=== PATIENT | male | born 1950 | race Caucasian/White ===

== ENCOUNTER → 2016-09-26 | Outpatient (CLI) | payer MEDICARE, MEDICAID | LOC: VM.CT 12:42 | PROVIDERS: ATTEND Family Medicine | DX: R70.0 Elevated erythrocyte sedimentation rate (principal); M54.9 Dorsalgia, unspecified; R63.4 Abnormal weight loss; M47.812 Spondylosis without myelopathy or radiculopathy, cervical region; M48.55XA Collapsed vertebra, not elsewhere classified, thoracolumbar region, initial encounter for fracture; W19.XXXA Unspecified fall, initial encounter | CPT/HCPCS: 70450; 72125; 72128; 72131 ==

== ENCOUNTER 2016-10-26 11:24 | Inpatient (IN) | payer MEDICARE, MEDICAID ==
[2016-10-26] MEDS ORDERED: Heparin Sodium 100 Units/ML 3 ML Syringe IVPUSH SCH (15:15)
[2016-10-26] MEDS ORDERED: Acetaminophen 325 MG Tab PO PRN (15:34)
[2016-10-26] MEDS ORDERED: Bisacodyl 5 MG Tab PO PRN ×2 (15:34→16:16)
[2016-10-26] MEDS: Furosemide 20 MG Tab PO SCH (15:50)
[2016-10-26] MEDS: Acetaminophen/HYDROcodone 325-5 MG Tab PO PRN ×2 (15:50→20:44)
[2016-10-26] MEDS: LORazepam 2 MG/ML MDV IVPUSH PRN ×2 (16:58→20:46)
[2016-10-26] MEDS: Calcium Citrate/Vitamin D3 315 MG-250 Unit Tab PO SCH (17:02)
[2016-10-26] MEDS: Insulin Aspart 100 Units/ML 3 ML Pen SUBCUT SCH (17:02)
[2016-10-26] MEDS ORDERED: CALCIUM CITRATE PO SCH (18:00)
[2016-10-26] MEDS ORDERED: VITAMIN D3 PO SCH (18:00)
[2016-10-26] MEDS ORDERED: [UNRECOGNIZED DRUG - OTHER] PO SCH (18:00)
[2016-10-26] MEDS: Heparin Sodium 100 Units/ML 3 ML Syringe IVPUSH PRN (18:21)
[2016-10-26] MEDS: Sodium Chloride 0.9% 10 ML Syringe IV PRN ×2 (18:22→20:46)
[2016-10-26] MEDS ORDERED: atorvaSTATin 10 MG Tab PO SCH (20:00)
[2016-10-26] MEDS ORDERED: OMEGA PO SCH (20:00)
[2016-10-26] MEDS ORDERED: FLUVOXAMINE MALEATE 200 MG PO SCH (20:00)
[2016-10-26] MEDS ORDERED: FLUVOXAMINE 100 MG PO SCH (20:00)
[2016-10-26] MEDS ORDERED: EPA PO SCH (20:00)
[2016-10-26] MEDS ORDERED: [UNRECOGNIZED DRUG - OTHER] PO SCH (20:00)
[2016-10-26] MEDS ORDERED: RISPERIDONE 2 MG PO SCH (20:00)
[2016-10-26] MEDS ORDERED: Furosemide 20 MG Tab PO SCH (20:00)
[2016-10-26] MEDS ORDERED: DHA PO SCH (20:00)
[2016-10-26] MEDS ORDERED: LIRAGLUTIDE 0.6 MG SUBCUT SCH (20:00)
[2016-10-26] MEDS ORDERED: FISH OIL PO SCH (20:00)
[2016-10-26] MEDS: cefTRIAXone 2 GM Vial IV SCH (20:45)
[2016-10-26] MEDS: risperiDONE 1 MG Tab PO SCH (20:47)
[2016-10-26] MEDS: atorvaSTATin 10 MG Tab PO SCH (20:47)
[2016-10-26] MEDS: Lactobacillus Rhamnosus GG (Probiotic) Cap PO SCH (20:49)
[2016-10-26] MEDS: Fish Oil/Omega-3 Fatty Acids 1 Gm Cap PO SCH (20:49)
[2016-10-26] MEDS: Enoxaparin 120 MG/0.8 ML Syringe SUBCUT SCH (20:50)
[2016-10-26] MEDS: Heparin Sodium 100 Units/ML 3 ML Syringe IVPUSH SCH (20:51)
[2016-10-26] MEDS: VICTOZA 18MG/3ML SUBCUT SCH (21:13)
--- NOTE | 2016-10-26 21:30 | PCM.HP ---
H&P History of Present Illness - General Date of Service: 10/26/16 Admit Problem/Dx: Admission Diagnosis/Problem Admission Diagnosis/Problem Postoperative infection - History of Present Illness Initial Comments - Free Text/Narative: HPI: Patient moved from [facility] to [facility] 11/08, to [facility] Psych unit 01/06. He has had a lot of trouble there with leg edema and stasis and traumatic ulceration of his lower legs. That was just starting to improve, partly because he became less physically active, in 10/09 when he fell twice at the long-term. CTs were read as abnormal and suspicious, and MRI confirmed he had an unstable spine fracture, so that was treated with fusion by grafting on 10/01/16. The wound did not look definitely infected until 10/16/16 when there was dehiscence of the skin and into the fat on removing the nader. There was a lot of serous drainage so he was sent back to [facility]. On 10/17/16 he underwent surgical exploration and debridement, after that and with cultures, the wound was again closed and he is going to 6 weeks of IV antibiotic in a PICC line in his R arm. His culture grew staph epidermidis resistant to oxacillin but sensitive to vancomycin. He is getting Rocephin and vancomycin for the 6 weeks. He did not have neurologic deficit from the unstable spine fracture that he is morbidly obese with some cognitive dysfunction, and now probably mild delirium, and requires Liliane lift for transfers. He is admitted today on Swing Bed to complete his course of antibiotics. Besides his other medical problems he has type 2 diabetes, DX since at least . His diabetes has been well controlled, Glycated Hb usually <7, including 6.8 in 02/05 and 6.7 in 09/07. Medical History: Type 2 diabetes since 06/26 Hx of DVT, on Coumadin until 12/03 Previous DX of hypertension, hyperlipidemia, osteoarthritis, morbid obesity, restless leg syndrome, depression, benign prostatic hypertrophy. Surgical History: Colonoscopy with polypectomies 03/07 Hernia repair R Lumbar fusion for unstable fracture 10/01/16 Surgical debridement for wound infection 10/17/16 and 10/25/16 Family History: Had 4 brothers, 3 still living, one of those has diabetes type 2 and another has leukemia Social History: We only know that he had been in basic care in [facility] for a few years. He has been Full Code status. He is his own guardian so far although there is consideration of having a guardian appointed. Systems Review: -General: He cannot really answer questions, agitation and mild delirium now -Eyes: No known problem -ENT: Hearing OK, has no teeth -Cardiac: Has been noted to have a heart murmur and has been told some years ago that he had one, no recorded EchoKG -Pulmonary: Smoker until , no record of any lung disease -GI: No known problem, has had colonoscopy -: Incontinent now, wearing briefs, in the long-term I believe he was continent; no problem with renal function -Musculoskeletal: His only complaint is of back pain presently, has not been able to move well enough to ambulate on his own since the back injury, did walk slowly with minimal help before that -Endocrine: As noted above, diabetes well-controlled on Levemir and Victoza -Derm: Remarkable healing of all of his stasis ulcers after his edema cleared and he no longer can scratch his lower legs -Heme: No known problem -Allergies: No seasonal allergies known -Neurologic: Usually answers questions appropriately and therefore has not had a guardian appointed so far -Psych: After elopement from the long-term he was put back in the Psych unit and has had regular Psych F/U at [facility] Lower Back Pain Score (Numeric/FACES): 2 - Related Data Allergies/Adverse Reactions: Allergies Allergy/AdvReac Type Severity Reaction Status Date / Time aspirin Allergy Other Verified 10/26/16 11:51 NSAIDS (Non-Steroidal Allergy Other Verified 10/13/16 20:05 Anti-Inflamma Home Medications: Home Meds Potassium Chloride 10 meq PO DAILY 08/28/16 [History] Acetaminophen [Tylenol] 650 mg PO Q4H PRN 10/13/16 [History] Bisacodyl [Dulcolax] 5 mg PO DAILY PRN 10/13/16 [History] Calcitonin ([place]) [Miacalcin Nasal [place]] 200 units OJ DAILY 10/13/16 [ History] Calcium Citrate/Vitamin D3 [Calcium Citrate - Vit D Caplet] 1 each PO BIDMEALS 10/13/16 [History] ClonazePAM [KlonoPIN] 1 mg PO DAILY 10/13/16 [History] Furosemide [Lasix] 20 mg PO BID 10/13/16 [History] Insulin Detemir [Levemir Flextouch] 12 unit SQ DAILY 10/13/16 [History] Liraglutide [Victoza] 0.6 mg SUBCUT BEDTIME 10/13/16 [History] Losartan [Cozaar] 100 mg PO DAILY 10/13/16 [History] Metoprolol Succinate [Toprol XL] 50 mg PO DAILY 10/13/16 [History] Multivitamin [Daily Doc] 1 each PO DAILY 10/13/16 [History] [place]-3/DHA/Epa/Fish Oil [[place] 3 500 Softgel] 1,000 mg PO BID 10/13/16 [History ] Spironolactone [Aldactone] 25 mg PO DAILY 10/13/16 [History] Warfarin [Coumadin] 2.5 mg PO DAILY 10/13/16 [History] atorvaSTATin [Lipitor] 10 mg PO BEDTIME 10/13/16 [History] fluvoxaMINE Maleate [Fluvoxamine Maleate ER] 200 mg PO BEDTIME 10/13/16 [History ] risperiDONE [Risperdal] 2 mg PO BEDTIME 10/13/16 [History] Past Medical History Cardiovascular History: Reports: High cholesterol, Hypertension Gastrointestinal History: Reports: Colon polyp, Fecal incontinence Genitourinary History: Reports: BPH Musculoskeletal History: Reports: Osteoarthritis, Other (see below) Other Musculoskeletal History: chronic, RLS Neurological History: Reports: Other (see below) Other Neuro History: mild intellectual disabilities Psychiatric History: Reports: Addiction, Depression Other Psychiatric History: alcoholism, avoidant personality disorder Endocrine/Metabolic History: Reports: Diabetes, type II, Obesity/BMI 30+ Hematologic History: Reports: Other (see below) Other Hematologic History: hyponatremia Dermatologic History: Reports: Venous stasis dermatitis Other Dermatologic History: Xerosis cutis - Past Surgical History GI Surgical History: Reports: Hernia repair/other Musculoskeletal Surgical History: Reports: Other (see below) Other Musculoskeletal Surgeries/Procedures:: Fusion lumbar thoracic spine T9-L4 Social & Family History - Family History Family Medical History: Noncontributory - Tobacco Use Smoking Status *Q: Unknown Ever Smoked Second Hand Smoke Exposure: No - Caffeine Use Caffeine Use: Reports: None - Recreational Drug Use Recreational Drug Use: No - Living Situation & Occupation Living situation: Reports: extended care facility H&P Review of Systems - Review of Systems: Review Of Systems: See Below Exam - Exam Exam: See Below - Vital Signs Vital Signs: Last Vital Signs Temp 36.8 C 10/26/16 16:16 Pulse 82 10/26/16 16:16 Resp 20 10/26/16 16:16 BP 153/82 H 10/26/16 16:16 Pulse Ox 100 10/26/16 16:16 Weight: 110.767 kg - Exam Physical Exam Comments:: Physical Exam: -General: Calling out for his nurse, possibly appropriately since he is in pain ; inappropriately he is trying to get out of bed -Eyes: Pupils equal, gaze is conjugate -Mouth and throat: Tongue appears normal, mucosa moist, edentulous -Ears: TM normal L, obscured by cerumen R -Neck: No jugular venous distention or masses -Cardiac: Soft systolic murmur as has been noted before, loudest at L sternal border, regular rhythm; now has no ankle edema, in severe contrast to what he had before, and palpable dorsalis pedis pulses; PICC line in R upper arm -Lungs: No cough or dyspnea, lung sounds normal -Abdomen: Soft and nontender, no masses or organomegaly -: No genital or rectal exam -Extremities: No edema, faint erythema where he previously had stasis ulcers; no deformity or muscle atrophy -Skin: He has nader in his back wound edges stressed, did not remove dressing today, nurses are changing that daily -Neurologic: Facial muscles symmetric, moves extremities equally, speech is clear but inappropriate -Psych: Cooperative with exam but agitated - Patient Data Lab Results last 24 hrs: Laboratory Results - last 24 hr 10/26/16 10/26/16 Range/Units 16:57 20:55 POC Glucose 127 H 137 H (74-106) mg/dL *Q Meaningful Use (ADM) - VTE *Q VTE Criteria *Q: - Stroke *Q Stroke Criteria *Q: - AMI *Q AMI Criteria *Q: Problem List Initiated/Reviewed/Updated: Yes Orders Last 24hrs: Active Orders 24 hr Category Date Time Status Admission Status [Patient Status] [ADT] Routine ADT 10/26/16 11:56 Active Patient Status [ADT] Routine ADT 10/26/16 16:14 Active Accu Check [Blood Glucose Check, Bedside] [RC] 07,,17 Care 10/26/16 16:39 Active ,20 Communication Order [RC] DAILY Care 10/26/16 19:34 Active Oxygen Therapy [RC] PRN Care 10/26/16 16:14 Active VTE/DVT Education [RC] PER UNIT ROUTINE Care 10/26/16 16:14 Active Vital Signs [RC] Q4H Care 10/26/16 16:14 Active OT Evaluation and Treatment [CONS] Routine Cons 10/26/16 13:59 Active PT Evaluation and Treatment [CONS] Routine Cons 10/26/16 14:00 Active BASIC METABOLIC PANEL,BMP [CHEM] Routine Lab 10/29/16 07:00 Ordered CBC WITH AUTO DIFF [HEME] Routine Lab 10/29/16 07:00 Ordered CULTURE MRSA SURVEY [RM] Routine Lab 10/26/16 12:27 Received INR,PT,PROTHROMBIN TIME [COAG] Routine Lab 10/29/16 07:00 Ordered VANCOMYCIN TROUGH [CHEM] Routine Lab 10/29/16 07:00 Ordered Acetaminophen [Tylenol] Med 10/26/16 16:16 Active 650 mg PO Q4H PRN Acetaminophen/HYDROcodone [[place] 325-5 MG] Med 10/26/16 14:54 Active 1 tab PO Q6H PRN Acetaminophen/HYDROcodone [[place] 325-5 MG] Med 10/26/16 14:54 Active 2 tab PO Q6H PRN Bisacodyl [Dulcolax] Med 10/26/16 15:34 Active 5 mg PO DAILY PRN Calcitonin ([place]) [Miacalcin Nasal [place]] Med 10/27/16 08:00 Active 0 ml OJ DAILY Calcium Citrate/Vitamin D3 [Calcium Citrate + D] Med 10/26/16 18:00 Active 1 tab PO BIDMEALS Cholecalciferol (Vitamin D3) [Vitamin D3] Med 10/27/16 08:00 Active 2,000 units PO DAILY ClonazePAM [KlonoPIN] Med 10/27/16 11:00 Active 1 mg PO DAILY@1100 Enoxaparin [Lovenox] Med 10/26/16 20:00 Active 120 mg SUBCUT BID Fish Oil/[place]-3 Fatty Acids [Fish Oil] Med 10/26/16 20:00 Active 1 gm PO BID Furosemide [Lasix] Med 10/26/16 16:00 Active 20 mg PO BIDDIURETIC Heparin Sodium [Heparin Lock Flush 100 Units/ML] Med 10/26/16 15:05 Active 300 unit IVPUSH ASDIRECTED PRN Heparin Sodium [Heparin Lock Flush 100 Units/ML] Med 10/26/16 21:00 Active 300 unit IVPUSH Q12H Insulin Aspart [NovoLOG] Med 10/26/16 18:00 Active 4 unit SUBCUT TIDMEALS Insulin Detemir [Levemir] Med 10/27/16 08:00 Active 12 unit SUBCUT DAILY LORazepam [Ativan] Med 10/26/16 16:30 Active 1 mg IVPUSH Q2H PRN Lactobacillus Rhamnosus GG [Culturelle] Med 10/26/16 20:00 Active 1 cap PO TID Lactulose [Cephulac] Med 10/27/16 08:00 Active 20 gm PO DAILY Losartan [Cozaar] Med 10/27/16 08:00 Active 100 mg PO DAILY Metoprolol Succinate [Toprol XL] Med 10/27/16 08:00 Active 50 mg PO DAILY Multivitamins w-Iron/Ca/FA/Min [Thera M Plus] Med 10/27/16 08:00 Active 1 tab PO DAILY Non-Formulary Medication [NF Drug] Med 10/26/16 20:00 Active 0 each SUBCUT BEDTIME Potassium Chloride [Klor-Con 10] Med 10/27/16 08:00 Active 10 meq PO DAILY Sodium Chloride 0.9% [Saline Flush] Med 10/26/16 15:06 Active 10 ml IV ASDIRECTED PRN Spironolactone [Aldactone] Med 10/27/16 08:00 Active 25 mg PO DAILY Tamsulosin [Flomax] Med 10/27/16 08:00 Active 0.4 mg PO DAILY Vancomycin 1.75 gm Med 10/27/16 07:30 Active Sodium Chloride 0.9% [Normal Saline] 250 ml IV Q12H Warfarin [Coumadin] Med 10/27/16 08:00 Active 5 mg PO DAILY atorvaSTATin [Lipitor] Med 10/26/16 20:00 Active 10 mg PO BEDTIME cefTRIAXone [Rocephin] Med 10/26/16 20:00 Active 2 gm IV BEDTIME fluvoxaMINE Maleate [Fluvoxamine Maleate ER] Med 10/26/16 20:00 Pending 200 mg PO BEDTIME risperiDONE [RisperiDAL] Med 10/26/16 20:00 Active 2 mg PO BEDTIME Resuscitation Status Routine Resus Stat 10/26/16 16:14 Ordered Medication Orders Acetaminophen (Tylenol) 650 mg PO Q4H PRN PRN Reason: Pain/Fever Acetaminophen/Hydrocodone Bitart ([place] 325-5 Mg) 1 tab PO Q6H PRN PRN Reason: MODERATE PAIN (4-6 OF 10) Last Admin: 10/26/16 20:44 Dose: 1 tab Acetaminophen/Hydrocodone Bitart ([place] 325-5 Mg) 2 tab PO Q6H PRN PRN Reason: SEVERE PAIN (7-10 OF 10) Last Admin: 10/26/16 15:50 Dose: 2 tab Atorvastatin Calcium (Lipitor) 10 mg PO BEDTIME [facility] Last Admin: 10/26/16 20:47 Dose: 10 mg Bisacodyl (Dulcolax) 5 mg PO DAILY PRN PRN Reason: CONSTIPATION Calcitonin [place] (Miacalcin Nasal [place]) 0 ml OJ DAILY [facility] Calcium Citrate (Calcium Citrate + D) 1 tab PO BIDMEALS [facility] Last Admin: 10/26/16 17:02 Dose: 1 tab Ceftriaxone Sodium (Rocephin) 2 gm IV BEDTIME [facility] Last Admin: 10/26/16 20:45 Dose: 2 gm Cholecalciferol (Vitamin D3) 2,000 units PO DAILY [facility] Clonazepam (Klonopin) 1 mg PO DAILY@1100 [facility] Enoxaparin Sodium (Lovenox) 120 mg SUBCUT BID [facility] Stop: 10/30/16 20:01 Last Admin: 10/26/16 20:50 Dose: 120 mg Fish Oil (Fish Oil) 1 gm PO BID [facility] Last Admin: 10/26/16 20:49 Dose: 1 gm Furosemide (Lasix) 20 mg PO BIDDIURETIC [facility] Last Admin: 10/26/16 15:50 Dose: 20 mg Heparin Sodium (Porcine) (Heparin Lock Flush 100 Units/Ml) 300 unit IVPUSH ASDIRECTED PRN PRN Reason: Keep Vein Open Last Admin: 10/26/16 18:21 Dose: 300 unit Heparin Sodium (Porcine) (Heparin Lock Flush 100 Units/Ml) 300 unit IVPUSH Q12H [facility] Last Admin: 10/26/16 20:51 Dose: 300 unit Vancomycin HCl 1.75 gm/ Sodium (Chloride) 250 mls @ 165 mls/hr IV Q12H [facility] Insulin Aspart (Novolog) 4 unit SUBCUT TIDMEALS [facility] Last Admin: 10/26/16 17:02 Dose: 4 units Insulin Detemir (Levemir) 12 unit SUBCUT DAILY [facility] Lactobacillus Rhamnosus (Culturelle) 1 cap PO TID [facility] Last Admin: 10/26/16 20:49 Dose: 1 cap Lactulose (Cephulac) 20 gm PO DAILY [facility] Lorazepam (Ativan) 1 mg IVPUSH Q2H PRN PRN Reason: Agitation Last Admin: 10/26/16 20:46 Dose: 1 mg Admin: 10/26/16 16:58 Dose: 1 mg Losartan Potassium (Cozaar) 100 mg PO DAILY [facility] Metoprolol Succinate (Toprol Xl) 50 mg PO DAILY [facility] Multivitamins/Minerals (Thera M Plus) 1 tab PO DAILY [facility] Victoza 18mg/3ml 0 each SUBCUT BEDTIME [facility] Last Admin: 10/26/16 21:13 Dose: Non-Formulary Medication (Fluvoxamine Maleate [Fluvoxamine Maleate Er]) 200 mg PO BEDTIME [facility] Potassium Chloride (Klor-Con 10) 10 meq PO DAILY [facility] Risperidone (Risperidal) 2 mg PO BEDTIME [facility] Last Admin: 10/26/16 20:47 Dose: 2 mg Sodium Chloride (Saline Flush) 10 ml IV ASDIRECTED PRN PRN Reason: FLUSH PICC Last Admin: 10/26/16 20:46 Dose: 10 ml Admin: 10/26/16 18:22 Dose: 10 ml Spironolactone (Aldactone) 25 mg PO DAILY [facility] Tamsulosin HCl (Flomax) 0.4 mg PO DAILY [facility] Warfarin Sodium (Coumadin) 5 mg PO DAILY [facility] Assessment/Plan Comment:: Impression: -Spinal wound dehiscence and possible infection, following surgical debridement he is getting 6 weeks of antibiotics -Cognitive dysfunction and morbid obesity, requires Liliane lift -Acute agitation and possible mild delirium -On anticoagulation for thrombosis prophylaxis and 4 Hx of previous DVT -Diabetes type 2, controlled -Hypertension, has been well controlled Plan: -IV Rocephin and vancomycin to be continued on Swing Bed 6 weeks -Anticipate return to [facility] on D/C -PT/INR, BMP, CBC on 10/29/16
[2016-10-27] MEDS: Acetaminophen 325 MG Tab PO PRN ×4 (01:20→19:31)
[2016-10-27] MEDS: Acetaminophen/HYDROcodone 325-5 MG Tab PO PRN ×4 (01:20→19:31)
[2016-10-27] MEDS: LORazepam 2 MG/ML MDV IVPUSH PRN ×3 (01:37→19:36)
[2016-10-27] MEDS: Sodium Chloride 0.9% 10 ML Syringe IV PRN ×6 (01:37→20:03)
[2016-10-27] MEDS ORDERED: Calcitonin (Salmon) Nasal Spray 3.7 ML Bottle NAS SCH (08:00)
[2016-10-27] MEDS ORDERED: Non-Formulary Medication 1 Each (Potassium Chloride [Potassium Chloride] 10 MEQ) PO SCH (08:00)
[2016-10-27] MEDS ORDERED: MULTIVITAMIN PO SCH (08:00)
[2016-10-27] MEDS ORDERED: Metoprolol Succinate 50 MG Tab.ER PO SCH (08:00)
[2016-10-27] MEDS ORDERED: Non-Formulary Medication 1 Each (Losartan [Cozaar] 100 MG) PO SCH (08:00)
[2016-10-27] MEDS ORDERED: Insulin Detemir 100 Units/ML 3 ML Pen SUBCUT SCH (08:00)
[2016-10-27] MEDS ORDERED: Warfarin 2.5 MG Tab PO SCH (08:00)
[2016-10-27] MEDS ORDERED: Spironolactone 25 MG Tab PO SCH (08:00)
[2016-10-27] MEDS ORDERED: Non-Formulary Medication 1 Each (Clonazepam [Klonopin] 1 MG) PO SCH (08:00)
[2016-10-27] MEDS: Enoxaparin 120 MG/0.8 ML Syringe SUBCUT SCH ×2 (08:02→19:54)
[2016-10-27] MEDS: Insulin Aspart 100 Units/ML 3 ML Pen SUBCUT SCH ×3 (08:03→17:40)
[2016-10-27] MEDS: Insulin Detemir 100 Units/ML 3 ML Pen SUBCUT SCH (08:03)
[2016-10-27] MEDS: Lactulose Soln 10 GM/15 ML 30 ML UD Cup PO SCH (08:04)
[2016-10-27] MEDS: Fish Oil/Omega-3 Fatty Acids 1 Gm Cap PO SCH ×2 (08:04→19:34)
[2016-10-27] MEDS: Warfarin 5 MG Tab PO SCH (08:04)
[2016-10-27] MEDS: Potassium Chloride 10 MEQ Tab.ER PO SCH (08:04)
[2016-10-27] MEDS: Cholecalciferol (Vitamin D3) 1,000 Unit Tab PO SCH (08:04)
[2016-10-27] MEDS: Metoprolol Succinate 50 MG Tab.ER PO SCH (08:04)
[2016-10-27] MEDS: Calcium Citrate/Vitamin D3 315 MG-250 Unit Tab PO SCH ×2 (08:04→17:40)
[2016-10-27] MEDS: Losartan 50 MG Tab PO SCH (08:04)
[2016-10-27] MEDS: Lactobacillus Rhamnosus GG (Probiotic) Cap PO SCH ×3 (08:04→19:33)
[2016-10-27] MEDS: Multivitamins with Iron/Calcium/Folic Acid/Minerals Tab PO SCH (08:04)
[2016-10-27] MEDS: Furosemide 20 MG Tab PO SCH ×2 (08:04→17:40)
[2016-10-27] MEDS: Tamsulosin 0.4 MG Cap.ER PO SCH (08:05)
[2016-10-27] MEDS: Spironolactone 25 MG Tab PO SCH (08:05)
[2016-10-27] MEDS: CALCITONIN NAS SCH (08:05)
[2016-10-27] MEDS: Heparin Sodium 100 Units/ML 3 ML Syringe IVPUSH SCH ×2 (09:32→20:03)
[2016-10-27] MEDS: ClonazePAM 0.5 MG Tab PO SCH (11:19)
[2016-10-27] MEDS: atorvaSTATin 10 MG Tab PO SCH (19:33)
[2016-10-27] MEDS: risperiDONE 1 MG Tab PO SCH (19:34)
[2016-10-27] MEDS: cefTRIAXone 2 GM Vial IV SCH (19:47)
[2016-10-27] MEDS: VICTOZA 18MG/3ML SUBCUT SCH (19:55)
[2016-10-27] MEDS: FLUVOXAMINE 100 MG PO SCH (20:05)
[2016-10-28] MEDS: Acetaminophen 325 MG Tab PO PRN ×3 (01:33→17:10)
[2016-10-28] MEDS: Acetaminophen/HYDROcodone 325-5 MG Tab PO PRN ×4 (01:33→20:26)
[2016-10-28] MEDS: Spironolactone 25 MG Tab PO SCH (08:37)
[2016-10-28] MEDS: Fish Oil/Omega-3 Fatty Acids 1 Gm Cap PO SCH ×2 (08:37→19:53)
[2016-10-28] MEDS: Losartan 50 MG Tab PO SCH (08:37)
[2016-10-28] MEDS: Lactobacillus Rhamnosus GG (Probiotic) Cap PO SCH ×3 (08:38→19:53)
[2016-10-28] MEDS: Warfarin 5 MG Tab PO SCH (08:38)
[2016-10-28] MEDS: Furosemide 20 MG Tab PO SCH ×2 (08:38→17:09)
[2016-10-28] MEDS: Tamsulosin 0.4 MG Cap.ER PO SCH (08:38)
[2016-10-28] MEDS: Potassium Chloride 10 MEQ Tab.ER PO SCH (08:38)
[2016-10-28] MEDS: Cholecalciferol (Vitamin D3) 1,000 Unit Tab PO SCH (08:38)
[2016-10-28] MEDS: Multivitamins with Iron/Calcium/Folic Acid/Minerals Tab PO SCH (08:38)
[2016-10-28] MEDS: Calcium Citrate/Vitamin D3 315 MG-250 Unit Tab PO SCH ×2 (08:38→17:09)
[2016-10-28] MEDS: Metoprolol Succinate 50 MG Tab.ER PO SCH (08:38)
[2016-10-28] MEDS: CALCITONIN NAS SCH (08:42)
[2016-10-28] MEDS: Insulin Detemir 100 Units/ML 3 ML Pen SUBCUT SCH (08:42)
[2016-10-28] MEDS: Insulin Aspart 100 Units/ML 3 ML Pen SUBCUT SCH ×3 (08:43→17:12)
[2016-10-28] MEDS: Enoxaparin 120 MG/0.8 ML Syringe SUBCUT SCH ×2 (08:44→19:53)
[2016-10-28] MEDS: Sodium Chloride 0.9% 10 ML Syringe IV PRN ×3 (08:44→22:36)
[2016-10-28] MEDS: Heparin Sodium 100 Units/ML 3 ML Syringe IVPUSH SCH ×2 (08:44→21:13)
[2016-10-28] MEDS: Lactulose Soln 10 GM/15 ML 30 ML UD Cup PO SCH (08:45)
[2016-10-28] MEDS: ClonazePAM 0.5 MG Tab PO SCH (11:18)
[2016-10-28] MEDS: risperiDONE 1 MG Tab PO SCH (19:53)
[2016-10-28] MEDS: atorvaSTATin 10 MG Tab PO SCH (19:53)
[2016-10-28] MEDS: FLUVOXAMINE 100 MG PO SCH (19:54)
[2016-10-28] MEDS: VICTOZA 18MG/3ML SUBCUT SCH (19:55)
[2016-10-28] MEDS: LORazepam 2 MG/ML MDV IVPUSH PRN ×2 (20:23→22:36)
[2016-10-28] MEDS: cefTRIAXone 2 GM Vial IV SCH (21:10)
[2016-10-28] MEDS: Sodium Chloride 0.9% 100 ML IV SCH (21:12)
[2016-10-29] MEDS: Sodium Chloride 0.9% 100 ML IV SCH ×2 (07:05→19:45)
[2016-10-29 07:35] LABS: CHLORIDE,CL 105 mmol/L (98-107); SODIUM,NA 139 mmol/L (136-145)
[2016-10-29] MEDS: Enoxaparin 120 MG/0.8 ML Syringe SUBCUT SCH ×2 (08:25→20:31)
[2016-10-29] MEDS: Calcium Citrate/Vitamin D3 315 MG-250 Unit Tab PO SCH ×2 (08:26→17:08)
[2016-10-29] MEDS: Tamsulosin 0.4 MG Cap.ER PO SCH (08:26)
[2016-10-29] MEDS: Losartan 50 MG Tab PO SCH (08:26)
[2016-10-29] MEDS: Metoprolol Succinate 50 MG Tab.ER PO SCH (08:26)
[2016-10-29] MEDS: Cholecalciferol (Vitamin D3) 1,000 Unit Tab PO SCH (08:26)
[2016-10-29] MEDS: Lactobacillus Rhamnosus GG (Probiotic) Cap PO SCH ×3 (08:26→20:31)
[2016-10-29] MEDS: Multivitamins with Iron/Calcium/Folic Acid/Minerals Tab PO SCH (08:27)
[2016-10-29] MEDS: Furosemide 20 MG Tab PO SCH ×2 (08:27→15:00)
[2016-10-29] MEDS: Warfarin 5 MG Tab PO SCH (08:27)
[2016-10-29] MEDS: Potassium Chloride 10 MEQ Tab.ER PO SCH (08:27)
[2016-10-29] MEDS: Fish Oil/Omega-3 Fatty Acids 1 Gm Cap PO SCH ×2 (08:27→20:31)
[2016-10-29] MEDS: Spironolactone 25 MG Tab PO SCH (08:27)
[2016-10-29] MEDS: Insulin Aspart 100 Units/ML 3 ML Pen SUBCUT SCH ×3 (08:28→17:08)
[2016-10-29] MEDS: Insulin Detemir 100 Units/ML 3 ML Pen SUBCUT SCH (08:28)
[2016-10-29] MEDS: Lactulose Soln 10 GM/15 ML 30 ML UD Cup PO SCH (08:29)
[2016-10-29] MEDS: CALCITONIN NAS SCH (08:30)
[2016-10-29] MEDS: Acetaminophen 325 MG Tab PO PRN (08:33)
[2016-10-29] MEDS: Acetaminophen/HYDROcodone 325-5 MG Tab PO PRN ×3 (08:34→21:07)
[2016-10-29] MEDS: Heparin Sodium 100 Units/ML 3 ML Syringe IVPUSH SCH ×2 (09:31→22:23)
[2016-10-29] MEDS: Sodium Chloride 0.9% 10 ML Syringe IV PRN ×3 (09:31→19:39)
[2016-10-29] MEDS: ClonazePAM 0.5 MG Tab PO SCH (11:18)
[2016-10-29] MEDS: LORazepam 2 MG/ML MDV IVPUSH PRN ×3 (16:07→21:50)
[2016-10-29] MEDS: Heparin Sodium 100 Units/ML 3 ML Syringe IVPUSH PRN ×2 (16:09→19:39)
[2016-10-29] MEDS: risperiDONE 1 MG Tab PO SCH (20:30)
[2016-10-29] MEDS: atorvaSTATin 10 MG Tab PO SCH (20:31)
[2016-10-29] MEDS: FLUVOXAMINE 100 MG PO SCH (20:33)
[2016-10-29] MEDS: cefTRIAXone 2 GM Vial IV SCH (22:23)
[2016-10-30] MEDS: LORazepam 2 MG/ML MDV IVPUSH PRN ×2 (02:42→06:17)
[2016-10-30] MEDS: Heparin Sodium 100 Units/ML 3 ML Syringe IVPUSH PRN ×3 (02:46→20:04)
[2016-10-30] MEDS: Acetaminophen/HYDROcodone 325-5 MG Tab PO PRN ×4 (03:03→19:58)
[2016-10-30] MEDS: Sodium Chloride 0.9% 10 ML Syringe IV PRN ×3 (06:23→20:04)
[2016-10-30] MEDS: Acetaminophen 325 MG Tab PO PRN (06:37)
[2016-10-30] MEDS: Enoxaparin 120 MG/0.8 ML Syringe SUBCUT SCH ×2 (09:27→20:03)
[2016-10-30] MEDS: Cholecalciferol (Vitamin D3) 1,000 Unit Tab PO SCH (09:29)
[2016-10-30] MEDS: Multivitamins with Iron/Calcium/Folic Acid/Minerals Tab PO SCH (09:29)
[2016-10-30] MEDS: Metoprolol Succinate 50 MG Tab.ER PO SCH (09:30)
[2016-10-30] MEDS: Calcium Citrate/Vitamin D3 315 MG-250 Unit Tab PO SCH ×2 (09:30→18:16)
[2016-10-30] MEDS: Fish Oil/Omega-3 Fatty Acids 1 Gm Cap PO SCH ×2 (09:30→20:00)
[2016-10-30] MEDS: Losartan 50 MG Tab PO SCH (09:31)
[2016-10-30] MEDS: Potassium Chloride 10 MEQ Tab.ER PO SCH (09:31)
[2016-10-30] MEDS: Lactobacillus Rhamnosus GG (Probiotic) Cap PO SCH ×3 (09:32→19:58)
[2016-10-30] MEDS: Warfarin 5 MG Tab PO SCH (09:32)
[2016-10-30] MEDS: Tamsulosin 0.4 MG Cap.ER PO SCH (09:32)
[2016-10-30] MEDS: Furosemide 20 MG Tab PO SCH ×2 (09:32→15:31)
[2016-10-30] MEDS: Spironolactone 25 MG Tab PO SCH (09:33)
[2016-10-30] MEDS: Lactulose Soln 10 GM/15 ML 30 ML UD Cup PO SCH (09:34)
[2016-10-30] MEDS: Insulin Detemir 100 Units/ML 3 ML Pen SUBCUT SCH (09:37)
[2016-10-30] MEDS: CALCITONIN NAS SCH (09:38)
[2016-10-30] MEDS: Insulin Aspart 100 Units/ML 3 ML Pen SUBCUT SCH ×3 (09:39→18:17)
[2016-10-30] MEDS: ClonazePAM 0.5 MG Tab PO SCH (11:13)
[2016-10-30] MEDS: Heparin Sodium 100 Units/ML 3 ML Syringe IVPUSH SCH ×2 (11:15→22:44)
[2016-10-30] MEDS: atorvaSTATin 10 MG Tab PO SCH (19:58)
[2016-10-30] MEDS: FLUVOXAMINE 100 MG PO SCH (20:00)
[2016-10-30] MEDS: risperiDONE 1 MG Tab PO SCH (20:00)
[2016-10-30] MEDS: cefTRIAXone 2 GM Vial IV SCH (20:19)
[2016-10-30] MEDS: LORazepam 2 MG/ML MDV IV PRN (20:51)
[2016-10-31] MEDS: Acetaminophen/HYDROcodone 325-5 MG Tab PO PRN ×4 (03:14→20:37)
[2016-10-31] MEDS: CALCITONIN NAS SCH (08:05)
[2016-10-31] MEDS: Lactulose Soln 10 GM/15 ML 30 ML UD Cup PO SCH (08:07)
[2016-10-31] MEDS: Furosemide 20 MG Tab PO SCH ×2 (08:10→15:11)
[2016-10-31] MEDS: Calcium Citrate/Vitamin D3 315 MG-250 Unit Tab PO SCH ×2 (08:11→17:22)
[2016-10-31] MEDS: Fish Oil/Omega-3 Fatty Acids 1 Gm Cap PO SCH ×2 (08:11→19:57)
[2016-10-31] MEDS: Metoprolol Succinate 50 MG Tab.ER PO SCH (08:12)
[2016-10-31] MEDS: Losartan 50 MG Tab PO SCH (08:12)
[2016-10-31] MEDS: Lactobacillus Rhamnosus GG (Probiotic) Cap PO SCH ×3 (08:13→19:57)
[2016-10-31] MEDS: Cholecalciferol (Vitamin D3) 1,000 Unit Tab PO SCH (08:13)
[2016-10-31] MEDS: Spironolactone 25 MG Tab PO SCH (08:13)
[2016-10-31] MEDS: Potassium Chloride 10 MEQ Tab.ER PO SCH (08:14)
[2016-10-31] MEDS: Warfarin 5 MG Tab PO SCH (08:14)
[2016-10-31] MEDS: Multivitamins with Iron/Calcium/Folic Acid/Minerals Tab PO SCH (08:14)
[2016-10-31] MEDS: Tamsulosin 0.4 MG Cap.ER PO SCH (08:14)
[2016-10-31] MEDS: Insulin Aspart 100 Units/ML 3 ML Pen SUBCUT SCH ×3 (08:15→17:23)
[2016-10-31] MEDS: Insulin Detemir 100 Units/ML 3 ML Pen SUBCUT SCH (08:18)
[2016-10-31] MEDS: Heparin Sodium 100 Units/ML 3 ML Syringe IVPUSH SCH ×2 (09:25→21:55)
[2016-10-31] MEDS: ClonazePAM 0.5 MG Tab PO SCH (10:43)
[2016-10-31] MEDS: risperiDONE 1 MG Tab PO SCH ×2 (10:44→19:57)
[2016-10-31] MEDS: LORazepam 2 MG/ML MDV IV PRN ×2 (12:21→20:39)
[2016-10-31] MEDS: atorvaSTATin 10 MG Tab PO SCH (19:57)
[2016-10-31] MEDS: FLUVOXAMINE 100 MG PO SCH (20:00)
[2016-10-31] MEDS: cefTRIAXone 2 GM Vial IV SCH (21:47)
[2016-11-01] MEDS: Acetaminophen/HYDROcodone 325-5 MG Tab PO PRN ×4 (06:29→20:21)
[2016-11-01] MEDS: Tamsulosin 0.4 MG Cap.ER PO SCH (08:49)
[2016-11-01] MEDS: Fish Oil/Omega-3 Fatty Acids 1 Gm Cap PO SCH ×2 (08:49→20:22)
[2016-11-01] MEDS: Losartan 50 MG Tab PO SCH (08:49)
[2016-11-01] MEDS: Warfarin 5 MG Tab PO SCH (08:49)
[2016-11-01] MEDS: Furosemide 20 MG Tab PO SCH ×2 (08:49→15:47)
[2016-11-01] MEDS: Spironolactone 25 MG Tab PO SCH (08:49)
[2016-11-01] MEDS: Potassium Chloride 10 MEQ Tab.ER PO SCH (08:49)
[2016-11-01] MEDS: risperiDONE 1 MG Tab PO SCH ×2 (08:50→20:22)
[2016-11-01] MEDS: Metoprolol Succinate 50 MG Tab.ER PO SCH (08:50)
[2016-11-01] MEDS: Cholecalciferol (Vitamin D3) 1,000 Unit Tab PO SCH (08:50)
[2016-11-01] MEDS: Calcium Citrate/Vitamin D3 315 MG-250 Unit Tab PO SCH ×2 (08:50→18:09)
[2016-11-01] MEDS: Multivitamins with Iron/Calcium/Folic Acid/Minerals Tab PO SCH (08:50)
[2016-11-01] MEDS: Lactobacillus Rhamnosus GG (Probiotic) Cap PO SCH ×3 (08:50→20:22)
[2016-11-01] MEDS: Insulin Detemir 100 Units/ML 3 ML Pen SUBCUT SCH (08:51)
[2016-11-01] MEDS: Insulin Aspart 100 Units/ML 3 ML Pen SUBCUT SCH ×3 (08:51→18:22)
[2016-11-01] MEDS: Lactulose Soln 10 GM/15 ML 30 ML UD Cup PO SCH (08:51)
[2016-11-01] MEDS: CALCITONIN NAS SCH (08:53)
[2016-11-01] MEDS: Sodium Chloride 0.9% 10 ML Syringe IV PRN ×2 (09:11→11:13)
[2016-11-01] MEDS: Heparin Sodium 100 Units/ML 3 ML Syringe IVPUSH SCH ×2 (11:13→22:09)
[2016-11-01] MEDS: ClonazePAM 0.5 MG Tab PO SCH (11:13)
[2016-11-01] MEDS: LORazepam 2 MG/ML MDV IV PRN ×2 (12:35→15:47)
[2016-11-01] MEDS: Haloperidol Lactate 5 MG/ML SDV IVPUSH PRN ×4 (16:32→21:01)
[2016-11-01] MEDS: atorvaSTATin 10 MG Tab PO SCH (20:22)
[2016-11-01] MEDS: FLUVOXAMINE 100 MG PO SCH (20:22)
[2016-11-01] MEDS: cefTRIAXone 2 GM Vial IV SCH (22:00)
[2016-11-02] MEDS: Haloperidol Lactate 5 MG/ML SDV IVPUSH PRN (06:18)
[2016-11-02] MEDS: Acetaminophen/HYDROcodone 325-5 MG Tab PO PRN ×2 (06:18→14:13)
[2016-11-02] MEDS: LORazepam 2 MG/ML MDV IV PRN ×4 (07:47→14:13)
[2016-11-02] MEDS: Lactulose Soln 10 GM/15 ML 30 ML UD Cup PO SCH (07:47)
[2016-11-02] MEDS: Lactobacillus Rhamnosus GG (Probiotic) Cap PO SCH ×3 (07:48→20:09)
[2016-11-02] MEDS: Cholecalciferol (Vitamin D3) 1,000 Unit Tab PO SCH (07:48)
[2016-11-02] MEDS: Fish Oil/Omega-3 Fatty Acids 1 Gm Cap PO SCH ×2 (07:48→20:07)
[2016-11-02] MEDS: Multivitamins with Iron/Calcium/Folic Acid/Minerals Tab PO SCH (07:48)
[2016-11-02] MEDS: Losartan 50 MG Tab PO SCH (07:48)
[2016-11-02] MEDS: Calcium Citrate/Vitamin D3 315 MG-250 Unit Tab PO SCH ×2 (07:48→17:44)
[2016-11-02] MEDS: Tamsulosin 0.4 MG Cap.ER PO SCH (07:48)
[2016-11-02] MEDS: Furosemide 20 MG Tab PO SCH ×2 (07:48→17:45)
[2016-11-02] MEDS: Potassium Chloride 10 MEQ Tab.ER PO SCH (07:48)
[2016-11-02] MEDS: Metoprolol Succinate 50 MG Tab.ER PO SCH (07:49)
[2016-11-02] MEDS: Warfarin 5 MG Tab PO SCH (07:49)
[2016-11-02] MEDS: risperiDONE 1 MG Tab PO SCH ×2 (07:49→20:08)
[2016-11-02] MEDS: Spironolactone 25 MG Tab PO SCH (07:49)
[2016-11-02] MEDS: CALCITONIN NAS SCH (07:50)
[2016-11-02] MEDS: Insulin Aspart 100 Units/ML 3 ML Pen SUBCUT SCH ×3 (07:50→17:52)
[2016-11-02] MEDS: Insulin Detemir 100 Units/ML 3 ML Pen SUBCUT SCH (07:50)
[2016-11-02] MEDS: Sodium Chloride 0.9% 100 ML IV SCH ×2 (07:51→20:01)
[2016-11-02] MEDS: Heparin Sodium 100 Units/ML 3 ML Syringe IVPUSH SCH ×2 (09:37→20:15)
[2016-11-02] MEDS: Sodium Chloride 0.9% 10 ML Syringe IV PRN ×3 (09:38→20:03)
[2016-11-02] MEDS: ClonazePAM 0.5 MG Tab PO SCH ×3 (11:52→17:44)
[2016-11-02] MEDS: Haloperidol Lactate 5 MG/ML SDV IVPUSH SCH ×2 (12:18→17:46)
[2016-11-02] MEDS: cefTRIAXone 2 GM Vial IV SCH (20:01)
[2016-11-02] MEDS: atorvaSTATin 10 MG Tab PO SCH (20:09)
[2016-11-02] MEDS: FLUVOXAMINE 100 MG PO SCH (20:13)
[2016-11-03] MEDS: Sodium Chloride 0.9% 10 ML Syringe IV PRN ×6 (00:14→20:24)
[2016-11-03] MEDS: Haloperidol Lactate 5 MG/ML SDV IVPUSH SCH ×5 (00:14→17:45)
[2016-11-03] MEDS: Acetaminophen/HYDROcodone 325-5 MG Tab PO PRN (06:41)
[2016-11-03] MEDS: Acetaminophen 325 MG Tab PO PRN ×3 (06:41→18:06)
[2016-11-03] MEDS: Multivitamins with Iron/Calcium/Folic Acid/Minerals Tab PO SCH (08:12)
[2016-11-03] MEDS: Lactobacillus Rhamnosus GG (Probiotic) Cap PO SCH ×3 (08:12→20:27)
[2016-11-03] MEDS: Calcium Citrate/Vitamin D3 315 MG-250 Unit Tab PO SCH ×2 (08:12→17:45)
[2016-11-03] MEDS: Furosemide 20 MG Tab PO SCH ×2 (08:12→17:45)
[2016-11-03] MEDS: Metoprolol Succinate 50 MG Tab.ER PO SCH (08:12)
[2016-11-03] MEDS: Lactulose Soln 10 GM/15 ML 30 ML UD Cup PO SCH (08:12)
[2016-11-03] MEDS: Potassium Chloride 10 MEQ Tab.ER PO SCH (08:13)
[2016-11-03] MEDS: Spironolactone 25 MG Tab PO SCH (08:13)
[2016-11-03] MEDS: Cholecalciferol (Vitamin D3) 1,000 Unit Tab PO SCH (08:13)
[2016-11-03] MEDS: Warfarin 5 MG Tab PO SCH (08:13)
[2016-11-03] MEDS: risperiDONE 1 MG Tab PO SCH ×2 (08:13→20:26)
[2016-11-03] MEDS: Fish Oil/Omega-3 Fatty Acids 1 Gm Cap PO SCH ×2 (08:13→20:26)
[2016-11-03] MEDS: Tamsulosin 0.4 MG Cap.ER PO SCH (08:13)
[2016-11-03] MEDS: Losartan 50 MG Tab PO SCH (08:13)
[2016-11-03] MEDS: ClonazePAM 0.5 MG Tab PO SCH ×2 (08:14→17:45)
[2016-11-03] MEDS: CALCITONIN NAS SCH (08:14)
[2016-11-03] MEDS: Insulin Aspart 100 Units/ML 3 ML Pen SUBCUT SCH ×3 (08:15→17:46)
[2016-11-03] MEDS: Insulin Detemir 100 Units/ML 3 ML Pen SUBCUT SCH (08:15)
[2016-11-03] MEDS: Heparin Sodium 100 Units/ML 3 ML Syringe IVPUSH SCH ×2 (10:24→20:45)
[2016-11-03 16:04] LABS: CHLORIDE,CL 103 mmol/L (98-107); SODIUM,NA 135 mmol/L (136-145)
--- NOTE | 2016-11-03 16:05 | PCM.SN ---
- Free Text/Narrative Note: Called this afternoon by nursing to evaluate the patient in regard to gurgling respiration and a fever of 102. He ate lunch without issues and has not been coughing or choking on his food. By the time I arrived, nursing staff had suctioned the patient with significant improvement in respiratory status. He has been coughing some this afternoon and the appearance of what was suctioned seemed to be of emesis that he was unable to clear fully on his own. Vital signs reviewed. Temperature improved with tylenol. Patient is somnolent but does alert to voice and answers some questions; per nursing staff, this is his baseline mental status. His heart sounds good with RRR, normal S1 and S2, and no murmurs. Lungs are clear bilaterally. Will obtain CBC, CRP, CMP, and lactate. Will also do a portable chest x-ray. Anticipate this is an aspiration reaction. Patient is already on dual antibiotics and is really only missing coverage for anaerobes. Given the acute symptoms following the event, it is unlikely this is a bacterial process and more likely a reaction to the chemical aspiration. Will observe for now. If his fever recurs or his WBC are significantly elevated, we will reconsider expanding antibiotic coverage. I will check on the patient again tomorrow.
[2016-11-03] MEDS ORDERED: Sodium Chloride 0.9% 500 ML IV ONE ×2 (18:43→19:42)
[2016-11-03] MEDS: Sodium Chloride 0.9% 100 ML IV SCH (20:24)
[2016-11-03] MEDS: cefTRIAXone 2 GM Vial IV SCH (20:26)
[2016-11-03] MEDS: atorvaSTATin 10 MG Tab PO SCH (20:27)
[2016-11-03] MEDS: FLUVOXAMINE 100 MG PO SCH (20:28)
--- NOTE | 2016-11-03 21:18 | PCM.SN ---
- Free Text/Narrative Note: Called back by nursing to reassess the patient due to ongoing fevers and tachycardia. Patient remains awake but minimally responsive to questions, which is near his baseline. At the time of the call, the patient's heart rate was in the 140s. I ordered 500 cc of IV fluids and came in to assess the patient. By the time I arrived, his heart rate was already down into the 120s. He is resting comfortably in bed. He will follow commands to squeeze my fingers bilaterally and spontaneously moves his legs bilaterally as well. Heart sounds are normal. Lungs remain clear. I did call and speak to the hospitalist in [place] to see if he thought the patient should be transferred there. He felt they would not do anything differently in [place] and that this is likely a viral infection given the patient being broadly covered on antibiotics. He would not recommend changing them. Nursing staff astutely suggested the possibility of neuroleptic malignant syndrome based on recent adjustments in his antipsychotic medications. His exam is not consistent with that as he has no hyperreflexia or increased muscle tone but it is reasonable to obtain labs to support this. Additional labs were obtained, including blood cultures, INR, influenza, CK, and repeat CBC (patient's Hgb had dropped slightly since last check so concern was present for progressive anemia as a contributor to his tachycardia). His influenza returned negative, Hgb stable, CK negative, and INR is pending. Will continue IV fluids, antipyretics, and monitor closely overnight with no changes in his antibiotics. Symptoms likely secondary to aspiration pneumonitis vs. viral illness.
--- NOTE | 2016-11-03 21:21 | PCM.SN ---
- Free Text/Narrative Note: In the absence of focal neurologic symptoms, would not do a CT head at this time. PE considered but highly unlikely in the setting of a recently therapeutic INR. Will recheck an INR with labs today along with other labs to ensure it remains therapeutic.
[2016-11-04] MEDS: ClonazePAM 0.5 MG Tab PO SCH ×2 (08:35→16:35)
--- NOTE | 2016-11-04 08:55 | PCM.SN ---
- Free Text/Narrative Note: Patient had a much better night with improvement in vital signs. His sedative medications were adjusted due to concern this may be part of the problem. Will otherwise continue current cares.
[2016-11-04] MEDS: Lactulose Soln 10 GM/15 ML 30 ML UD Cup PO SCH (09:01)
[2016-11-04] MEDS: Metoprolol Succinate 50 MG Tab.ER PO SCH (09:02)
[2016-11-04] MEDS: Furosemide 20 MG Tab PO SCH ×2 (09:02→16:35)
[2016-11-04] MEDS: risperiDONE 1 MG Tab PO SCH ×2 (09:02→20:38)
[2016-11-04] MEDS: Potassium Chloride 10 MEQ Tab.ER PO SCH (09:02)
[2016-11-04] MEDS: Tamsulosin 0.4 MG Cap.ER PO SCH (09:02)
[2016-11-04] MEDS: Fish Oil/Omega-3 Fatty Acids 1 Gm Cap PO SCH ×2 (09:03→20:38)
[2016-11-04] MEDS: Cholecalciferol (Vitamin D3) 1,000 Unit Tab PO SCH (09:03)
[2016-11-04] MEDS: Warfarin 5 MG Tab PO SCH (09:03)
[2016-11-04] MEDS: Lactobacillus Rhamnosus GG (Probiotic) Cap PO SCH ×3 (09:03→20:37)
[2016-11-04] MEDS: Spironolactone 25 MG Tab PO SCH (09:03)
[2016-11-04] MEDS: Multivitamins with Iron/Calcium/Folic Acid/Minerals Tab PO SCH (09:04)
[2016-11-04] MEDS: Insulin Detemir 100 Units/ML 3 ML Pen SUBCUT SCH (09:04)
[2016-11-04] MEDS: Losartan 50 MG Tab PO SCH (09:04)
[2016-11-04] MEDS: CALCITONIN NAS SCH (09:04)
[2016-11-04] MEDS: Calcium Citrate/Vitamin D3 315 MG-250 Unit Tab PO SCH ×2 (09:04→20:37)
[2016-11-04] MEDS: Insulin Aspart 100 Units/ML 3 ML Pen SUBCUT SCH ×3 (09:05→18:29)
[2016-11-04] MEDS: Sodium Chloride 0.9% 10 ML Syringe IV PRN ×2 (11:17→20:24)
[2016-11-04] MEDS: Heparin Sodium 100 Units/ML 3 ML Syringe IVPUSH SCH ×2 (11:18→20:37)
[2016-11-04] MEDS: cefTRIAXone 2 GM Vial IV SCH (20:19)
[2016-11-04] MEDS: Sodium Chloride 0.9% 100 ML IV SCH (20:21)
[2016-11-04] MEDS: atorvaSTATin 10 MG Tab PO SCH (20:38)
[2016-11-04] MEDS: FLUVOXAMINE 100 MG PO SCH (20:38)
[2016-11-05 07:26] LABS: CHLORIDE,CL 105 mmol/L (98-107); SODIUM,NA 137 mmol/L (136-145)
[2016-11-05] MEDS: Insulin Detemir 100 Units/ML 3 ML Pen SUBCUT SCH (08:13)
[2016-11-05] MEDS: Insulin Aspart 100 Units/ML 3 ML Pen SUBCUT SCH ×3 (08:15→17:30)
[2016-11-05] MEDS: CALCITONIN NAS SCH (08:18)
[2016-11-05] MEDS: Fish Oil/Omega-3 Fatty Acids 1 Gm Cap PO SCH ×2 (08:20→19:43)
[2016-11-05] MEDS: Lactulose Soln 10 GM/15 ML 30 ML UD Cup PO SCH (08:20)
[2016-11-05] MEDS: Calcium Citrate/Vitamin D3 315 MG-250 Unit Tab PO SCH ×2 (08:21→17:30)
[2016-11-05] MEDS: Spironolactone 25 MG Tab PO SCH (08:21)
[2016-11-05] MEDS: Warfarin 5 MG Tab PO SCH (08:21)
[2016-11-05] MEDS: Furosemide 20 MG Tab PO SCH ×2 (08:21→16:53)
[2016-11-05] MEDS: Lactobacillus Rhamnosus GG (Probiotic) Cap PO SCH ×3 (08:21→19:44)
[2016-11-05] MEDS: Cholecalciferol (Vitamin D3) 1,000 Unit Tab PO SCH (08:21)
[2016-11-05] MEDS: Potassium Chloride 10 MEQ Tab.ER PO SCH (08:21)
[2016-11-05] MEDS: risperiDONE 1 MG Tab PO SCH ×2 (08:22→19:44)
[2016-11-05] MEDS: ClonazePAM 0.5 MG Tab PO SCH ×2 (08:25→16:53)
[2016-11-05] MEDS: Multivitamins with Iron/Calcium/Folic Acid/Minerals Tab PO SCH (08:26)
[2016-11-05] MEDS: Tamsulosin 0.4 MG Cap.ER PO SCH (08:26)
[2016-11-05] MEDS: Losartan 50 MG Tab PO SCH (08:26)
[2016-11-05] MEDS: Acetaminophen 325 MG Tab PO PRN (08:27)
[2016-11-05] MEDS: Metoprolol Succinate 50 MG Tab.ER PO SCH (08:27)
[2016-11-05] MEDS: Sodium Chloride 0.9% 10 ML Syringe IV PRN (10:41)
[2016-11-05] MEDS: Heparin Sodium 100 Units/ML 3 ML Syringe IVPUSH SCH ×2 (10:43→21:21)
[2016-11-05] MEDS: cefTRIAXone 2 GM Vial IV SCH (19:44)
[2016-11-05] MEDS: atorvaSTATin 10 MG Tab PO SCH (19:44)
[2016-11-05] MEDS: FLUVOXAMINE 100 MG PO SCH (19:45)
[2016-11-05] MEDS: Acetaminophen/HYDROcodone 325-5 MG Tab PO PRN (21:14)
[2016-11-05] MEDS: LORazepam 2 MG/ML MDV IV PRN (21:14)
[2016-11-06] MEDS: LORazepam 2 MG/ML MDV IV PRN ×3 (00:11→20:51)
[2016-11-06] MEDS: Sodium Chloride 0.9% 100 ML IV SCH (07:44)
[2016-11-06] MEDS: Lactulose Soln 10 GM/15 ML 30 ML UD Cup PO SCH (07:44)
[2016-11-06] MEDS: ClonazePAM 0.5 MG Tab PO SCH (07:45)
[2016-11-06] MEDS: Multivitamins with Iron/Calcium/Folic Acid/Minerals Tab PO SCH (07:46)
[2016-11-06] MEDS: Lactobacillus Rhamnosus GG (Probiotic) Cap PO SCH ×3 (07:46→19:41)
[2016-11-06] MEDS: Calcium Citrate/Vitamin D3 315 MG-250 Unit Tab PO SCH ×2 (07:46→17:01)
[2016-11-06] MEDS: Furosemide 20 MG Tab PO SCH ×2 (07:47→17:01)
[2016-11-06] MEDS: risperiDONE 1 MG Tab PO SCH ×2 (07:47→19:43)
[2016-11-06] MEDS: Cholecalciferol (Vitamin D3) 1,000 Unit Tab PO SCH (07:47)
[2016-11-06] MEDS: Metoprolol Succinate 50 MG Tab.ER PO SCH (07:48)
[2016-11-06] MEDS: Tamsulosin 0.4 MG Cap.ER PO SCH (07:49)
[2016-11-06] MEDS: Spironolactone 25 MG Tab PO SCH (07:49)
[2016-11-06] MEDS: Warfarin 5 MG Tab PO SCH (07:49)
[2016-11-06] MEDS: Potassium Chloride 10 MEQ Tab.ER PO SCH (07:49)
[2016-11-06] MEDS: Losartan 50 MG Tab PO SCH (07:49)
[2016-11-06] MEDS: Fish Oil/Omega-3 Fatty Acids 1 Gm Cap PO SCH ×2 (07:49→19:41)
[2016-11-06] MEDS: Insulin Detemir 100 Units/ML 3 ML Pen SUBCUT SCH (07:52)
[2016-11-06] MEDS: CALCITONIN NAS SCH (07:54)
[2016-11-06] MEDS: Insulin Aspart 100 Units/ML 3 ML Pen SUBCUT SCH ×3 (07:55→17:03)
[2016-11-06] MEDS: Acetaminophen/HYDROcodone 325-5 MG Tab PO PRN ×2 (09:49→18:29)
[2016-11-06] MEDS: Heparin Sodium 100 Units/ML 3 ML Syringe IVPUSH SCH ×3 (09:49→22:28)
[2016-11-06] MEDS: Sodium Chloride 0.9% 10 ML Syringe IV PRN (12:26)
[2016-11-06] MEDS: Heparin Sodium 100 Units/ML 3 ML Syringe IVPUSH PRN (12:26)
[2016-11-06] MEDS: FLUVOXAMINE 100 MG PO SCH (19:42)
[2016-11-06] MEDS: atorvaSTATin 10 MG Tab PO SCH (19:42)
[2016-11-06] MEDS: cefTRIAXone 2 GM Vial IV SCH (19:44)
--- NOTE | 2016-11-06 21:34 | PCM.PN ---
- General Info Date of Service: 11/06/16 Subjective Update: Going into last weekend he was very agitated and required leg crawled out of bed , undesirable since he is still postop spinal fusion for an unstable back fracture. We sedated him by increasing Risperdal to 2 mg q.h.s., added Haldol 5 mg IV q. 1/2 hour p.r.n. agitation, that did not seem to help so his Klonopin was increased from 0.5 mg q.h.s. up to 2 mg BID . That did cause some oversedation so during the weekend that was decreased. Today he is still quite sleepy, doesn't want to open his eyes very widely, has had temp to 99, although the nurses say his sutured back wound still looks intact. - Patient Data Vitals - most recent: Last Vital Signs Temp 37.3 C 11/06/16 06:00 Pulse 92 11/06/16 07:48 Resp 24 H 11/06/16 06:00 BP 145/75 H 11/06/16 07:48 Pulse Ox 90 L 11/06/16 07:22 Weight - most recent: 110.767 kg I&O - last 24 hours: Intake & Output 11/06/16 11/06/16 11/06/16 06:59 14:59 22:59 Intake Total 500 200 Balance 500 200 Lab Results last 24 hrs: Laboratory Results - last 24 hr 11/05/16 11/06/16 11/06/16 Range/Units 21:26 06:24 11:10 POC Glucose 148 H 126 H 207 H (74-106) mg/dL 11/06/16 11/06/16 Range/Units 16:59 19:38 POC Glucose 120 H 179 H (74-106) mg/dL [place] Results last 24 hrs: Microbiology 11/03/16 20:15 Aerobic Blood Culture - Preliminary Blood - Venous NO GROWTH AFTER 3 DAYS Anaerobic Blood Culture - Final Med Orders - Current: Current Medications Acetaminophen (Tylenol) 650 mg PO Q4H PRN PRN Reason: Pain/Fever Last Admin: 11/05/16 08:27 Dose: 650 mg Acetaminophen/Hydrocodone Bitart ([place] 325-5 Mg) 1 tab PO Q6H PRN PRN Reason: MODERATE PAIN (4-6 OF 10) Last Admin: 11/03/16 06:41 Dose: 1 tab Acetaminophen/Hydrocodone Bitart ([place] 325-5 Mg) 2 tab PO Q6H PRN PRN Reason: SEVERE PAIN (7-10 OF 10) Last Admin: 11/06/16 18:29 Dose: 2 tab Atorvastatin Calcium (Lipitor) 10 mg PO BEDTIME [facility] Last Admin: 11/06/16 19:42 Dose: 10 mg Bisacodyl (Dulcolax) 5 mg PO DAILY PRN PRN Reason: CONSTIPATION Calcitonin [place] (Miacalcin Nasal [place]) 0 ml OJ DAILY [facility] Last Admin: 11/06/16 07:54 Dose: 1 spray Calcium Citrate (Calcium Citrate + D) 1 tab PO BIDMEALS [facility] Last Admin: 11/06/16 17:01 Dose: 1 tab Ceftriaxone Sodium (Rocephin) 2 gm IV BEDTIME [facility] Last Admin: 11/06/16 19:44 Dose: 2 gm Cholecalciferol (Vitamin D3) 2,000 units PO DAILY [facility] Last Admin: 11/06/16 07:47 Dose: 2,000 units Clonazepam (Klonopin) 1 mg PO BID@0800,1600 [facility] Last Admin: 11/06/16 07:45 Dose: 1 mg Fish Oil (Fish Oil) 1 gm PO BID [facility] Last Admin: 11/06/16 19:41 Dose: 1 gm Furosemide (Lasix) 20 mg PO BIDDIURETIC [facility] Last Admin: 11/06/16 17:01 Dose: 20 mg Heparin Sodium (Porcine) (Heparin Lock Flush 100 Units/Ml) 300 unit IVPUSH ASDIRECTED PRN PRN Reason: Keep Vein Open Last Admin: 11/06/16 12:26 Dose: 300 unit Heparin Sodium (Porcine) (Heparin Lock Flush 100 Units/Ml) 300 unit IVPUSH Q12H [facility] Last Admin: 11/06/16 19:44 Dose: 300 unit Sodium Chloride (Normal Saline) 100 mls @ 150 mls/hr IV ASDIRECTED [facility] Last Admin: 11/06/16 07:44 Dose: 150 mls/hr Vancomycin HCl 1.5 gm/ Sodium (Chloride) 250 mls @ 167 mls/hr IV BID@0730,1930 [facility] Last Admin: 11/06/16 19:41 Dose: 167 mls/hr Insulin Aspart (Novolog) 4 unit SUBCUT TIDMEALS [facility] Last Admin: 11/06/16 17:03 Dose: 4 units Insulin Detemir (Levemir) 12 unit SUBCUT DAILY [facility] Last Admin: 11/06/16 07:52 Dose: 12 units Lactobacillus Rhamnosus (Culturelle) 1 cap PO TID [facility] Last Admin: 11/06/16 19:41 Dose: 1 cap Lactulose (Cephulac) 20 gm PO DAILY [facility] Last Admin: 11/06/16 07:44 Dose: 20 gm Lorazepam (Ativan) 2 mg IV Q2H PRN PRN Reason: Agitation Last Admin: 11/06/16 20:51 Dose: 2 mg Losartan Potassium (Cozaar) 100 mg PO DAILY [facility] Last Admin: 11/06/16 07:49 Dose: 100 mg Metoprolol Succinate (Toprol Xl) 50 mg PO DAILY [facility] Last Admin: 11/06/16 07:48 Dose: 50 mg Multivitamins/Minerals (Thera M Plus) 1 tab PO DAILY [facility] Last Admin: 11/06/16 07:46 Dose: 1 tab Victoza 18mg/3ml 0 each SUBCUT BEDTIME [facility] Last Admin: 10/28/16 19:55 Dose: Not Given Fluvoxamine 100mg (Tab) 2 each PO BEDTIME [facility] Last Admin: 11/06/16 19:42 Dose: 2 each Potassium Chloride (Klor-Con 10) 10 meq PO DAILY [facility] Last Admin: 11/06/16 07:49 Dose: 10 meq Risperidone (Risperidal) 2 mg PO BID [facility] Last Admin: 11/06/16 19:43 Dose: 2 mg Sodium Chloride (Saline Flush) 10 ml IV ASDIRECTED PRN PRN Reason: FLUSH PIC Last Admin: 11/06/16 12:26 Dose: 10 ml Spironolactone (Aldactone) 25 mg PO DAILY [facility] Last Admin: 11/06/16 07:49 Dose: 25 mg Tamsulosin HCl (Flomax) 0.4 mg PO DAILY [facility] Last Admin: 11/06/16 07:49 Dose: 0.4 mg Vancomycin HCl (Pharmacy To Dose - Vancomycin) 1 dose .XX ASDIRECTED [facility] Warfarin Sodium (Coumadin) 5 mg PO DAILY [facility] Last Admin: 11/06/16 07:49 Dose: 5 mg Discontinued Medications Acetaminophen (Tylenol) 650 mg PO Q4H PRN PRN Reason: MILD PAIN OR FEVER Atorvastatin Calcium (Lipitor) 10 mg PO BEDTIME [facility] Bisacodyl (Dulcolax) 5 mg PO DAILY PRN PRN Reason: Constipation Calcitonin [place] (Miacalcin Nasal [place]) ml OJ DAILY [facility] Clonazepam (Klonopin) 1 mg PO DAILY@1100 [facility] Last Admin: 11/02/16 11:52 Dose: Not Given Clonazepam (Klonopin) 2 mg PO BID@0800,1600 [facility] Last Admin: 11/04/16 08:35 Dose: Not Given Enoxaparin Sodium (Lovenox) 120 mg SUBCUT BID [facility] Stop: 10/30/16 20:01 Last Admin: 10/30/16 20:03 Dose: 120 mg Furosemide (Lasix) 20 mg PO BID [facility] Haloperidol Lactate (Haldol) 5 mg IVPUSH Q30M PRN PRN Reason: Agitation Last Admin: 11/02/16 06:18 Dose: 5 mg Haloperidol Lactate (Haldol) 5 mg IVPUSH Q6H [facility] Last Admin: 11/03/16 17:45 Dose: Not Given Heparin Sodium (Porcine) (Heparin Lock Flush 100 Units/Ml) 300 unit IVPUSH Q12H [facility] Last Admin: 10/26/16 15:26 Dose: Not Given Vancomycin HCl 1.75 gm/ Sodium (Chloride) 250 mls @ 165 mls/hr IV ONETIME ONE Stop: 10/26/16 17:30 Last Admin: 10/26/16 16:06 Dose: 143 mls/hr Vancomycin HCl 1.75 gm/ Sodium (Chloride) 250 mls @ 142 mls/hr IV Q12H [facility] Last Admin: 11/05/16 08:12 Dose: 142 mls/hr Sodium Chloride (Normal Saline) 500 mls @ 500 mls/hr IV ONETIME ONE Stop: 11/03/16 19:42 Last Admin: 11/03/16 18:53 Dose: 500 mls/hr Sodium Chloride (Normal Saline) 500 mls @ 250 mls/hr IV ONETIME ONE Stop: 11/03/16 21:41 Last Admin: 11/03/16 19:53 Dose: 250 mls/hr Insulin Detemir (Levemir) 12 unit SUBCUT DAILY [facility] Stop: 10/27/16 16:50 Lorazepam (Ativan) 1 mg IVPUSH Q2H PRN PRN Reason: Agitation Last Admin: 10/30/16 06:17 Dose: 1 mg Metoprolol Succinate (Toprol Xl) 50 mg PO DAILY [facility] Fluvoxamine 100mg (Tab) 2 each PO BEDTIME [facility] Non-Formulary Medication (Calcium Citrate/Vitamin D3 [Calcium Citrate - Vit D Caplet]) 1 each PO BIDMEALS [facility] Non-Formulary Medication (Clonazepam [Klonopin]) 1 mg PO DAILY [facility] Non-Formulary Medication (Liraglutide [Victoza]) 0.6 mg SUBCUT BEDTIME [facility] Non-Formulary Medication (Losartan [Cozaar]) 100 mg PO DAILY [facility] Non-Formulary Medication (Multivitamin [Daily Doc]) 1 each PO DAILY [facility] Non-Formulary Medication ([place]-3/Dha/Epa/Fish Oil [[place] 3 500 Softgel]) 1, 000 mg PO BID [facility] Non-Formulary Medication (Potassium Chloride [Potassium Chloride]) 10 meq PO DAILY [facility] Non-Formulary Medication (Fluvoxamine Maleate [Fluvoxamine Maleate Er]) 200 mg PO BEDTIME [facility] Last Admin: 10/27/16 10:55 Dose: Not Given Non-Formulary Medication (Risperidone [Risperdal]) 2 mg PO BEDTIME [facility] Fluvoxamine 100mg (TabPtom) 2 each PO BEDTIME [facility] Last Admin: 10/28/16 19:54 Dose: 2 each Risperidone (Risperidal) 2 mg PO BEDTIME [facility] Last Admin: 10/30/16 20:00 Dose: 2 mg Spironolactone (Aldactone) 25 mg PO DAILY [facility] Warfarin Sodium (Coumadin) 2.5 mg PO DAILY [facility] - Exam Physical Findings Comments:: General: He is indeed lethargic with eyes partially closed, not much verbal response VS: OK Heart sounds: Normal and regular Lungs: Clear - Problem List Review Problem List Initiated/Reviewed/Updated: Yes - My Orders Last 24 Hours: My Active Orders 11/06/16 09:27 Swallowing Function w Video [CR] Routine 11/08/16 07:00 CREATININE W/GFR [CHEM] Q7D VANCOMYCIN TROUGH [CHEM] MOTH 11/12/16 07:00 C-REACTIVE PROTEIN [CHEM] Q7D CBC WITH AUTO DIFF [HEME] Q7D COMPREHENSIVE METABOLIC PN,CMP [CHEM] Q7D INR,PT,PROTHROMBIN TIME [COAG] Q7D SEDIMENTATION RATE AUTO [HEME] Q7D VANCOMYCIN TROUGH [CHEM] 11/15/16 07:00 CREATININE W/GFR [CHEM] Q7D VANCOMYCIN TROUGH [CHEM] 11/19/16 07:00 C-REACTIVE PROTEIN [CHEM] Q7D CBC WITH AUTO DIFF [HEME] Q7D COMPREHENSIVE METABOLIC PN,CMP [CHEM] Q7D INR,PT,PROTHROMBIN TIME [COAG] Q7D SEDIMENTATION RATE AUTO [HEME] Q7D VANCOMYCIN TROUGH [CHEM] 11/22/16 07:00 CREATININE W/GFR [CHEM] Q7D VANCOMYCIN TROUGH [CHEM] 11/26/16 07:00 C-REACTIVE PROTEIN [CHEM] Q7D CBC WITH AUTO DIFF [HEME] Q7D COMPREHENSIVE METABOLIC PN,CMP [CHEM] Q7D INR,PT,PROTHROMBIN TIME [COAG] Q7D SEDIMENTATION RATE AUTO [HEME] Q7D VANCOMYCIN TROUGH [CHEM] 11/29/16 07:00 CREATININE W/GFR [CHEM] Q7D - Assessment Assessment:: -Agitation, now overly sedated -Delirium and possibly mild dementia -Morbid obesity and recent spinal fusion for unstable spinal fracture -Spinal wound was infected, now stapled again after debridement and washout surgery -Getting IV antibiotic 6 weeks - Plan Plan:: -Hold Klonopin completely -Continue Haldol p.r.n. agitation only
[2016-11-07] MEDS: Lactulose Soln 10 GM/15 ML 30 ML UD Cup PO SCH (08:29)
[2016-11-07] MEDS: Losartan 50 MG Tab PO SCH (08:29)
[2016-11-07] MEDS: Lactobacillus Rhamnosus GG (Probiotic) Cap PO SCH ×3 (08:29→19:52)
[2016-11-07] MEDS: Furosemide 20 MG Tab PO SCH ×3 (08:30→15:42)
[2016-11-07] MEDS: Metoprolol Succinate 50 MG Tab.ER PO SCH (08:30)
[2016-11-07] MEDS: Spironolactone 25 MG Tab PO SCH (08:30)
[2016-11-07] MEDS: Potassium Chloride 10 MEQ Tab.ER PO SCH (08:30)
[2016-11-07] MEDS: risperiDONE 1 MG Tab PO SCH ×2 (08:30→19:53)
[2016-11-07] MEDS: Fish Oil/Omega-3 Fatty Acids 1 Gm Cap PO SCH ×2 (08:30→19:52)
[2016-11-07] MEDS: Tamsulosin 0.4 MG Cap.ER PO SCH (08:30)
[2016-11-07] MEDS: Warfarin 5 MG Tab PO SCH (08:30)
[2016-11-07] MEDS: Calcium Citrate/Vitamin D3 315 MG-250 Unit Tab PO SCH ×2 (08:30→17:31)
[2016-11-07] MEDS: Multivitamins with Iron/Calcium/Folic Acid/Minerals Tab PO SCH (08:30)
[2016-11-07] MEDS: Cholecalciferol (Vitamin D3) 1,000 Unit Tab PO SCH (08:30)
[2016-11-07] MEDS: Heparin Sodium 100 Units/ML 3 ML Syringe IVPUSH SCH ×2 (08:31→21:46)
[2016-11-07] MEDS: CALCITONIN NAS SCH (08:32)
[2016-11-07] MEDS: Insulin Aspart 100 Units/ML 3 ML Pen SUBCUT SCH ×3 (08:32→17:31)
[2016-11-07] MEDS: Insulin Detemir 100 Units/ML 3 ML Pen SUBCUT SCH (08:32)
[2016-11-07] MEDS: LORazepam 2 MG/ML MDV IV PRN ×3 (10:07→21:02)
[2016-11-07] MEDS: Acetaminophen/HYDROcodone 325-5 MG Tab PO PRN ×2 (10:10→18:35)
[2016-11-07] MEDS: atorvaSTATin 10 MG Tab PO SCH (19:52)
[2016-11-07] MEDS: FLUVOXAMINE 100 MG PO SCH (19:53)
[2016-11-07] MEDS: cefTRIAXone 2 GM Vial IV SCH (20:00)
[2016-11-08] MEDS: Losartan 50 MG Tab PO SCH (07:57)
[2016-11-08] MEDS: Lactobacillus Rhamnosus GG (Probiotic) Cap PO SCH ×3 (07:57→20:28)
[2016-11-08] MEDS: Multivitamins with Iron/Calcium/Folic Acid/Minerals Tab PO SCH (07:58)
[2016-11-08] MEDS: Calcium Citrate/Vitamin D3 315 MG-250 Unit Tab PO SCH ×2 (07:58→17:36)
[2016-11-08] MEDS: Cholecalciferol (Vitamin D3) 1,000 Unit Tab PO SCH (07:58)
[2016-11-08] MEDS: Warfarin 5 MG Tab PO SCH (07:59)
[2016-11-08] MEDS: Furosemide 20 MG Tab PO SCH ×2 (07:59→15:38)
[2016-11-08] MEDS: risperiDONE 1 MG Tab PO SCH ×2 (07:59→20:36)
[2016-11-08] MEDS: Metoprolol Succinate 50 MG Tab.ER PO SCH (08:00)
[2016-11-08] MEDS: Fish Oil/Omega-3 Fatty Acids 1 Gm Cap PO SCH ×2 (08:00→20:30)
[2016-11-08] MEDS: Tamsulosin 0.4 MG Cap.ER PO SCH (08:00)
[2016-11-08] MEDS: Spironolactone 25 MG Tab PO SCH (08:00)
[2016-11-08] MEDS: Potassium Chloride 10 MEQ Tab.ER PO SCH (08:01)
[2016-11-08] MEDS: Lactulose Soln 10 GM/15 ML 30 ML UD Cup PO SCH (08:01)
[2016-11-08] MEDS: Insulin Detemir 100 Units/ML 3 ML Pen SUBCUT SCH (08:03)
[2016-11-08] MEDS: CALCITONIN NAS SCH (08:04)
[2016-11-08] MEDS: Insulin Aspart 100 Units/ML 3 ML Pen SUBCUT SCH ×3 (08:05→17:37)
[2016-11-08] MEDS: Acetaminophen/HYDROcodone 325-5 MG Tab PO PRN ×2 (08:39→15:38)
[2016-11-08] MEDS: Heparin Sodium 100 Units/ML 3 ML Syringe IVPUSH SCH ×2 (09:19→22:29)
[2016-11-08] MEDS: cefTRIAXone 2 GM Vial IV SCH (20:07)
[2016-11-08] MEDS: atorvaSTATin 10 MG Tab PO SCH (20:32)
[2016-11-08] MEDS: FLUVOXAMINE 100 MG PO SCH (20:33)
[2016-11-09] MEDS: Sodium Chloride 0.9% 10 ML Syringe IV PRN ×6 (07:10→20:30)
[2016-11-09] MEDS: Acetaminophen/HYDROcodone 325-5 MG Tab PO PRN ×3 (07:10→14:45)
[2016-11-09] MEDS: Insulin Detemir 100 Units/ML 3 ML Pen SUBCUT SCH (07:39)
[2016-11-09] MEDS: Insulin Aspart 100 Units/ML 3 ML Pen SUBCUT SCH ×3 (07:40→17:33)
[2016-11-09] MEDS: CALCITONIN NAS SCH (07:41)
[2016-11-09] MEDS: Losartan 50 MG Tab PO SCH (07:43)
[2016-11-09] MEDS: Lactulose Soln 10 GM/15 ML 30 ML UD Cup PO SCH ×2 (07:43→07:56)
[2016-11-09] MEDS: risperiDONE 1 MG Tab PO SCH ×2 (07:43→20:21)
[2016-11-09] MEDS: Fish Oil/Omega-3 Fatty Acids 1 Gm Cap PO SCH ×2 (07:43→20:21)
[2016-11-09] MEDS: Tamsulosin 0.4 MG Cap.ER PO SCH (07:43)
[2016-11-09] MEDS: Spironolactone 25 MG Tab PO SCH (07:44)
[2016-11-09] MEDS: Metoprolol Succinate 50 MG Tab.ER PO SCH (07:44)
[2016-11-09] MEDS: Cholecalciferol (Vitamin D3) 1,000 Unit Tab PO SCH (07:44)
[2016-11-09] MEDS: Potassium Chloride 10 MEQ Tab.ER PO SCH (07:44)
[2016-11-09] MEDS: Calcium Citrate/Vitamin D3 315 MG-250 Unit Tab PO SCH ×2 (07:44→17:06)
[2016-11-09] MEDS: Warfarin 5 MG Tab PO SCH (07:45)
[2016-11-09] MEDS: Multivitamins with Iron/Calcium/Folic Acid/Minerals Tab PO SCH (07:45)
[2016-11-09] MEDS: Furosemide 20 MG Tab PO SCH ×3 (07:45→16:05)
[2016-11-09] MEDS: Sodium Chloride 0.9% 100 ML IV SCH ×2 (07:45→18:33)
[2016-11-09] MEDS: Lactobacillus Rhamnosus GG (Probiotic) Cap PO SCH ×3 (07:45→20:21)
[2016-11-09] MEDS: Heparin Sodium 100 Units/ML 3 ML Syringe IVPUSH SCH ×2 (08:57→20:30)
[2016-11-09] MEDS: LORazepam 2 MG/ML MDV IV PRN (12:42)
[2016-11-09] MEDS: Heparin Sodium 100 Units/ML 3 ML Syringe IVPUSH PRN (12:43)
[2016-11-09] MEDS: FLUVOXAMINE 100 MG PO SCH (20:17)
[2016-11-09] MEDS: atorvaSTATin 10 MG Tab PO SCH (20:21)
[2016-11-09] MEDS: cefTRIAXone 2 GM Vial IV SCH (20:22)
[2016-11-10] MEDS: Acetaminophen/HYDROcodone 325-5 MG Tab PO PRN ×3 (06:27→19:55)
[2016-11-10] MEDS: Sodium Chloride 0.9% 10 ML Syringe IV PRN ×3 (08:13→15:15)
[2016-11-10] MEDS: Sodium Chloride 0.9% 100 ML IV SCH (08:13)
[2016-11-10] MEDS: Losartan 50 MG Tab PO SCH (08:17)
[2016-11-10] MEDS: risperiDONE 1 MG Tab PO SCH ×2 (08:18→19:54)
[2016-11-10] MEDS: Furosemide 20 MG Tab PO SCH ×2 (08:18→15:01)
[2016-11-10] MEDS: Metoprolol Succinate 50 MG Tab.ER PO SCH (08:18)
[2016-11-10] MEDS: Lactobacillus Rhamnosus GG (Probiotic) Cap PO SCH ×3 (08:18→19:56)
[2016-11-10] MEDS: Fish Oil/Omega-3 Fatty Acids 1 Gm Cap PO SCH ×2 (08:18→19:54)
[2016-11-10] MEDS: Warfarin 5 MG Tab PO SCH (08:18)
[2016-11-10] MEDS: Cholecalciferol (Vitamin D3) 1,000 Unit Tab PO SCH (08:18)
[2016-11-10] MEDS: Tamsulosin 0.4 MG Cap.ER PO SCH (08:19)
[2016-11-10] MEDS: Spironolactone 25 MG Tab PO SCH (08:19)
[2016-11-10] MEDS: Multivitamins with Iron/Calcium/Folic Acid/Minerals Tab PO SCH (08:19)
[2016-11-10] MEDS: CALCITONIN NAS SCH (08:19)
[2016-11-10] MEDS: Potassium Chloride 10 MEQ Tab.ER PO SCH (08:19)
[2016-11-10] MEDS: Calcium Citrate/Vitamin D3 315 MG-250 Unit Tab PO SCH ×2 (08:19→19:56)
[2016-11-10] MEDS: Insulin Detemir 100 Units/ML 3 ML Pen SUBCUT SCH (08:20)
[2016-11-10] MEDS: Insulin Aspart 100 Units/ML 3 ML Pen SUBCUT SCH ×3 (08:20→19:56)
[2016-11-10] MEDS: Lactulose Soln 10 GM/15 ML 30 ML UD Cup PO SCH (08:21)
[2016-11-10] MEDS: Heparin Sodium 100 Units/ML 3 ML Syringe IVPUSH SCH ×2 (09:53→21:31)
[2016-11-10] MEDS: LORazepam 2 MG/ML MDV IV PRN ×2 (15:15→20:47)
[2016-11-10] MEDS: Heparin Sodium 100 Units/ML 3 ML Syringe IVPUSH PRN (15:16)
[2016-11-10] MEDS: cefTRIAXone 2 GM Vial IV SCH (19:46)
[2016-11-10] MEDS: atorvaSTATin 10 MG Tab PO SCH (19:55)
[2016-11-10] MEDS: FLUVOXAMINE 100 MG PO SCH (19:59)
[2016-11-11] MEDS: Acetaminophen/HYDROcodone 325-5 MG Tab PO PRN ×3 (05:35→19:45)
[2016-11-11] MEDS: LORazepam 2 MG/ML MDV IV PRN ×3 (05:35→20:13)
[2016-11-11] MEDS: Sodium Chloride 0.9% 10 ML Syringe IV PRN ×4 (07:19→21:23)
[2016-11-11] MEDS: Sodium Chloride 0.9% 100 ML IV SCH (07:19)
[2016-11-11] MEDS: Heparin Sodium 100 Units/ML 3 ML Syringe IVPUSH SCH ×2 (09:04→21:23)
[2016-11-11] MEDS: CALCITONIN NAS SCH (10:29)
[2016-11-11] MEDS: Insulin Detemir 100 Units/ML 3 ML Pen SUBCUT SCH (10:29)
[2016-11-11] MEDS: Insulin Aspart 100 Units/ML 3 ML Pen SUBCUT SCH ×3 (10:30→17:29)
[2016-11-11] MEDS: Warfarin 5 MG Tab PO SCH (10:31)
[2016-11-11] MEDS: Lactulose Soln 10 GM/15 ML 30 ML UD Cup PO SCH (10:31)
[2016-11-11] MEDS: Spironolactone 25 MG Tab PO SCH (10:31)
[2016-11-11] MEDS: Potassium Chloride 10 MEQ Tab.ER PO SCH (10:31)
[2016-11-11] MEDS: Furosemide 20 MG Tab PO SCH ×2 (10:31→15:11)
[2016-11-11] MEDS: Losartan 50 MG Tab PO SCH (10:31)
[2016-11-11] MEDS: Fish Oil/Omega-3 Fatty Acids 1 Gm Cap PO SCH ×3 (10:31→19:42)
[2016-11-11] MEDS: Lactobacillus Rhamnosus GG (Probiotic) Cap PO SCH ×3 (10:32→19:43)
[2016-11-11] MEDS: Tamsulosin 0.4 MG Cap.ER PO SCH (10:32)
[2016-11-11] MEDS: Metoprolol Succinate 50 MG Tab.ER PO SCH (10:32)
[2016-11-11] MEDS: Cholecalciferol (Vitamin D3) 1,000 Unit Tab PO SCH (10:32)
[2016-11-11] MEDS: risperiDONE 1 MG Tab PO SCH ×2 (10:32→19:42)
[2016-11-11] MEDS: Multivitamins with Iron/Calcium/Folic Acid/Minerals Tab PO SCH (10:32)
[2016-11-11] MEDS: Calcium Citrate/Vitamin D3 315 MG-250 Unit Tab PO SCH ×2 (10:33→17:29)
[2016-11-11] MEDS: Heparin Sodium 100 Units/ML 3 ML Syringe IVPUSH PRN (15:11)
[2016-11-11] MEDS: cefTRIAXone 2 GM Vial IV SCH (19:25)
[2016-11-11] MEDS: FLUVOXAMINE 100 MG PO SCH (19:41)
[2016-11-11] MEDS: atorvaSTATin 10 MG Tab PO SCH (19:42)
[2016-11-12] MEDS: LORazepam 2 MG/ML MDV IV PRN ×5 (04:04→21:27)
[2016-11-12] MEDS: Acetaminophen/HYDROcodone 325-5 MG Tab PO PRN ×3 (04:05→17:02)
[2016-11-12 07:26] LABS: CHLORIDE,CL 107 mmol/L (98-107); SODIUM,NA 140 mmol/L (136-145)
[2016-11-12] MEDS ORDERED: Phytonadione ORAL 2.5mg/2.5ml Soln Simple Syrup U/D PO ONE ×2 (08:08→17:51)
[2016-11-12] MEDS: Metoprolol Succinate 50 MG Tab.ER PO SCH (08:23)
[2016-11-12] MEDS: Cholecalciferol (Vitamin D3) 1,000 Unit Tab PO SCH (08:24)
[2016-11-12] MEDS: Lactobacillus Rhamnosus GG (Probiotic) Cap PO SCH ×3 (08:24→19:19)
[2016-11-12] MEDS: Calcium Citrate/Vitamin D3 315 MG-250 Unit Tab PO SCH ×2 (08:24→17:02)
[2016-11-12] MEDS: risperiDONE 1 MG Tab PO SCH ×2 (08:25→19:19)
[2016-11-12] MEDS: Tamsulosin 0.4 MG Cap.ER PO SCH (08:25)
[2016-11-12] MEDS: Fish Oil/Omega-3 Fatty Acids 1 Gm Cap PO SCH ×2 (08:25→19:26)
[2016-11-12] MEDS: Multivitamins with Iron/Calcium/Folic Acid/Minerals Tab PO SCH (08:25)
[2016-11-12] MEDS: Furosemide 20 MG Tab PO SCH ×2 (08:26→15:34)
[2016-11-12] MEDS: Spironolactone 25 MG Tab PO SCH (08:26)
[2016-11-12] MEDS: Losartan 50 MG Tab PO SCH (08:26)
[2016-11-12] MEDS: Potassium Chloride 10 MEQ Tab.ER PO SCH (08:27)
[2016-11-12] MEDS: Warfarin 5 MG Tab PO SCH (08:28)
[2016-11-12] MEDS: Lactulose Soln 10 GM/15 ML 30 ML UD Cup PO SCH (08:28)
[2016-11-12] MEDS: Insulin Detemir 100 Units/ML 3 ML Pen SUBCUT SCH (08:30)
[2016-11-12] MEDS: CALCITONIN NAS SCH (08:32)
[2016-11-12] MEDS: Insulin Aspart 100 Units/ML 3 ML Pen SUBCUT SCH ×3 (08:33→18:04)
[2016-11-12] MEDS: Sodium Chloride 0.9% 10 ML Syringe IV PRN (10:10)
[2016-11-12] MEDS: Heparin Sodium 100 Units/ML 3 ML Syringe IVPUSH SCH ×2 (10:10→21:47)
[2016-11-12] MEDS: atorvaSTATin 10 MG Tab PO SCH (19:19)
[2016-11-12] MEDS: cefTRIAXone 2 GM Vial IV SCH (19:21)
[2016-11-12] MEDS: FLUVOXAMINE 100 MG PO SCH (19:28)
[2016-11-13] MEDS: LORazepam 2 MG/ML MDV IV PRN ×6 (00:04→22:57)
[2016-11-13] MEDS: Heparin Sodium 100 Units/ML 3 ML Syringe IVPUSH PRN (00:05)
[2016-11-13] MEDS: Sodium Chloride 0.9% 10 ML Syringe IV PRN ×2 (00:05→09:36)
[2016-11-13] MEDS: Acetaminophen/HYDROcodone 325-5 MG Tab PO PRN ×3 (00:18→15:19)
[2016-11-13] MEDS: Sodium Chloride 0.9% 100 ML IV SCH (07:54)
[2016-11-13] MEDS: CALCITONIN NAS SCH (07:56)
[2016-11-13] MEDS: Metoprolol Succinate 50 MG Tab.ER PO SCH (07:57)
[2016-11-13] MEDS: Losartan 50 MG Tab PO SCH (07:58)
[2016-11-13] MEDS: Fish Oil/Omega-3 Fatty Acids 1 Gm Cap PO SCH ×2 (07:58→20:04)
[2016-11-13] MEDS: Lactobacillus Rhamnosus GG (Probiotic) Cap PO SCH ×3 (07:59→20:04)
[2016-11-13] MEDS: Calcium Citrate/Vitamin D3 315 MG-250 Unit Tab PO SCH ×2 (07:59→20:03)
[2016-11-13] MEDS: Tamsulosin 0.4 MG Cap.ER PO SCH (08:00)
[2016-11-13] MEDS: Multivitamins with Iron/Calcium/Folic Acid/Minerals Tab PO SCH (08:00)
[2016-11-13] MEDS: Cholecalciferol (Vitamin D3) 1,000 Unit Tab PO SCH (08:02)
[2016-11-13] MEDS: Potassium Chloride 10 MEQ Tab.ER PO SCH (08:02)
[2016-11-13] MEDS: risperiDONE 1 MG Tab PO SCH ×2 (08:03→20:04)
[2016-11-13] MEDS: Furosemide 20 MG Tab PO SCH ×2 (08:04→15:19)
[2016-11-13] MEDS: Lactulose Soln 10 GM/15 ML 30 ML UD Cup PO SCH (08:05)
[2016-11-13] MEDS: Spironolactone 25 MG Tab PO SCH (08:05)
[2016-11-13] MEDS: Insulin Detemir 100 Units/ML 3 ML Pen SUBCUT SCH (08:06)
[2016-11-13] MEDS: Insulin Aspart 100 Units/ML 3 ML Pen SUBCUT SCH ×3 (08:09→20:05)
[2016-11-13] MEDS: Heparin Sodium 100 Units/ML 3 ML Syringe IVPUSH SCH ×2 (09:36→22:00)
[2016-11-13] MEDS ORDERED: risperiDONE 1 MG Tab PO ONE (16:03)
[2016-11-13] MEDS: cefTRIAXone 2 GM Vial IV SCH (20:02)
[2016-11-13] MEDS: atorvaSTATin 10 MG Tab PO SCH (20:04)
[2016-11-13] MEDS: FLUVOXAMINE 100 MG PO SCH (20:06)
[2016-11-14] MEDS: Acetaminophen/HYDROcodone 325-5 MG Tab PO PRN ×3 (05:29→20:23)
[2016-11-14] MEDS: LORazepam 2 MG/ML MDV IV PRN ×3 (05:35→20:12)
[2016-11-14] MEDS: Calcium Citrate/Vitamin D3 315 MG-250 Unit Tab PO SCH ×2 (08:30→17:32)
[2016-11-14] MEDS: Multivitamins with Iron/Calcium/Folic Acid/Minerals Tab PO SCH (08:30)
[2016-11-14] MEDS: Lactobacillus Rhamnosus GG (Probiotic) Cap PO SCH ×3 (08:30→20:22)
[2016-11-14] MEDS: Cholecalciferol (Vitamin D3) 1,000 Unit Tab PO SCH (08:31)
[2016-11-14] MEDS: Lactulose Soln 10 GM/15 ML 30 ML UD Cup PO SCH (08:31)
[2016-11-14] MEDS: Metoprolol Succinate 50 MG Tab.ER PO SCH (08:32)
[2016-11-14] MEDS: Spironolactone 25 MG Tab PO SCH (08:32)
[2016-11-14] MEDS: risperiDONE 1 MG Tab PO SCH ×2 (08:33→20:22)
[2016-11-14] MEDS: Tamsulosin 0.4 MG Cap.ER PO SCH (08:34)
[2016-11-14] MEDS: Fish Oil/Omega-3 Fatty Acids 1 Gm Cap PO SCH ×2 (08:34→20:24)
[2016-11-14] MEDS: Furosemide 20 MG Tab PO SCH ×2 (08:34→17:32)
[2016-11-14] MEDS: Losartan 50 MG Tab PO SCH (08:35)
[2016-11-14] MEDS: Potassium Chloride 10 MEQ Tab.ER PO SCH (08:36)
[2016-11-14] MEDS: Insulin Detemir 100 Units/ML 3 ML Pen SUBCUT SCH (08:37)
[2016-11-14] MEDS: Insulin Aspart 100 Units/ML 3 ML Pen SUBCUT SCH ×3 (08:38→17:34)
[2016-11-14] MEDS: CALCITONIN NAS SCH (08:40)
[2016-11-14] MEDS ORDERED: Warfarin 2.5 MG Tab PO ONE (10:00)
[2016-11-14] MEDS: Heparin Sodium 100 Units/ML 3 ML Syringe IVPUSH SCH ×2 (10:12→20:21)
[2016-11-14] MEDS: Sodium Chloride 0.9% 10 ML Syringe IV PRN ×2 (10:12→12:59)
[2016-11-14] MEDS: cefTRIAXone 2 GM Vial IV SCH (20:11)
[2016-11-14] MEDS: Sodium Chloride 0.9% 100 ML IV SCH (20:11)
[2016-11-14] MEDS: FLUVOXAMINE 100 MG PO SCH (20:24)
[2016-11-14] MEDS: atorvaSTATin 10 MG Tab PO SCH (20:26)
[2016-11-15] MEDS: Acetaminophen/HYDROcodone 325-5 MG Tab PO PRN ×2 (05:18→16:37)
[2016-11-15] MEDS: LORazepam 2 MG/ML MDV IV PRN ×2 (05:18→18:10)
[2016-11-15] MEDS: Calcium Citrate/Vitamin D3 315 MG-250 Unit Tab PO SCH ×2 (09:04→17:23)
[2016-11-15] MEDS: Spironolactone 25 MG Tab PO SCH ×2 (09:04→16:41)
[2016-11-15] MEDS: Lactulose Soln 10 GM/15 ML 30 ML UD Cup PO SCH (09:05)
[2016-11-15] MEDS: Fish Oil/Omega-3 Fatty Acids 1 Gm Cap PO SCH ×2 (09:05→19:51)
[2016-11-15] MEDS: Warfarin 5 MG Tab PO SCH (09:05)
[2016-11-15] MEDS: Lactobacillus Rhamnosus GG (Probiotic) Cap PO SCH ×3 (09:05→19:51)
[2016-11-15] MEDS: Losartan 50 MG Tab PO SCH ×2 (09:05→16:38)
[2016-11-15] MEDS: Tamsulosin 0.4 MG Cap.ER PO SCH ×2 (09:06→16:41)
[2016-11-15] MEDS: Furosemide 20 MG Tab PO SCH ×2 (09:06→16:41)
[2016-11-15] MEDS: Potassium Chloride 10 MEQ Tab.ER PO SCH ×2 (09:06→16:38)
[2016-11-15] MEDS: Insulin Detemir 100 Units/ML 3 ML Pen SUBCUT SCH ×2 (09:07→16:43)
[2016-11-15] MEDS: CALCITONIN NAS SCH ×2 (09:07→16:42)
[2016-11-15] MEDS: Insulin Aspart 100 Units/ML 3 ML Pen SUBCUT SCH ×3 (09:07→17:23)
[2016-11-15] MEDS: risperiDONE 1 MG Tab PO SCH ×2 (09:07→19:54)
[2016-11-15] MEDS: Metoprolol Succinate 50 MG Tab.ER PO SCH ×2 (09:08→16:40)
[2016-11-15] MEDS: Heparin Sodium 100 Units/ML 3 ML Syringe IVPUSH SCH ×3 (09:08→20:06)
[2016-11-15] MEDS: Cholecalciferol (Vitamin D3) 1,000 Unit Tab PO SCH (09:08)
[2016-11-15] MEDS: Multivitamins with Iron/Calcium/Folic Acid/Minerals Tab PO SCH (09:08)
[2016-11-15] MEDS ORDERED: Warfarin 5 MG Tab PO ONE (16:00)
[2016-11-15] MEDS: ClonazePAM 0.5 MG Tab PO SCH (16:39)
[2016-11-15] MEDS: Sodium Chloride 0.9% 100 ML IV SCH ×2 (18:06→19:46)
[2016-11-15] MEDS: cefTRIAXone 2 GM Vial IV SCH (19:48)
[2016-11-15] MEDS: atorvaSTATin 10 MG Tab PO SCH (19:51)
[2016-11-15] MEDS: fluvoxaMINE 100 MG Tab PO SCH (19:51)
[2016-11-16] MEDS: Acetaminophen/HYDROcodone 325-5 MG Tab PO PRN ×2 (05:52→15:05)
[2016-11-16] MEDS: Cholecalciferol (Vitamin D3) 1,000 Unit Tab PO SCH (08:01)
[2016-11-16] MEDS: Furosemide 20 MG Tab PO SCH ×2 (08:01→15:04)
[2016-11-16] MEDS: Multivitamins with Iron/Calcium/Folic Acid/Minerals Tab PO SCH (08:01)
[2016-11-16] MEDS: Fish Oil/Omega-3 Fatty Acids 1 Gm Cap PO SCH ×2 (08:01→20:47)
[2016-11-16] MEDS: Calcium Citrate/Vitamin D3 315 MG-250 Unit Tab PO SCH ×2 (08:02→20:47)
[2016-11-16] MEDS: ClonazePAM 0.5 MG Tab PO SCH ×2 (08:03→15:04)
[2016-11-16] MEDS: Lactobacillus Rhamnosus GG (Probiotic) Cap PO SCH ×3 (08:03→20:48)
[2016-11-16] MEDS: Tamsulosin 0.4 MG Cap.ER PO SCH (08:03)
[2016-11-16] MEDS: risperiDONE 1 MG Tab PO SCH ×2 (08:04→20:47)
[2016-11-16] MEDS: Warfarin 5 MG Tab PO SCH (08:04)
[2016-11-16] MEDS: Losartan 50 MG Tab PO SCH (08:05)
[2016-11-16] MEDS: Spironolactone 25 MG Tab PO SCH (08:06)
[2016-11-16] MEDS: Potassium Chloride 10 MEQ Tab.ER PO SCH (08:06)
[2016-11-16] MEDS: Metoprolol Succinate 50 MG Tab.ER PO SCH (08:06)
[2016-11-16] MEDS: Lactulose Soln 10 GM/15 ML 30 ML UD Cup PO SCH (08:07)
[2016-11-16] MEDS: Insulin Detemir 100 Units/ML 3 ML Pen SUBCUT SCH (08:10)
[2016-11-16] MEDS: CALCITONIN NAS SCH (08:11)
[2016-11-16] MEDS: Insulin Aspart 100 Units/ML 3 ML Pen SUBCUT SCH ×3 (08:12→19:11)
[2016-11-16] MEDS: Sodium Chloride 0.9% 10 ML Syringe IV PRN ×2 (08:20→20:40)
[2016-11-16] MEDS: Heparin Sodium 100 Units/ML 3 ML Syringe IVPUSH SCH ×2 (08:21→20:52)
--- NOTE | 2016-11-16 09:10 | PCM.PN ---
- General Info Date of Service: 11/16/16 Admission Dx/Problem (Free Text): He had been getting Coumadin 5 mg daily because of Hx of DVT, but on 11/12 his INR went up to 13, so he got 2.5 mg of vitamin K, it came down to 9.1 so he got another dose of 2.5 mg of vitamin K, and his INR came to 2.6 so his Coumadin was held again. Now, as expected it is difficult to get into the therapeutic range. He got 7.5 mg, then 10 mg, and today the INR is therapeutic, 2.8, so he will get Coumadin 5 mg today. We will need to continue daily dose adjustment and daily INR until his vitamin K wears off. He went to have his sutures removed yesterday and again the wound is gaping but not as bad as the last time, does not have drainage from it, gaping seems to be mainly from overlapping of the skin edges. He does not have fever. His behavior continues to be a problem, is on Risperdal 3 mg BID, Klonopin 1 mg BID and prn Ativan. - Patient Data Vitals - most recent: Last Vital Signs Temp 37.2 C 11/16/16 05:56 Pulse 78 11/16/16 08:06 Resp 20 11/16/16 05:56 BP 148/85 H 11/16/16 08:06 Pulse Ox 95 11/16/16 05:56 Weight - most recent: 110.767 kg I&O - last 24 hours: Intake & Output 11/15/16 11/16/16 11/16/16 22:59 06:59 14:59 Intake Total 200 180 Balance 200 180 Lab Results last 24 hrs: Laboratory Results - last 24 hr 11/15/16 11/15/16 11/16/16 Range/Units 16:36 20:09 05:56 PT (10.0-12.8) SEC INR (2.0-3.5) POC Glucose 157 H 105 115 H (74-106) mg/dL 11/16/16 Range/Units 08:25 PT 32.1 H (10.0-12.8) SEC INR 2.8 (2.0-3.5) POC Glucose (74-106) mg/dL Med Orders - Current: Current Medications Acetaminophen (Tylenol) 650 mg PO Q4H PRN PRN Reason: Pain/Fever Last Admin: 11/05/16 08:27 Dose: 650 mg Acetaminophen/Hydrocodone Bitart ([place] 325-5 Mg) 1 tab PO Q6H PRN PRN Reason: MODERATE PAIN (4-6 OF 10) Last Admin: 11/09/16 14:45 Dose: 1 tab Acetaminophen/Hydrocodone Bitart ([place] 325-5 Mg) 2 tab PO Q6H PRN PRN Reason: SEVERE PAIN (7-10 OF 10) Last Admin: 11/16/16 05:52 Dose: 2 tab Atorvastatin Calcium (Lipitor) 10 mg PO BEDTIME [facility] Last Admin: 11/15/16 19:51 Dose: 10 mg Bisacodyl (Dulcolax) 5 mg PO DAILY PRN PRN Reason: CONSTIPATION Calcitonin [place] (Miacalcin Nasal [place]) 0 ml OJ DAILY [facility] Last Admin: 11/16/16 08:11 Dose: 1 spray Calcium Citrate (Calcium Citrate + D) 1 tab PO BIDMEALS [facility] Last Admin: 11/16/16 08:02 Dose: 1 tab Ceftriaxone Sodium (Rocephin) 2 gm IV BEDTIME [facility] Last Admin: 11/15/16 19:48 Dose: 2 gm Cholecalciferol (Vitamin D3) 2,000 units PO DAILY [facility] Last Admin: 11/16/16 08:01 Dose: 2,000 units Clonazepam (Klonopin) 1 mg PO BID@0800,1600 [facility] Last Admin: 11/16/16 08:03 Dose: 1 mg Fish Oil (Fish Oil) 1 gm PO BID [facility] Last Admin: 11/16/16 08:01 Dose: 1 gm Fluvoxamine Maleate (Luvox) 200 mg PO BEDTIME [facility] Last Admin: 11/15/16 19:51 Dose: 200 mg Furosemide (Lasix) 20 mg PO BIDDIURETIC [facility] Last Admin: 11/16/16 08:01 Dose: 20 mg Heparin Sodium (Porcine) (Heparin Lock Flush 100 Units/Ml) 300 unit IVPUSH ASDIRECTED PRN PRN Reason: Keep Vein Open Last Admin: 11/13/16 00:05 Dose: 300 unit Heparin Sodium (Porcine) (Heparin Lock Flush 100 Units/Ml) 300 unit IVPUSH Q12H [facility] Last Admin: 11/16/16 08:21 Dose: 300 unit Sodium Chloride (Normal Saline) 100 mls @ 150 mls/hr IV ASDIRECTED [facility] Last Admin: 11/15/16 19:46 Dose: 150 mls/hr Vancomycin HCl 1.25 gm/ Sodium (Chloride) 250 mls @ 167 mls/hr IV BID@0730, 1930 [facility] Last Admin: 11/16/16 08:08 Dose: Not Given Insulin Aspart (Novolog) 4 unit SUBCUT TIDMEALS [facility] Last Admin: 11/16/16 08:12 Dose: Not Given Insulin Detemir (Levemir) 12 unit SUBCUT DAILY [facility] Last Admin: 11/16/16 08:10 Dose: 12 units Lactobacillus Rhamnosus (Culturelle) 1 cap PO TID [facility] Last Admin: 11/16/16 08:03 Dose: 1 cap Lactulose (Cephulac) 20 gm PO DAILY [facility] Last Admin: 11/16/16 08:07 Dose: 20 gm Lorazepam (Ativan) 2 mg IV Q2H PRN PRN Reason: Agitation Last Admin: 11/15/16 18:10 Dose: 2 mg Losartan Potassium (Cozaar) 100 mg PO DAILY [facility] Last Admin: 11/16/16 08:05 Dose: 100 mg Metoprolol Succinate (Toprol Xl) 50 mg PO DAILY [facility] Last Admin: 11/16/16 08:06 Dose: 50 mg Multivitamins/Minerals (Thera M Plus) 1 tab PO DAILY [facility] Last Admin: 11/16/16 08:01 Dose: 1 tab Victoza 18mg/3ml 0 each SUBCUT BEDTIME [facility] Last Admin: 10/28/16 19:55 Dose: Not Given Potassium Chloride (Klor-Con 10) 10 meq PO DAILY [facility] Last Admin: 11/16/16 08:06 Dose: 10 meq Risperidone (Risperidal) 3 mg PO BID [facility] Last Admin: 11/16/16 08:04 Dose: 3 mg Sodium Chloride (Saline Flush) 10 ml IV ASDIRECTED PRN PRN Reason: FLUSH PIC Last Admin: 11/16/16 08:20 Dose: 10 ml Spironolactone (Aldactone) 25 mg PO DAILY [facility] Last Admin: 11/16/16 08:06 Dose: 25 mg Tamsulosin HCl (Flomax) 0.4 mg PO DAILY [facility] Last Admin: 11/16/16 08:03 Dose: 0.4 mg Vancomycin HCl (Pharmacy To Dose - Vancomycin) 1 dose .XX ASDIRECTED [facility] Warfarin Sodium (Coumadin) 5 mg PO DAILY [facility] Last Admin: 11/16/16 08:04 Dose: 5 mg Discontinued Medications Acetaminophen (Tylenol) 650 mg PO Q4H PRN PRN Reason: MILD PAIN OR FEVER Atorvastatin Calcium (Lipitor) 10 mg PO BEDTIME [facility] Bisacodyl (Dulcolax) 5 mg PO DAILY PRN PRN Reason: Constipation Calcitonin [place] (Miacalcin Nasal [place]) ml OJ DAILY [facility] Clonazepam (Klonopin) 1 mg PO DAILY@1100 [facility] Last Admin: 11/02/16 11:52 Dose: Not Given Clonazepam (Klonopin) 2 mg PO BID@0800,1600 [facility] Last Admin: 11/04/16 08:35 Dose: Not Given Enoxaparin Sodium (Lovenox) 120 mg SUBCUT BID [facility] Stop: 10/30/16 20:01 Last Admin: 10/30/16 20:03 Dose: 120 mg Furosemide (Lasix) 20 mg PO BID [facility] Haloperidol Lactate (Haldol) 5 mg IVPUSH Q30M PRN PRN Reason: Agitation Last Admin: 11/02/16 06:18 Dose: 5 mg Haloperidol Lactate (Haldol) 5 mg IVPUSH Q6H [facility] Last Admin: 11/03/16 17:45 Dose: Not Given Heparin Sodium (Porcine) (Heparin Lock Flush 100 Units/Ml) 300 unit IVPUSH Q12H [facility] Last Admin: 10/26/16 15:26 Dose: Not Given Vancomycin HCl 1.75 gm/ Sodium (Chloride) 250 mls @ 165 mls/hr IV ONETIME ONE Stop: 10/26/16 17:30 Last Admin: 10/26/16 16:06 Dose: 143 mls/hr Vancomycin HCl 1.75 gm/ Sodium (Chloride) 250 mls @ 142 mls/hr IV Q12H [facility] Last Admin: 11/05/16 08:12 Dose: 142 mls/hr Sodium Chloride (Normal Saline) 500 mls @ 500 mls/hr IV ONETIME ONE Stop: 11/03/16 19:42 Last Admin: 11/03/16 18:53 Dose: 500 mls/hr Sodium Chloride (Normal Saline) 500 mls @ 250 mls/hr IV ONETIME ONE Stop: 11/03/16 21:41 Last Admin: 11/03/16 19:53 Dose: 250 mls/hr Vancomycin HCl 1.5 gm/ Sodium (Chloride) 250 mls @ 167 mls/hr IV BID@ [facility] Last Admin: 11/08/16 07:28 Dose: 167 mls/hr Vancomycin HCl 1.25 gm/ Sodium (Chloride) 250 mls @ 167 mls/hr IV BID@729, 1929 [facility] Last Admin: 11/11/16 19:31 Dose: 167 mls/hr Insulin Detemir (Levemir) 12 unit SUBCUT DAILY [facility] Stop: 10/27/16 16:50 Lorazepam (Ativan) 1 mg IVPUSH Q2H PRN PRN Reason: Agitation Last Admin: 10/30/16 06:17 Dose: 1 mg Metoprolol Succinate (Toprol Xl) 50 mg PO DAILY [facility] Fluvoxamine 100mg (Tab) 2 each PO BEDTIME [facility] Non-Formulary Medication (Calcium Citrate/Vitamin D3 [Calcium Citrate - Vit D Caplet]) 1 each PO BIDMEALS [facility] Non-Formulary Medication (Clonazepam [Klonopin]) 1 mg PO DAILY [facility] Non-Formulary Medication (Liraglutide [Victoza]) 0.6 mg SUBCUT BEDTIME [facility] Non-Formulary Medication (Losartan [Cozaar]) 100 mg PO DAILY [facility] Non-Formulary Medication (Multivitamin [Daily Doc]) 1 each PO DAILY [facility] Non-Formulary Medication ([place]-3/Dha/Epa/Fish Oil [[place] 3 500 Softgel]) 1, 000 mg PO BID [facility] Non-Formulary Medication (Potassium Chloride [Potassium Chloride]) 10 meq PO DAILY [facility] Non-Formulary Medication (Fluvoxamine Maleate [Fluvoxamine Maleate Er]) 200 mg PO BEDTIME [facility] Last Admin: 10/27/16 10:55 Dose: Not Given Non-Formulary Medication (Risperidone [Risperdal]) 2 mg PO BEDTIME [facility] Fluvoxamine 100mg (TabPtom) 2 each PO BEDTIME [facility] Last Admin: 10/28/16 19:54 Dose: 2 each Fluvoxamine 100mg (Tab) 2 each PO BEDTIME [facility] Last Admin: 11/14/16 20:24 Dose: 2 each Phytonadione (Aquamephyton) 2.5 mg PO ONETIME ONE Stop: 11/12/16 08:09 Last Admin: 11/12/16 08:52 Dose: 2.5 mg Phytonadione ([place]amephy[place]) 2.5 mg PO ONETIME ONE Stop: 11/12/16 17:52 Last Admin: 11/12/16 18:20 Dose: 2.5 mg Risperidone (Risperidal) 2 mg PO BEDTIME [facility] Last Admin: 10/30/16 20:00 Dose: 2 mg Risperidone (Risperidal) 2 mg PO BID [facility] Last Admin: 11/13/16 08:03 Dose: 2 mg Risperidone (Risperidal) 2 mg PO NOW ONE Stop: 11/13/16 16:04 Last Admin: 11/13/16 16:18 Dose: 2 mg Risperidone (Risperidal) 4 mg PO BID [facility] Last Admin: 11/15/16 09:07 Dose: Not Given Spironolactone (Aldactone) 25 mg PO DAILY [facility] Warfarin Sodium (Coumadin) 2.5 mg PO DAILY [facility] Warfarin Sodium (Coumadin) 7.5 mg PO ONETIME ONE Stop: 11/14/16 10:01 Last Admin: 11/14/16 12:00 Dose: 7.5 mg Warfarin Sodium (Coumadin) 10 mg PO ONETIME ONE Stop: 11/15/16 16:01 Last Admin: 11/15/16 16:40 Dose: 10 mg - Exam Physical Findings Comments:: -Calm and cooperative today -Wound is gaping, but not as wide as previous, and clean without any serous or purulent drainage - Problem List Review Problem List Initiated/Reviewed/Updated: Yes - My Orders Last 24 Hours: My Active Orders 11/15/16 18:45 Communication Order [RC] TID 11/15/16 18:47 Incision Care [Wound Care] [RC] 08,20 11/15/16 20:00 fluvoxaMINE [Luvox] 200 mg PO BEDTIME risperiDONE [RisperiDAL] 3 mg PO BID 11/16/16 08:58 Communication Order [RC] ROUTINE 11/16/16 09:00 Communication Order [RC] ROUTINE 11/17/16 07:00 INR,PT,PROTHROMBIN TIME [COAG] DAILY 11/18/16 07:00 INR,PT,PROTHROMBIN TIME [COAG] DAILY 11/19/16 07:00 C-REACTIVE PROTEIN [CHEM] Q7D CBC WITH AUTO DIFF [HEME] Q7D COMPREHENSIVE METABOLIC PN,CMP [CHEM] Q7D INR,PT,PROTHROMBIN TIME [COAG] DAILY SEDIMENTATION RATE AUTO [HEME] Q7D VANCOMYCIN TROUGH [CHEM] 11/22/16 07:00 CREATININE W/GFR [CHEM] Q7D VANCOMYCIN TROUGH [CHEM] 11/26/16 07:00 C-REACTIVE PROTEIN [CHEM] Q7D CBC WITH AUTO DIFF [HEME] Q7D COMPREHENSIVE METABOLIC PN,CMP [CHEM] Q7D SEDIMENTATION RATE AUTO [HEME] Q7D VANCOMYCIN TROUGH [CHEM] 11/29/16 07:00 CREATININE W/GFR [CHEM] Q7D - Assessment Assessment:: -Agitation, now overly sedated -Delirium and possibly mild dementia -Morbid obesity and recent spinal fusion for unstable spinal fracture -Spinal wound was infected, after debridement and re\re suturing, now removal of the sutures, is gaping only mildly -Getting IV antibiotic 6 weeks -Now requires daily INR and Coumadin in order because his INR went high and required vitamin K - Plan Plan:: -Continue the antibiotic, wash the wound daily and dress with Optifoam silver -Continue present sedatives -Coumadin 5 mg today, get dose adjusted daily with daily INR
[2016-11-16] MEDS: Sodium Chloride 0.9% 100 ML IV SCH (20:40)
[2016-11-16] MEDS: cefTRIAXone 2 GM Vial IV SCH (20:44)
[2016-11-16] MEDS: atorvaSTATin 10 MG Tab PO SCH (20:47)
[2016-11-16] MEDS: fluvoxaMINE 100 MG Tab PO SCH (20:51)
[2016-11-17] MEDS: Acetaminophen/HYDROcodone 325-5 MG Tab PO PRN ×2 (00:43→19:41)
[2016-11-17] MEDS: Sodium Chloride 0.9% 10 ML Syringe IV PRN ×5 (01:22→19:45)
[2016-11-17] MEDS: LORazepam 2 MG/ML MDV IV PRN (01:22)
[2016-11-17] MEDS: Insulin Aspart 100 Units/ML 3 ML Pen SUBCUT SCH ×3 (07:51→18:29)
[2016-11-17] MEDS: Insulin Detemir 100 Units/ML 3 ML Pen SUBCUT SCH (07:52)
[2016-11-17] MEDS: Fish Oil/Omega-3 Fatty Acids 1 Gm Cap PO SCH ×2 (08:04→19:47)
[2016-11-17] MEDS: Metoprolol Succinate 50 MG Tab.ER PO SCH (08:04)
[2016-11-17] MEDS: Lactobacillus Rhamnosus GG (Probiotic) Cap PO SCH ×3 (08:04→19:43)
[2016-11-17] MEDS: Multivitamins with Iron/Calcium/Folic Acid/Minerals Tab PO SCH (08:05)
[2016-11-17] MEDS: Calcium Citrate/Vitamin D3 315 MG-250 Unit Tab PO SCH ×2 (08:05→18:30)
[2016-11-17] MEDS: ClonazePAM 0.5 MG Tab PO SCH ×2 (08:05→16:57)
[2016-11-17] MEDS: Potassium Chloride 10 MEQ Tab.ER PO SCH (08:06)
[2016-11-17] MEDS: Spironolactone 25 MG Tab PO SCH (08:07)
[2016-11-17] MEDS: Tamsulosin 0.4 MG Cap.ER PO SCH (08:07)
[2016-11-17] MEDS: Cholecalciferol (Vitamin D3) 1,000 Unit Tab PO SCH (08:07)
[2016-11-17] MEDS: risperiDONE 1 MG Tab PO SCH ×2 (08:07→19:42)
[2016-11-17] MEDS: Furosemide 20 MG Tab PO SCH ×2 (08:07→16:57)
[2016-11-17] MEDS: Losartan 50 MG Tab PO SCH (08:09)
[2016-11-17] MEDS: Lactulose Soln 10 GM/15 ML 30 ML UD Cup PO SCH (08:17)
[2016-11-17] MEDS: CALCITONIN NAS SCH (08:17)
[2016-11-17] MEDS: Warfarin 5 MG Tab PO SCH (09:08)
[2016-11-17] MEDS: Heparin Sodium 100 Units/ML 3 ML Syringe IVPUSH SCH ×2 (10:00→20:00)
[2016-11-17] MEDS: fluvoxaMINE 100 MG Tab PO SCH (19:40)
[2016-11-17] MEDS: atorvaSTATin 10 MG Tab PO SCH (19:42)
[2016-11-17] MEDS: cefTRIAXone 2 GM Vial IV SCH (19:47)
[2016-11-18] MEDS: Acetaminophen/HYDROcodone 325-5 MG Tab PO PRN ×2 (05:37→11:00)
[2016-11-18] MEDS: Insulin Detemir 100 Units/ML 3 ML Pen SUBCUT SCH (08:07)
[2016-11-18] MEDS: Insulin Aspart 100 Units/ML 3 ML Pen SUBCUT SCH ×3 (08:09→18:09)
[2016-11-18] MEDS: Furosemide 20 MG Tab PO SCH ×2 (08:12→17:00)
[2016-11-18] MEDS: Tamsulosin 0.4 MG Cap.ER PO SCH (08:12)
[2016-11-18] MEDS: ClonazePAM 0.5 MG Tab PO SCH ×2 (08:12→17:00)
[2016-11-18] MEDS: Calcium Citrate/Vitamin D3 315 MG-250 Unit Tab PO SCH ×2 (08:12→18:09)
[2016-11-18] MEDS: risperiDONE 1 MG Tab PO SCH ×2 (08:13→20:24)
[2016-11-18] MEDS: Fish Oil/Omega-3 Fatty Acids 1 Gm Cap PO SCH ×2 (08:13→20:24)
[2016-11-18] MEDS: Multivitamins with Iron/Calcium/Folic Acid/Minerals Tab PO SCH (08:13)
[2016-11-18] MEDS: Potassium Chloride 10 MEQ Tab.ER PO SCH (08:13)
[2016-11-18] MEDS: Lactobacillus Rhamnosus GG (Probiotic) Cap PO SCH ×3 (08:13→20:23)
[2016-11-18] MEDS: Cholecalciferol (Vitamin D3) 1,000 Unit Tab PO SCH (08:14)
[2016-11-18] MEDS: Metoprolol Succinate 50 MG Tab.ER PO SCH (08:14)
[2016-11-18] MEDS: Losartan 50 MG Tab PO SCH (08:15)
[2016-11-18] MEDS: Spironolactone 25 MG Tab PO SCH (08:15)
[2016-11-18] MEDS: Lactulose Soln 10 GM/15 ML 30 ML UD Cup PO SCH (08:15)
[2016-11-18] MEDS: CALCITONIN NAS SCH (08:16)
[2016-11-18] MEDS: Sodium Chloride 0.9% 10 ML Syringe IV PRN ×2 (09:58→20:22)
[2016-11-18] MEDS: Heparin Sodium 100 Units/ML 3 ML Syringe IVPUSH SCH ×2 (09:58→20:24)
[2016-11-18] MEDS: Warfarin 5 MG Tab PO SCH (10:00)
[2016-11-18] MEDS: cefTRIAXone 2 GM Vial IV SCH (20:22)
[2016-11-18] MEDS: fluvoxaMINE 100 MG Tab PO SCH (20:23)
[2016-11-18] MEDS: atorvaSTATin 10 MG Tab PO SCH (20:23)
[2016-11-18] MEDS: Sodium Chloride 0.9% 100 ML IV SCH (20:27)
[2016-11-19] MEDS: Acetaminophen/HYDROcodone 325-5 MG Tab PO PRN ×3 (06:41→19:59)
[2016-11-19] MEDS: Sodium Chloride 0.9% 10 ML Syringe IV PRN ×2 (07:32→09:17)
[2016-11-19] MEDS: Cholecalciferol (Vitamin D3) 1,000 Unit Tab PO SCH (07:39)
[2016-11-19] MEDS: Lactobacillus Rhamnosus GG (Probiotic) Cap PO SCH ×3 (07:39→19:56)
[2016-11-19] MEDS: Losartan 50 MG Tab PO SCH (07:39)
[2016-11-19] MEDS: ClonazePAM 0.5 MG Tab PO SCH ×2 (07:39→14:59)
[2016-11-19] MEDS: Metoprolol Succinate 50 MG Tab.ER PO SCH (07:40)
[2016-11-19] MEDS: Furosemide 20 MG Tab PO SCH ×2 (07:40→14:59)
[2016-11-19] MEDS: Spironolactone 25 MG Tab PO SCH (07:40)
[2016-11-19] MEDS: Potassium Chloride 10 MEQ Tab.ER PO SCH (07:40)
[2016-11-19] MEDS: Tamsulosin 0.4 MG Cap.ER PO SCH (07:40)
[2016-11-19] MEDS: risperiDONE 1 MG Tab PO SCH ×2 (07:41→19:57)
[2016-11-19] MEDS: Fish Oil/Omega-3 Fatty Acids 1 Gm Cap PO SCH ×2 (07:41→19:57)
[2016-11-19] MEDS: Calcium Citrate/Vitamin D3 315 MG-250 Unit Tab PO SCH ×2 (07:41→17:02)
[2016-11-19] MEDS: Multivitamins with Iron/Calcium/Folic Acid/Minerals Tab PO SCH (07:41)
[2016-11-19 07:45] LABS: CHLORIDE,CL 107 mmol/L (98-107); SODIUM,NA 141 mmol/L (136-145)
[2016-11-19] MEDS: Insulin Detemir 100 Units/ML 3 ML Pen SUBCUT SCH (07:47)
[2016-11-19] MEDS: Insulin Aspart 100 Units/ML 3 ML Pen SUBCUT SCH ×3 (07:49→17:02)
[2016-11-19] MEDS: CALCITONIN NAS SCH (07:51)
[2016-11-19] MEDS: Lactulose Soln 10 GM/15 ML 30 ML UD Cup PO SCH (07:52)
[2016-11-19] MEDS: Warfarin 5 MG Tab PO SCH (09:08)
[2016-11-19] MEDS: Heparin Sodium 100 Units/ML 3 ML Syringe IVPUSH SCH ×2 (09:17→19:58)
[2016-11-19] MEDS: Phytonadione 100 MCG Tab PO SCH (11:07)
[2016-11-19] MEDS: Warfarin 2.5 MG Tab PO SCH (11:07)
[2016-11-19] MEDS: LORazepam 2 MG/ML MDV IV PRN ×2 (14:54→20:01)
[2016-11-19] MEDS: fluvoxaMINE 100 MG Tab PO SCH (19:57)
[2016-11-19] MEDS: atorvaSTATin 10 MG Tab PO SCH (19:57)
[2016-11-19] MEDS: cefTRIAXone 2 GM Vial IV SCH (19:58)
[2016-11-20] MEDS: Heparin Sodium 100 Units/ML 3 ML Syringe IVPUSH SCH ×3 (02:38→20:18)
[2016-11-20] MEDS: Multivitamins with Iron/Calcium/Folic Acid/Minerals Tab PO SCH (08:35)
[2016-11-20] MEDS: Calcium Citrate/Vitamin D3 315 MG-250 Unit Tab PO SCH ×2 (08:35→17:33)
[2016-11-20] MEDS: Acetaminophen/HYDROcodone 325-5 MG Tab PO PRN ×3 (08:35→21:06)
[2016-11-20] MEDS: Cholecalciferol (Vitamin D3) 1,000 Unit Tab PO SCH (08:35)
[2016-11-20] MEDS: Losartan 50 MG Tab PO SCH (08:37)
[2016-11-20] MEDS: Potassium Chloride 10 MEQ Tab.ER PO SCH (08:37)
[2016-11-20] MEDS: risperiDONE 1 MG Tab PO SCH ×2 (08:37→19:34)
[2016-11-20] MEDS: Lactobacillus Rhamnosus GG (Probiotic) Cap PO SCH ×3 (08:38→19:34)
[2016-11-20] MEDS: Fish Oil/Omega-3 Fatty Acids 1 Gm Cap PO SCH ×2 (08:39→19:34)
[2016-11-20] MEDS: ClonazePAM 0.5 MG Tab PO SCH ×2 (08:39→15:04)
[2016-11-20] MEDS: Spironolactone 25 MG Tab PO SCH (08:40)
[2016-11-20] MEDS: Warfarin 2.5 MG Tab PO SCH (08:40)
[2016-11-20] MEDS: Tamsulosin 0.4 MG Cap.ER PO SCH (08:40)
[2016-11-20] MEDS: Metoprolol Succinate 50 MG Tab.ER PO SCH (08:40)
[2016-11-20] MEDS: Furosemide 20 MG Tab PO SCH ×2 (08:40→15:04)
[2016-11-20] MEDS: Phytonadione 100 MCG Tab PO SCH (08:40)
[2016-11-20] MEDS: Lactulose Soln 10 GM/15 ML 30 ML UD Cup PO SCH (08:41)
[2016-11-20] MEDS: CALCITONIN NAS SCH (08:43)
[2016-11-20] MEDS: Insulin Aspart 100 Units/ML 3 ML Pen SUBCUT SCH ×3 (08:44→17:33)
[2016-11-20] MEDS: Insulin Detemir 100 Units/ML 3 ML Pen SUBCUT SCH (08:49)
[2016-11-20] MEDS: Sodium Chloride 0.9% 10 ML Syringe IV PRN (11:11)
[2016-11-20] MEDS: fluvoxaMINE 100 MG Tab PO SCH (19:34)
[2016-11-20] MEDS: atorvaSTATin 10 MG Tab PO SCH (19:34)
[2016-11-20] MEDS: cefTRIAXone 2 GM Vial IV SCH (19:34)
[2016-11-20] MEDS: LORazepam 2 MG/ML MDV IV PRN (22:39)
[2016-11-21] MEDS: Losartan 50 MG Tab PO SCH (08:02)
[2016-11-21] MEDS: Calcium Citrate/Vitamin D3 315 MG-250 Unit Tab PO SCH ×2 (08:02→17:47)
[2016-11-21] MEDS: Spironolactone 25 MG Tab PO SCH (08:03)
[2016-11-21] MEDS: Phytonadione 100 MCG Tab PO SCH (08:03)
[2016-11-21] MEDS: Lactobacillus Rhamnosus GG (Probiotic) Cap PO SCH ×4 (08:03→21:58)
[2016-11-21] MEDS: Furosemide 20 MG Tab PO SCH ×2 (08:03→15:05)
[2016-11-21] MEDS: Potassium Chloride 10 MEQ Tab.ER PO SCH (08:04)
[2016-11-21] MEDS: Cholecalciferol (Vitamin D3) 1,000 Unit Tab PO SCH (08:05)
[2016-11-21] MEDS: Tamsulosin 0.4 MG Cap.ER PO SCH (08:05)
[2016-11-21] MEDS: Multivitamins with Iron/Calcium/Folic Acid/Minerals Tab PO SCH (08:05)
[2016-11-21] MEDS: Fish Oil/Omega-3 Fatty Acids 1 Gm Cap PO SCH ×3 (08:06→21:38)
[2016-11-21] MEDS: risperiDONE 1 MG Tab PO SCH ×3 (08:06→21:58)
[2016-11-21] MEDS: ClonazePAM 0.5 MG Tab PO SCH ×2 (08:07→15:05)
[2016-11-21] MEDS: Metoprolol Succinate 50 MG Tab.ER PO SCH (08:07)
[2016-11-21] MEDS: Acetaminophen/HYDROcodone 325-5 MG Tab PO PRN ×3 (08:09→20:17)
[2016-11-21] MEDS: CALCITONIN NAS SCH (08:10)
[2016-11-21] MEDS: Insulin Detemir 100 Units/ML 3 ML Pen SUBCUT SCH (08:11)
[2016-11-21] MEDS: Insulin Aspart 100 Units/ML 3 ML Pen SUBCUT SCH ×3 (08:12→17:47)
[2016-11-21] MEDS: Lactulose Soln 10 GM/15 ML 30 ML UD Cup PO SCH (08:15)
[2016-11-21] MEDS: Sodium Chloride 0.9% 10 ML Syringe IV PRN (09:15)
[2016-11-21] MEDS: Heparin Sodium 100 Units/ML 3 ML Syringe IVPUSH SCH ×2 (09:15→20:17)
[2016-11-21] MEDS: Warfarin 2.5 MG Tab PO SCH (11:39)
[2016-11-21] MEDS: cefTRIAXone 2 GM Vial IV SCH (20:16)
[2016-11-21] MEDS: fluvoxaMINE 100 MG Tab PO SCH ×2 (20:17→22:00)
[2016-11-21] MEDS: atorvaSTATin 10 MG Tab PO SCH ×2 (20:19→21:58)
[2016-11-22] MEDS: Acetaminophen/HYDROcodone 325-5 MG Tab PO PRN ×2 (01:09→15:48)
[2016-11-22] MEDS: LORazepam 2 MG/ML MDV IV PRN (01:23)
[2016-11-22] MEDS: ClonazePAM 0.5 MG Tab PO SCH ×2 (07:56→15:00)
[2016-11-22] MEDS: Calcium Citrate/Vitamin D3 315 MG-250 Unit Tab PO SCH ×2 (07:57→17:32)
[2016-11-22] MEDS: Furosemide 20 MG Tab PO SCH ×2 (07:58→15:00)
[2016-11-22] MEDS: Fish Oil/Omega-3 Fatty Acids 1 Gm Cap PO SCH ×2 (07:58→19:36)
[2016-11-22] MEDS: Cholecalciferol (Vitamin D3) 1,000 Unit Tab PO SCH (07:58)
[2016-11-22] MEDS: Lactobacillus Rhamnosus GG (Probiotic) Cap PO SCH ×3 (07:59→19:35)
[2016-11-22] MEDS: Multivitamins with Iron/Calcium/Folic Acid/Minerals Tab PO SCH (07:59)
[2016-11-22] MEDS: Potassium Chloride 10 MEQ Tab.ER PO SCH (07:59)
[2016-11-22] MEDS: Tamsulosin 0.4 MG Cap.ER PO SCH (08:00)
[2016-11-22] MEDS: risperiDONE 1 MG Tab PO SCH ×2 (08:00→19:35)
[2016-11-22] MEDS: Metoprolol Succinate 50 MG Tab.ER PO SCH (08:01)
[2016-11-22] MEDS: Losartan 50 MG Tab PO SCH (08:02)
[2016-11-22] MEDS: Phytonadione 100 MCG Tab PO SCH (08:02)
[2016-11-22] MEDS: Spironolactone 25 MG Tab PO SCH (08:02)
[2016-11-22] MEDS: CALCITONIN NAS SCH (08:03)
[2016-11-22] MEDS: Lactulose Soln 10 GM/15 ML 30 ML UD Cup PO SCH (08:03)
[2016-11-22] MEDS: Insulin Detemir 100 Units/ML 3 ML Pen SUBCUT SCH (08:04)
[2016-11-22] MEDS: Insulin Aspart 100 Units/ML 3 ML Pen SUBCUT SCH ×3 (08:05→17:33)
[2016-11-22] MEDS: Heparin Sodium 100 Units/ML 3 ML Syringe IVPUSH SCH ×2 (09:49→20:47)
[2016-11-22] MEDS: Sodium Chloride 0.9% 10 ML Syringe IV PRN (09:49)
[2016-11-22] MEDS: Warfarin 2.5 MG Tab PO SCH (11:35)
[2016-11-22] MEDS ORDERED: Warfarin 2.5 MG Tab PO ONE (11:45)
[2016-11-22] MEDS: cefTRIAXone 2 GM Vial IV SCH (19:33)
[2016-11-22] MEDS: fluvoxaMINE 100 MG Tab PO SCH (19:34)
[2016-11-22] MEDS: atorvaSTATin 10 MG Tab PO SCH (19:36)
[2016-11-23] MEDS: Heparin Sodium 100 Units/ML 3 ML Syringe IVPUSH PRN (06:49)
[2016-11-23] MEDS: Nystatin Susp 100,000 Unit/ML 5 ML UD Cup PO SCH ×4 (08:03→20:22)
[2016-11-23] MEDS: Acetaminophen/HYDROcodone 325-5 MG Tab PO PRN (08:03)
[2016-11-23] MEDS: Lactulose Soln 10 GM/15 ML 30 ML UD Cup PO SCH (08:05)
[2016-11-23] MEDS: Losartan 50 MG Tab PO SCH (08:08)
[2016-11-23] MEDS: Heparin Sodium 100 Units/ML 3 ML Syringe IVPUSH SCH ×2 (08:08→21:51)
[2016-11-23] MEDS: Lactobacillus Rhamnosus GG (Probiotic) Cap PO SCH ×3 (08:08→20:21)
[2016-11-23] MEDS: Phytonadione 100 MCG Tab PO SCH (08:08)
[2016-11-23] MEDS: Fish Oil/Omega-3 Fatty Acids 1 Gm Cap PO SCH ×2 (08:08→20:21)
[2016-11-23] MEDS: Metoprolol Succinate 50 MG Tab.ER PO SCH (08:08)
[2016-11-23] MEDS: Tamsulosin 0.4 MG Cap.ER PO SCH (08:09)
[2016-11-23] MEDS: Cholecalciferol (Vitamin D3) 1,000 Unit Tab PO SCH (08:09)
[2016-11-23] MEDS: Spironolactone 25 MG Tab PO SCH (08:09)
[2016-11-23] MEDS: Multivitamins with Iron/Calcium/Folic Acid/Minerals Tab PO SCH (08:09)
[2016-11-23] MEDS: Potassium Chloride 10 MEQ Tab.ER PO SCH (08:09)
[2016-11-23] MEDS: Calcium Citrate/Vitamin D3 315 MG-250 Unit Tab PO SCH ×3 (08:09→17:00)
[2016-11-23] MEDS: risperiDONE 1 MG Tab PO SCH ×2 (08:09→20:22)
[2016-11-23] MEDS: ClonazePAM 0.5 MG Tab PO SCH ×2 (08:09→16:53)
[2016-11-23] MEDS: Furosemide 20 MG Tab PO SCH ×2 (08:09→16:53)
[2016-11-23] MEDS: CALCITONIN NAS SCH (08:10)
[2016-11-23] MEDS: Insulin Detemir 100 Units/ML 3 ML Pen SUBCUT SCH (08:11)
[2016-11-23] MEDS: Insulin Aspart 100 Units/ML 3 ML Pen SUBCUT SCH ×3 (08:13→18:26)
[2016-11-23] MEDS: Warfarin 5 MG Tab PO SCH (12:05)
[2016-11-23] MEDS: cefTRIAXone 2 GM Vial IV SCH (19:55)
[2016-11-23] MEDS: fluvoxaMINE 100 MG Tab PO SCH (20:08)
[2016-11-23] MEDS: atorvaSTATin 10 MG Tab PO SCH (20:21)
[2016-11-24] MEDS: Nystatin Susp 100,000 Unit/ML 5 ML UD Cup PO SCH ×4 (07:34→19:57)
[2016-11-24] MEDS: Lactulose Soln 10 GM/15 ML 30 ML UD Cup PO SCH (07:34)
[2016-11-24] MEDS: Metoprolol Succinate 50 MG Tab.ER PO SCH (07:35)
[2016-11-24] MEDS: Calcium Citrate/Vitamin D3 315 MG-250 Unit Tab PO SCH ×2 (07:35→17:25)
[2016-11-24] MEDS: ClonazePAM 0.5 MG Tab PO SCH ×2 (07:35→15:58)
[2016-11-24] MEDS: Phytonadione 100 MCG Tab PO SCH (07:36)
[2016-11-24] MEDS: Cholecalciferol (Vitamin D3) 1,000 Unit Tab PO SCH (07:36)
[2016-11-24] MEDS: Tamsulosin 0.4 MG Cap.ER PO SCH (07:36)
[2016-11-24] MEDS: risperiDONE 1 MG Tab PO SCH ×2 (07:36→19:57)
[2016-11-24] MEDS: Lactobacillus Rhamnosus GG (Probiotic) Cap PO SCH ×3 (07:36→20:50)
[2016-11-24] MEDS: Losartan 50 MG Tab PO SCH (07:36)
[2016-11-24] MEDS: Furosemide 20 MG Tab PO SCH ×2 (07:37→15:58)
[2016-11-24] MEDS: Fish Oil/Omega-3 Fatty Acids 1 Gm Cap PO SCH ×3 (07:37→19:55)
[2016-11-24] MEDS: Spironolactone 25 MG Tab PO SCH (07:37)
[2016-11-24] MEDS: Potassium Chloride 10 MEQ Tab.ER PO SCH (07:37)
[2016-11-24] MEDS: CALCITONIN NAS SCH (07:37)
[2016-11-24] MEDS: Multivitamins with Iron/Calcium/Folic Acid/Minerals Tab PO SCH (07:37)
[2016-11-24] MEDS: Insulin Detemir 100 Units/ML 3 ML Pen SUBCUT SCH (07:38)
[2016-11-24] MEDS: Insulin Aspart 100 Units/ML 3 ML Pen SUBCUT SCH ×3 (07:38→17:25)
[2016-11-24] MEDS: Heparin Sodium 100 Units/ML 3 ML Syringe IVPUSH SCH ×2 (08:03→20:51)
[2016-11-24] MEDS ORDERED: Warfarin 2.5 MG Tab PO SCH (12:00)
[2016-11-24] MEDS: Acetaminophen/HYDROcodone 325-5 MG Tab PO PRN ×2 (12:04→19:35)
[2016-11-24] MEDS: atorvaSTATin 10 MG Tab PO SCH (19:55)
[2016-11-24] MEDS: fluvoxaMINE 100 MG Tab PO SCH (19:56)
[2016-11-24] MEDS: cefTRIAXone 2 GM Vial IV SCH (20:50)
[2016-11-24] MEDS: LORazepam 2 MG/ML MDV IV PRN (22:37)
[2016-11-25] MEDS: Lactulose Soln 10 GM/15 ML 30 ML UD Cup PO SCH (07:29)
[2016-11-25] MEDS: Nystatin Susp 100,000 Unit/ML 5 ML UD Cup PO SCH ×4 (07:29→19:33)
[2016-11-25] MEDS: Spironolactone 25 MG Tab PO SCH (07:30)
[2016-11-25] MEDS: Furosemide 20 MG Tab PO SCH ×2 (07:30→16:04)
[2016-11-25] MEDS: Fish Oil/Omega-3 Fatty Acids 1 Gm Cap PO SCH ×2 (07:30→19:33)
[2016-11-25] MEDS: risperiDONE 1 MG Tab PO SCH ×2 (07:30→19:34)
[2016-11-25] MEDS: Potassium Chloride 10 MEQ Tab.ER PO SCH (07:30)
[2016-11-25] MEDS: ClonazePAM 0.5 MG Tab PO SCH ×2 (07:30→16:04)
[2016-11-25] MEDS: Cholecalciferol (Vitamin D3) 1,000 Unit Tab PO SCH (07:30)
[2016-11-25] MEDS: Losartan 50 MG Tab PO SCH (07:30)
[2016-11-25] MEDS: Multivitamins with Iron/Calcium/Folic Acid/Minerals Tab PO SCH (07:31)
[2016-11-25] MEDS: Phytonadione 100 MCG Tab PO SCH (07:31)
[2016-11-25] MEDS: Calcium Citrate/Vitamin D3 315 MG-250 Unit Tab PO SCH ×2 (07:31→17:22)
[2016-11-25] MEDS: Tamsulosin 0.4 MG Cap.ER PO SCH (07:31)
[2016-11-25] MEDS: Metoprolol Succinate 50 MG Tab.ER PO SCH (07:31)
[2016-11-25] MEDS: Lactobacillus Rhamnosus GG (Probiotic) Cap PO SCH ×3 (07:31→19:33)
[2016-11-25] MEDS: Insulin Aspart 100 Units/ML 3 ML Pen SUBCUT SCH ×3 (07:32→17:23)
[2016-11-25] MEDS: CALCITONIN NAS SCH (07:32)
[2016-11-25] MEDS: Insulin Detemir 100 Units/ML 3 ML Pen SUBCUT SCH (07:33)
[2016-11-25] MEDS: Heparin Sodium 100 Units/ML 3 ML Syringe IVPUSH SCH (09:30)
[2016-11-25] MEDS: Warfarin 5 MG Tab PO SCH (12:21)
[2016-11-25] MEDS: Acetaminophen/HYDROcodone 325-5 MG Tab PO PRN (12:22)
[2016-11-25] MEDS: Sodium Chloride 0.9% 100 ML IV SCH (19:31)
[2016-11-25] MEDS: cefTRIAXone 2 GM Vial IV SCH (19:31)
[2016-11-25] MEDS: fluvoxaMINE 100 MG Tab PO SCH (19:32)
[2016-11-25] MEDS: atorvaSTATin 10 MG Tab PO SCH (19:33)
[2016-11-26] MEDS: Lactulose Soln 10 GM/15 ML 30 ML UD Cup PO SCH (07:35)
[2016-11-26 07:36] LABS: CHLORIDE,CL 106 mmol/L (98-107); SODIUM,NA 140 mmol/L (136-145)
[2016-11-26] MEDS: CALCITONIN NAS SCH (07:44)
[2016-11-26] MEDS: Nystatin Susp 100,000 Unit/ML 5 ML UD Cup PO SCH ×4 (07:44→19:37)
[2016-11-26] MEDS: Insulin Aspart 100 Units/ML 3 ML Pen SUBCUT SCH ×3 (07:45→18:17)
[2016-11-26] MEDS: Insulin Detemir 100 Units/ML 3 ML Pen SUBCUT SCH (07:46)
[2016-11-26] MEDS: Losartan 50 MG Tab PO SCH (07:47)
[2016-11-26] MEDS: Spironolactone 25 MG Tab PO SCH (07:48)
[2016-11-26] MEDS: Multivitamins with Iron/Calcium/Folic Acid/Minerals Tab PO SCH (07:48)
[2016-11-26] MEDS: Tamsulosin 0.4 MG Cap.ER PO SCH (07:48)
[2016-11-26] MEDS: Cholecalciferol (Vitamin D3) 1,000 Unit Tab PO SCH (07:48)
[2016-11-26] MEDS: Phytonadione 100 MCG Tab PO SCH (07:48)
[2016-11-26] MEDS: Fish Oil/Omega-3 Fatty Acids 1 Gm Cap PO SCH ×2 (07:48→19:35)
[2016-11-26] MEDS: Metoprolol Succinate 50 MG Tab.ER PO SCH (07:48)
[2016-11-26] MEDS: Potassium Chloride 10 MEQ Tab.ER PO SCH (07:48)
[2016-11-26] MEDS: Furosemide 20 MG Tab PO SCH ×2 (07:48→16:04)
[2016-11-26] MEDS: Calcium Citrate/Vitamin D3 315 MG-250 Unit Tab PO SCH ×2 (07:48→18:18)
[2016-11-26] MEDS: risperiDONE 1 MG Tab PO SCH ×2 (07:49→19:36)
[2016-11-26] MEDS: ClonazePAM 0.5 MG Tab PO SCH ×2 (07:49→16:04)
[2016-11-26] MEDS: Lactobacillus Rhamnosus GG (Probiotic) Cap PO SCH ×3 (07:49→19:36)
[2016-11-26] MEDS ORDERED: Warfarin 2.5 MG Tab PO SCH ×2 (12:00→20:00)
[2016-11-26] MEDS: Acetaminophen/HYDROcodone 325-5 MG Tab PO PRN (12:14)
[2016-11-26] MEDS: cefTRIAXone 2 GM Vial IV SCH (19:34)
[2016-11-26] MEDS: fluvoxaMINE 100 MG Tab PO SCH (19:34)
[2016-11-26] MEDS: Warfarin 2.5 MG Tab PO SCH (19:35)
[2016-11-26] MEDS: atorvaSTATin 10 MG Tab PO SCH (19:36)
[2016-11-27] MEDS: Sodium Chloride 0.9% 10 ML Syringe FLUSH PRN ×2 (06:55→10:28)
[2016-11-27] MEDS: Calcium Citrate/Vitamin D3 315 MG-250 Unit Tab PO SCH ×2 (08:10→17:08)
[2016-11-27] MEDS: Cholecalciferol (Vitamin D3) 1,000 Unit Tab PO SCH (08:10)
[2016-11-27] MEDS: Multivitamins with Iron/Calcium/Folic Acid/Minerals Tab PO SCH (08:10)
[2016-11-27] MEDS: Losartan 50 MG Tab PO SCH (08:12)
[2016-11-27] MEDS: Fish Oil/Omega-3 Fatty Acids 1 Gm Cap PO SCH ×2 (08:13→20:24)
[2016-11-27] MEDS: Potassium Chloride 10 MEQ Tab.ER PO SCH (08:13)
[2016-11-27] MEDS: Phytonadione 100 MCG Tab PO SCH (08:13)
[2016-11-27] MEDS: ClonazePAM 0.5 MG Tab PO SCH ×2 (08:13→15:32)
[2016-11-27] MEDS: risperiDONE 1 MG Tab PO SCH ×2 (08:14→20:26)
[2016-11-27] MEDS: Lactobacillus Rhamnosus GG (Probiotic) Cap PO SCH ×3 (08:14→20:26)
[2016-11-27] MEDS: Tamsulosin 0.4 MG Cap.ER PO SCH (08:14)
[2016-11-27] MEDS: Furosemide 20 MG Tab PO SCH ×2 (08:14→15:32)
[2016-11-27] MEDS: Metoprolol Succinate 50 MG Tab.ER PO SCH (08:15)
[2016-11-27] MEDS: Nystatin Susp 100,000 Unit/ML 5 ML UD Cup PO SCH ×4 (08:16→20:25)
[2016-11-27] MEDS: Spironolactone 25 MG Tab PO SCH (08:16)
[2016-11-27] MEDS: CALCITONIN NAS SCH (08:16)
[2016-11-27] MEDS: Lactulose Soln 10 GM/15 ML 30 ML UD Cup PO SCH (08:16)
[2016-11-27] MEDS: Insulin Aspart 100 Units/ML 3 ML Pen SUBCUT SCH ×3 (08:17→17:08)
[2016-11-27] MEDS: Insulin Detemir 100 Units/ML 3 ML Pen SUBCUT SCH (08:18)
[2016-11-27] MEDS: atorvaSTATin 10 MG Tab PO SCH (20:25)
[2016-11-27] MEDS: Warfarin 5 MG Tab PO SCH (20:25)
[2016-11-27] MEDS: Acetaminophen/HYDROcodone 325-5 MG Tab PO PRN (20:27)
[2016-11-27] MEDS: fluvoxaMINE 100 MG Tab PO SCH (20:29)
[2016-11-27] MEDS: cefTRIAXone 2 GM Vial IV SCH (20:30)
[2016-11-27] MEDS: LORazepam 2 MG/ML MDV IV PRN ×2 (20:34→22:55)
[2016-11-28] MEDS: Potassium Chloride 10 MEQ Tab.ER PO SCH (08:43)
[2016-11-28] MEDS: Calcium Citrate/Vitamin D3 315 MG-250 Unit Tab PO SCH ×2 (08:43→17:34)
[2016-11-28] MEDS: Lactobacillus Rhamnosus GG (Probiotic) Cap PO SCH ×3 (08:43→21:06)
[2016-11-28] MEDS: Cholecalciferol (Vitamin D3) 1,000 Unit Tab PO SCH (08:44)
[2016-11-28] MEDS: Spironolactone 25 MG Tab PO SCH (08:44)
[2016-11-28] MEDS: Multivitamins with Iron/Calcium/Folic Acid/Minerals Tab PO SCH (08:44)
[2016-11-28] MEDS: Furosemide 20 MG Tab PO SCH ×2 (08:46→15:16)
[2016-11-28] MEDS: ClonazePAM 0.5 MG Tab PO SCH ×2 (08:46→15:15)
[2016-11-28] MEDS: Tamsulosin 0.4 MG Cap.ER PO SCH (08:47)
[2016-11-28] MEDS: Fish Oil/Omega-3 Fatty Acids 1 Gm Cap PO SCH ×2 (08:47→21:07)
[2016-11-28] MEDS: risperiDONE 1 MG Tab PO SCH ×2 (08:48→21:05)
[2016-11-28] MEDS: Phytonadione 100 MCG Tab PO SCH (08:48)
[2016-11-28] MEDS: Nystatin Susp 100,000 Unit/ML 5 ML UD Cup PO SCH ×4 (08:49→21:05)
[2016-11-28] MEDS: Losartan 50 MG Tab PO SCH (08:49)
[2016-11-28] MEDS: Metoprolol Succinate 50 MG Tab.ER PO SCH (08:49)
[2016-11-28] MEDS: Lactulose Soln 10 GM/15 ML 30 ML UD Cup PO SCH (08:50)
[2016-11-28] MEDS: Insulin Detemir 100 Units/ML 3 ML Pen SUBCUT SCH (08:51)
[2016-11-28] MEDS: Insulin Aspart 100 Units/ML 3 ML Pen SUBCUT SCH ×3 (08:52→17:34)
[2016-11-28] MEDS: CALCITONIN NAS SCH (08:53)
[2016-11-28] MEDS: fluvoxaMINE 100 MG Tab PO SCH (21:03)
[2016-11-28] MEDS: Acetaminophen/HYDROcodone 325-5 MG Tab PO PRN ×2 (21:04)
[2016-11-28] MEDS: atorvaSTATin 10 MG Tab PO SCH (21:06)
[2016-11-28] MEDS: Warfarin 2.5 MG Tab PO SCH (21:06)
[2016-11-28] MEDS: cefTRIAXone 2 GM Vial IV SCH (21:08)
[2016-11-28] MEDS: LORazepam 2 MG/ML MDV IV PRN (21:12)
[2016-11-29] MEDS: CALCITONIN NAS SCH (08:01)
[2016-11-29] MEDS: Insulin Aspart 100 Units/ML 3 ML Pen SUBCUT SCH ×3 (08:01→18:19)
[2016-11-29] MEDS: Insulin Detemir 100 Units/ML 3 ML Pen SUBCUT SCH (08:02)
[2016-11-29] MEDS: Calcium Citrate/Vitamin D3 315 MG-250 Unit Tab PO SCH ×2 (08:03→18:18)
[2016-11-29] MEDS: Fish Oil/Omega-3 Fatty Acids 1 Gm Cap PO SCH ×2 (08:03→19:59)
[2016-11-29] MEDS: Furosemide 20 MG Tab PO SCH ×2 (08:03→18:18)
[2016-11-29] MEDS: Spironolactone 25 MG Tab PO SCH (08:03)
[2016-11-29] MEDS: ClonazePAM 0.5 MG Tab PO SCH ×2 (08:03→18:18)
[2016-11-29] MEDS: Losartan 50 MG Tab PO SCH (08:04)
[2016-11-29] MEDS: Phytonadione 100 MCG Tab PO SCH (08:04)
[2016-11-29] MEDS: Tamsulosin 0.4 MG Cap.ER PO SCH (08:04)
[2016-11-29] MEDS: Potassium Chloride 10 MEQ Tab.ER PO SCH (08:04)
[2016-11-29] MEDS: Multivitamins with Iron/Calcium/Folic Acid/Minerals Tab PO SCH (08:04)
[2016-11-29] MEDS: risperiDONE 1 MG Tab PO SCH ×2 (08:04→20:00)
[2016-11-29] MEDS: Cholecalciferol (Vitamin D3) 1,000 Unit Tab PO SCH (08:04)
[2016-11-29] MEDS: Lactobacillus Rhamnosus GG (Probiotic) Cap PO SCH ×4 (08:04→20:00)
[2016-11-29] MEDS: Metoprolol Succinate 50 MG Tab.ER PO SCH (08:04)
[2016-11-29] MEDS: Lactulose Soln 10 GM/15 ML 30 ML UD Cup PO SCH (08:05)
[2016-11-29] MEDS: Acetaminophen/HYDROcodone 325-5 MG Tab PO PRN ×3 (10:17→23:07)
[2016-11-29] MEDS: fluvoxaMINE 100 MG Tab PO SCH (19:58)
[2016-11-29] MEDS: atorvaSTATin 10 MG Tab PO SCH (19:59)
[2016-11-29] MEDS: Doxycycline 100 MG Cap PO SCH (19:59)
[2016-11-29] MEDS: LORazepam 2 MG/ML MDV IV PRN (20:01)
[2016-11-29] MEDS: Warfarin 5 MG Tab PO SCH (20:01)
[2016-11-30 06:53] VITALS: BP 156/84
[2016-11-30] MEDS: Metoprolol Succinate 50 MG Tab.ER PO SCH (07:38)
[2016-11-30] MEDS: Fish Oil/Omega-3 Fatty Acids 1 Gm Cap PO SCH (07:38)
[2016-11-30] MEDS: Doxycycline 100 MG Cap PO SCH (07:38)
[2016-11-30] MEDS: Calcium Citrate/Vitamin D3 315 MG-250 Unit Tab PO SCH (07:38)
[2016-11-30] MEDS: Spironolactone 25 MG Tab PO SCH (07:38)
[2016-11-30] MEDS: risperiDONE 1 MG Tab PO SCH (07:38)
[2016-11-30] MEDS: Phytonadione 100 MCG Tab PO SCH (07:38)
[2016-11-30] MEDS: Cholecalciferol (Vitamin D3) 1,000 Unit Tab PO SCH (07:38)
[2016-11-30] MEDS: Furosemide 20 MG Tab PO SCH (07:39)
[2016-11-30] MEDS: ClonazePAM 0.5 MG Tab PO SCH (07:39)
[2016-11-30] MEDS: Lactobacillus Rhamnosus GG (Probiotic) Cap PO SCH (07:39)
[2016-11-30] MEDS: Lactulose Soln 10 GM/15 ML 30 ML UD Cup PO SCH (07:39)
[2016-11-30] MEDS: Losartan 50 MG Tab PO SCH (07:39)
[2016-11-30] MEDS: Potassium Chloride 10 MEQ Tab.ER PO SCH (07:39)
[2016-11-30] MEDS: Tamsulosin 0.4 MG Cap.ER PO SCH (07:39)
[2016-11-30] MEDS: Multivitamins with Iron/Calcium/Folic Acid/Minerals Tab PO SCH (07:39)
[2016-11-30] MEDS: Insulin Aspart 100 Units/ML 3 ML Pen SUBCUT SCH (07:45)
[2016-11-30] MEDS: Insulin Detemir 100 Units/ML 3 ML Pen SUBCUT SCH (07:46)
[2016-11-30] MEDS: CALCITONIN NAS SCH (07:47)
--- NOTE | 2016-11-30 21:36 | PCM.DCSUM1 ---
Discharge Summary - Discharge Data Discharge Date: 11/30/16 Discharge Disposition: DC/Tfer to SNF 03 Condition: Good - Patient Summary/Data Operative Procedure(s) Performed: None Consults: Consultations 10/26/16 13:59 OT Evaluation and Treatment [CONS] Routine 10/26/16 14:00 PT Evaluation and Treatment [CONS] Routine 11/03/16 08:56 Consult to Speech Language Pathology [MEDICAL RECEPTION SPECIALIST Evaluation and Treatment] [CONS] Routine - Discharge Plan Home Medications: Home Meds Potassium Chloride 10 meq PO DAILY 08/28/16 [History] Bisacodyl [Dulcolax] 5 mg PO DAILY PRN 10/13/16 [History] Calcitonin ([place]) [Miacalcin Nasal [place]] 200 units OJ DAILY 10/13/16 [ History] Calcium Citrate/Vitamin D3 [Calcium Citrate - Vit D Caplet] 1 each PO BIDMEALS 10/13/16 [History] ClonazePAM [KlonoPIN] 1 mg PO DAILY 10/13/16 [History] Furosemide [Lasix] 20 mg PO BID 10/13/16 [History] Insulin Detemir [Levemir Flextouch] 12 unit SQ DAILY 10/13/16 [History] Liraglutide [Victoza] 0.6 mg SUBCUT BEDTIME 10/13/16 [History] Losartan [Cozaar] 100 mg PO DAILY 10/13/16 [History] Metoprolol Succinate [Toprol XL] 50 mg PO DAILY 10/13/16 [History] Multivitamin [Daily Doc] 1 each PO DAILY 10/13/16 [History] [place]-3/DHA/Epa/Fish Oil [[place] 3 500 Softgel] 1,000 mg PO BID 10/13/16 [History ] Spironolactone [Aldactone] 25 mg PO DAILY 10/13/16 [History] atorvaSTATin [Lipitor] 10 mg PO BEDTIME 10/13/16 [History] risperiDONE [Risperdal] 2 mg PO BEDTIME 10/13/16 [History] fluvoxaMINE [Luvox] 200 mg PO BEDTIME 10/29/16 [History] Acetaminophen/HYDROcodone [[place] 325-5 MG] 2 tab PO Q6H PRN #0 tablet 11/30/16 [ Rx] Fish Oil/[place]-3 Fatty Acids [Fish Oil 1,000 MG] 1 gm PO BID cap 11/30/16 [Rx] Insulin Aspart [NovoLOG] 4 unit SUBCUT TIDMEALS pen 11/30/16 [Rx] Lactulose [Cephulac] 20 gm PO DAILY cup 11/30/16 [Rx] Phytonadione [Vitamin K] 100 mcg PO DAILY tablet 11/30/16 [Rx] Warfarin [Coumadin] 2.5 mg PO MOWEFR@1999 tablet 11/30/16 [Rx] Warfarin [Coumadin] 5 mg PO SuTuThSa@1999 tablet 11/30/16 [Rx] atorvaSTATin [Lipitor] 10 mg PO BEDTIME tablet 11/30/16 [Rx] fluvoxaMINE [Luvox] 200 mg PO BEDTIME tablet 11/30/16 [Rx] - Discharge Summary/Plan Comment Discharge Summary/Plan Comment: Final Diagnosis: -Wound infection following surgical stabilization of lumbar spine fracture -Delirium and agitation Secondary Diagnoses: -Morbid obesity -Diabetes type 2 -Prostatic hypertrophy -Hyperlipidemia -Mild intellectual disability -Depression -Hx severe lower leg edema with stasis ulcers Reason for admission: On 10/01/16 patient had surgical stabilization, Biotene 9L4 thoracolumbar fusion with T12, L1 laminectomies of T12 three-column injury and L1 compression fracture at [facility]. He seemed to do well and was back at [facility] but on 10/15/16, on removing his nader, the wound dehisced and drained rather profuse amount of serous and very mildly purulent drainage, so he was sent back to [facility] where on 10/16/16 he had surgical debridement of the wound , primary closure, insertion of wound VAC. His culture grew staph epidermidis. He came back to [place] 10/26/16 on IV vancomycin and ceftriaxone 6 weeks. Treatment and Course in Hospital: He was very agitated much of the first 3 weeks, required sedation with Klonopin , IV Ativan, and oral Risperdal, finally improved somewhat. He did leave his PICC line in until 1 day before antibiotic was to be finished, then pulled it out. On 11/05 his INR was 2.3 and by 11/12 it had gone up > 13, so his Coumadin was held and he was given 2.5 mg of vitamin K. On 11/12 INR was 9.1 so he got another 2.5 mg and on 11/13 his INR was 2.9. After that it went low and he required up to 10 mg of Coumadin daily, over the next week was stabilized on 100 g of vitamin K daily, Coumadin 2.5 mg , , , and 5 mg the other 4 days, with his last INR on 11/29 being 2.0. This was done because he did have DVT shortly after his initial surgery. He remained afebrile and mildly hypertensive during his entire stay, did not require supplemental oxygen. Condition on Discharge: -Alert and able to answer questions. -Still has back pain and takes Plano 10/325, 2 QID. -Only 1+ lower leg edema now, mild erythema of his lower legs. -Heart sounds regular and normal -Lungs clear -Wearing back brace, did not remove to examine his back wound but nurses say it is almost completely healed in Discharge Plan: -Per request of Infectious Disease, he will get doxycycline 100 mg BID 3 months -Continue Plano 10/325, 2 QID for a few weeks -Continue same Coumadin, get INR 3 times weekly at first and Coumadin dose will be managed by [facility] -He is Full Code status still -He will have F/U consult with Infectious Disease in 6 weeks - Patient Data Vitals - Most Recent: Last Vital Signs Temp 36.2 C 11/30/16 06:00 Pulse 80 11/30/16 07:38 Resp 20 11/30/16 06:00 BP 156/84 H 11/30/16 07:39 Pulse Ox 99 11/30/16 06:00 Weight - Most Recent: 108.136 kg I&O - Last 24 hours: Intake & Output 11/30/16 11/30/16 11/30/16 06:59 14:59 22:59 Intake Total 180 Balance 180 Lab Results - Last 24 hrs: Laboratory Results - last 24 hr 11/29/16 11/29/16 11/30/16 Range/Units 05:50 18:16 06:00 POC Glucose 126 H 224 H 106 (74-106) mg/dL Med Orders - Current: Current Medications Discontinued Medications Acetaminophen (Tylenol) 650 mg PO Q4H PRN PRN Reason: MILD PAIN OR FEVER Acetaminophen (Tylenol) 650 mg PO Q4H PRN PRN Reason: Pain/Fever Last Admin: 11/05/16 08:27 Dose: 650 mg Acetaminophen/Hydrocodone Bitart ([place] 325-5 Mg) 1 tab PO Q6H PRN PRN Reason: MODERATE PAIN (4-6 OF 10) Last Admin: 11/20/16 15:04 Dose: 1 tab Acetaminophen/Hydrocodone Bitart ([place] 325-5 Mg) 2 tab PO Q6H PRN PRN Reason: SEVERE PAIN (7-10 OF 10) Last Admin: 11/29/16 23:07 Dose: 2 tab Atorvastatin Calcium (Lipitor) 10 mg PO BEDTIME [facility] Last Admin: 11/29/16 19:59 Dose: 10 mg Atorvastatin Calcium (Lipitor) 10 mg PO BEDTIME [facility] Bisacodyl (Dulcolax) 5 mg PO DAILY PRN PRN Reason: CONSTIPATION Bisacodyl (Dulcolax) 5 mg PO DAILY PRN PRN Reason: Constipation Calcitonin [place] (Miacalcin Nasal [place]) 0 ml OJ DAILY [facility] Last Admin: 11/30/16 07:47 Dose: 1 spray Calcitonin [place] (Miacalcin Nasal [place]) ml OJ DAILY [facility] Calcium Citrate (Calcium Citrate + D) 1 tab PO BIDMEALS [facility] Last Admin: 11/30/16 07:38 Dose: 1 tab Ceftriaxone Sodium (Rocephin) 2 gm IV BEDTIME [facility] Last Admin: 11/28/16 21:08 Dose: 2 gm Cholecalciferol (Vitamin D3) 2,000 units PO DAILY [facility] Last Admin: 11/30/16 07:38 Dose: 2,000 units Clonazepam (Klonopin) 1 mg PO DAILY@1100 [facility] Last Admin: 11/02/16 11:52 Dose: Not Given Clonazepam (Klonopin) 2 mg PO BID@0800,1600 [facility] Last Admin: 11/04/16 08:35 Dose: Not Given Clonazepam (Klonopin) 1 mg PO BID@0800,1600 [facility] Last Admin: 11/30/16 07:39 Dose: 1 mg Doxycycline Hyclate (Vibramycin) 100 mg PO BID [facility] Stop: 03/01/17 20:01 Last Admin: 11/30/16 07:38 Dose: 100 mg Enoxaparin Sodium (Lovenox) 120 mg SUBCUT BID [facility] Stop: 10/30/16 20:01 Last Admin: 10/30/16 20:03 Dose: 120 mg Fish Oil (Fish Oil) 1 gm PO BID [facility] Last Admin: 11/30/16 07:38 Dose: 1 gm Fluvoxamine Maleate (Luvox) 200 mg PO BEDTIME [facility] Last Admin: 11/29/16 19:58 Dose: 200 mg Furosemide (Lasix) 20 mg PO BIDDIURETIC [facility] Last Admin: 11/30/16 07:39 Dose: 20 mg Furosemide (Lasix) 20 mg PO BID [facility] Haloperidol Lactate (Haldol) 5 mg IVPUSH Q30M PRN PRN Reason: Agitation Last Admin: 11/02/16 06:18 Dose: 5 mg Haloperidol Lactate (Haldol) 5 mg IVPUSH Q6H [facility] Last Admin: 11/03/16 17:45 Dose: Not Given Heparin Sodium (Porcine) (Heparin Lock Flush 100 Units/Ml) 300 unit IVPUSH Q12H [facility] Last Admin: 10/26/16 15:26 Dose: Not Given Heparin Sodium (Porcine) (Heparin Lock Flush 100 Units/Ml) 300 unit IVPUSH ASDIRECTED PRN PRN Reason: Keep Vein Open Last Admin: 11/23/16 06:49 Dose: 300 unit Heparin Sodium (Porcine) (Heparin Lock Flush 100 Units/Ml) 300 unit IVPUSH Q12H [facility] Last Admin: 11/25/16 09:30 Dose: 300 unit Vancomycin HCl 1.75 gm/ Sodium (Chloride) 250 mls @ 165 mls/hr IV ONETIME ONE Stop: 10/26/16 17:30 Last Admin: 10/26/16 16:06 Dose: 143 mls/hr Vancomycin HCl 1.75 gm/ Sodium (Chloride) 250 mls @ 142 mls/hr IV Q12H [facility] Last Admin: 11/05/16 08:12 Dose: 142 mls/hr Sodium Chloride (Normal Saline) 100 mls @ 150 mls/hr IV ASDIRECTED [facility] Last Admin: 11/25/16 19:31 Dose: 150 mls/hr Sodium Chloride (Normal Saline) 500 mls @ 500 mls/hr IV ONETIME ONE Stop: 11/03/16 19:42 Last Admin: 11/03/16 18:53 Dose: 500 mls/hr Sodium Chloride (Normal Saline) 500 mls @ 250 mls/hr IV ONETIME ONE Stop: 11/03/16 21:41 Last Admin: 11/03/16 19:53 Dose: 250 mls/hr Vancomycin HCl 1.5 gm/ Sodium (Chloride) 250 mls @ 167 mls/hr IV BID@0730,1930 [facility] Last Admin: 11/08/16 07:28 Dose: 167 mls/hr Vancomycin HCl 1.25 gm/ Sodium (Chloride) 250 mls @ 167 mls/hr IV BID@0730, 1930 [facility] Last Admin: 11/11/16 19:31 Dose: 167 mls/hr Vancomycin HCl 1.25 gm/ Sodium (Chloride) 250 mls @ 167 mls/hr IV BID@0730, 1930 [facility] Last Admin: 11/19/16 07:32 Dose: 167 mls/hr Vancomycin HCl 1.75 gm/ Sodium (Chloride) 295 mls @ 167 mls/hr IV DAILY@0730 [facility] Last Admin: 11/22/16 07:52 Dose: 167 mls/hr Vancomycin HCl 1 gm/ Sodium (Chloride) 250 mls @ 250 mls/hr IV BID@0730,1930 [facility] Last Admin: 11/26/16 07:36 Dose: 250 mls/hr Vancomycin HCl 1.25 gm/ Sodium (Chloride) 250 mls @ 125 mls/hr IV Q18H [facility] Last Admin: 11/29/16 13:08 Dose: Not Given Insulin Aspart (Novolog) 4 unit SUBCUT TIDMEALS [facility] Last Admin: 11/30/16 07:45 Dose: 4 units Insulin Detemir (Levemir) 12 unit SUBCUT DAILY [facility] Last Admin: 11/30/16 07:46 Dose: 12 units Insulin Detemir (Levemir) 12 unit SUBCUT DAILY [facility] Stop: 10/27/16 16:50 Lactobacillus Rhamnosus (Culturelle) 1 cap PO TID [facility] Last Admin: 11/30/16 07:39 Dose: 1 cap Lactulose (Cephulac) 20 gm PO DAILY [facility] Last Admin: 11/30/16 07:39 Dose: 20 gm Lorazepam (Ativan) 1 mg IVPUSH Q2H PRN PRN Reason: Agitation Last Admin: 10/30/16 06:17 Dose: 1 mg Lorazepam (Ativan) 2 mg IV Q2H PRN PRN Reason: Agitation Last Admin: 11/29/16 20:01 Dose: 2 mg Losartan Potassium (Cozaar) 100 mg PO DAILY [facility] Last Admin: 11/30/16 07:39 Dose: 100 mg Metoprolol Succinate (Toprol Xl) 50 mg PO DAILY [facility] Last Admin: 11/30/16 07:38 Dose: 50 mg Metoprolol Succinate (Toprol Xl) 50 mg PO DAILY [facility] Multivitamins/Minerals (Thera M Plus) 1 tab PO DAILY [facility] Last Admin: 11/30/16 07:39 Dose: 1 tab Fluvoxamine 100mg (Tab) 2 each PO BEDTIME [facility] Victoza 18mg/3ml 0 each SUBCUT BEDTIME [facility] Last Admin: 10/28/16 19:55 Dose: Not Given Non-Formulary Medication (Calcium Citrate/Vitamin D3 [Calcium Citrate - Vit D Caplet]) 1 each PO BIDMEALS [facility] Non-Formulary Medication (Clonazepam [Klonopin]) 1 mg PO DAILY [facility] Non-Formulary Medication (Liraglutide [Victoza]) 0.6 mg SUBCUT BEDTIME [facility] Non-Formulary Medication (Losartan [Cozaar]) 100 mg PO DAILY [facility] Non-Formulary Medication (Multivitamin [Daily Doc]) 1 each PO DAILY [facility] Non-Formulary Medication ([place]-3/Dha/Epa/Fish Oil [[place] 3 500 Softgel]) 1, 000 mg PO BID [facility] Non-Formulary Medication (Potassium Chloride [Potassium Chloride]) 10 meq PO DAILY [facility] Non-Formulary Medication (Fluvoxamine Maleate [Fluvoxamine Maleate Er]) 200 mg PO BEDTIME [facility] Last Admin: 10/27/16 10:55 Dose: Not Given Non-Formulary Medication (Risperidone [Risperdal]) 2 mg PO BEDTIME [facility] Fluvoxamine 100mg (TabPtom) 2 each PO BEDTIME [facility] Last Admin: 10/28/16 19:54 Dose: 2 each Fluvoxamine 100mg (Tab) 2 each PO BEDTIME [facility] Last Admin: 11/14/16 20:24 Dose: 2 each Nystatin (Mycostatin) 5 ml PO QID [facility] Stop: 11/28/16 22:00 Last Admin: 11/28/16 21:05 Dose: 5 ml Phytonadione (Aquamephyton) 2.5 mg PO ONETIME ONE Stop: 11/12/16 08:09 Last Admin: 11/12/16 08:52 Dose: 2.5 mg Phytonadione (Aquamephyton) 2.5 mg PO ONETIME ONE Stop: 11/12/16 17:52 Last Admin: 11/12/16 18:20 Dose: 2.5 mg Phytonadione (Vitamin K) 100 mcg PO DAILY [facility] Last Admin: 11/30/16 07:38 Dose: 100 mcg Potassium Chloride (Klor-Con 10) 10 meq PO DAILY [facility] Last Admin: 11/30/16 07:39 Dose: 10 meq Risperidone (Risperidal) 2 mg PO BEDTIME [facility] Last Admin: 10/30/16 20:00 Dose: 2 mg Risperidone (Risperidal) 2 mg PO BID [facility] Last Admin: 11/13/16 08:03 Dose: 2 mg Risperidone (Risperidal) 2 mg PO NOW ONE Stop: 11/13/16 16:04 Last Admin: 11/13/16 16:18 Dose: 2 mg Risperidone (Risperidal) 4 mg PO BID [facility] Last Admin: 11/15/16 09:07 Dose: Not Given Risperidone (Risperidal) 3 mg PO BID [facility] Last Admin: 11/30/16 07:38 Dose: 3 mg Sodium Chloride (Saline Flush) 10 ml IV ASDIRECTED PRN PRN Reason: FLUSH PICC Last Admin: 11/22/16 09:49 Dose: 10 ml Sodium Chloride (Saline Flush) 10 ml FLUSH ASDIRECTED PRN PRN Reason: Keep Vein Open Last Admin: 11/27/16 10:28 Dose: 10 ml Spironolactone (Aldactone) 25 mg PO DAILY [facility] Last Admin: 11/30/16 07:38 Dose: 25 mg Spironolactone (Aldactone) 25 mg PO DAILY [facility] Tamsulosin HCl (Flomax) 0.4 mg PO DAILY [facility] Last Admin: 11/30/16 07:39 Dose: 0.4 mg Vancomycin HCl (Pharmacy To Dose - Vancomycin) 1 dose .XX ASDIRECTED [facility] Warfarin Sodium (Coumadin) 5 mg PO DAILY [facility] Last Admin: 11/19/16 09:08 Dose: Not Given Warfarin Sodium (Coumadin) 2.5 mg PO DAILY [facility] Warfarin Sodium (Coumadin) 7.5 mg PO ONETIME ONE Stop: 11/14/16 10:01 Last Admin: 11/14/16 12:00 Dose: 7.5 mg Warfarin Sodium (Coumadin) 10 mg PO ONETIME ONE Stop: 11/15/16 16:01 Last Admin: 11/15/16 16:40 Dose: 10 mg Warfarin Sodium (Coumadin) 2.5 mg PO DAILY [facility] Last Admin: 11/20/16 08:40 Dose: 2.5 mg Warfarin Sodium (Coumadin) 2.5 mg PO DAILY@1200 [facility] Last Admin: 11/22/16 11:35 Dose: 2.5 mg Warfarin Sodium (Coumadin) 2.5 mg PO ONETIME ONE Stop: 11/22/16 11:46 Last Admin: 11/22/16 11:54 Dose: 2.5 mg Warfarin Sodium (Coumadin) 5 mg PO SuFr@1200 [facility] Stop: 11/25/16 12:01 Last Admin: 11/25/16 12:21 Dose: 5 mg Warfarin Sodium (Coumadin) 2.5 mg PO MoSa@[address] [place] [address] Stop: 11/26/16 12:01 Last Admin: 11/24/16 11:27 Dose: 2.5 mg Warfarin Sodium (Coumadin) 2.5 mg PO MOSA@1999 [facility] Warfarin Sodium (Coumadin) 2.5 mg PO MOWEFR@[address] [place] [address] Stop: 11/28/16 12:01 Warfarin Sodium (Coumadin) 2.5 mg PO MOWEFR@1999 [facility] Last Admin: 11/28/16 21:06 Dose: 2.5 mg Warfarin Sodium (Coumadin) 5 mg PO SuTuThSa@[address] [place] [address] Last Admin: 11/29/16 20:01 Dose: 5 mg *Q Meaningful Use (DIS) - VTE *Q VTE Criteria *Q: - Stroke *Q Stroke Criteria *Q: - AMI *Q AMI Criteria *Q:
== END 2016-11-30 10:00 | DRG 863 ==
LOC: VM.MS 12:14
PROVIDERS: ADMIT Family Medicine; ATTEND Family Medicine
DX: T81.4XXA Infection following a procedure, initial encounter (principal); R41.0 Disorientation, unspecified; R00.0 Tachycardia, unspecified; R50.9 Fever, unspecified; R45.1 Restlessness and agitation; E11.9 Type 2 diabetes mellitus without complications; E78.5 Hyperlipidemia, unspecified; F32.9 Major depressive disorder, single episode, unspecified; I10 Essential (primary) hypertension; N40.0 Benign prostatic hyperplasia without lower urinary tract symptoms; E66.01 Morbid (severe) obesity due to excess calories; F70 Mild intellectual disabilities; Z86.718 Personal history of other venous thrombosis and embolism; Z68.34 Body mass index [BMI] 34.0-34.9, adult; Z88.8 Allergy status to other drugs, medicaments and biological substances; Z79.899 Other long term (current) drug therapy
CPT/HCPCS: 36415; 71010; 74230; 80053; 80202; 82550; 82565; 82962; 83605; 85025; 85610; 85652; 86140; 87040; 87804; 92526-GN; 92610-GN; 92611-GN; 93005; 94760; 97110-GP; 97116-GP; 97162-GP; 97165-GO; 97530-GP; 97535-GO; A9270-GY; J0696; J1630; J1642; J1650; J1815-GY; J2060; J3370; J7040; J7050

== ENCOUNTER 2017-10-19 10:20 | Emergency (ER) | payer MEDICARE, MEDICAID ==
[2017-10-19] MEDS ORDERED: Sodium Chloride 0.9% 10 ML Syringe FLUSH PRN (10:32)
[2017-10-19] MEDS ORDERED: Sodium Chloride 0.9% 1,000 ML IV ONE (10:34)
--- NOTE | 2017-10-19 10:35 | EDM.PDOC ---
ED HPI GENERAL MEDICAL PROBLEM - General Chief Complaint: General Stated Complaint: 2 FALLS Time Seen by Provider: 10/19/17 10:25 Source of Information: Reports: Patient, Other History Limitations: Reports: No Limitations - History of Present Illness INITIAL COMMENTS - FREE TEXT/NARRATIVE: Patient's brought into the emergency department by another employee from the prison. Stating that the patient had fallen just prior to coming to the emergency department related low blood pressure. Sounds like this has been going on for the last few days and his PCP has been in contact to help control of the hypotensive issues. Patient states that he was standing up to walk across his room when he became dizzy and lightheaded and fell ended up hitting the right side of his head and his lower back was causing pain. Patient's also been noted to have a fever the last few days of 100. He is short of breath on exertion. 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 (right side of head) upper back Pain Score (Numeric/FACES): 10 - Related Data Allergies Allergy/AdvReac Type Severity Reaction Status Date / Time aspirin Allergy Other Verified 10/19/17 10:45 NSAIDS (Non-Steroidal Allergy Other Verified 10/19/17 10:45 Anti-Inflamma Home Meds: Home Meds Potassium Chloride 20 meq PO BID 08/28/16 [History] Bisacodyl [Dulcolax] 5 mg PO DAILY PRN 10/13/16 [History] Calcium Citrate/Vitamin D3 [Calcium Citrate - Vit D Caplet] 1 each PO BIDMEALS 10/13/16 [History] ClonazePAM [KlonoPIN] 1 mg PO TID 10/13/16 [History] Furosemide [Lasix] 80 mg PO DAILY 10/13/16 [History] Insulin Detemir [Levemir Flextouch] 12 unit SQ DAILY 10/13/16 [History] Liraglutide [Victoza] 0.6 mg SUBCUT BEDTIME 10/13/16 [History] Losartan [Cozaar] 100 mg PO DAILY 10/13/16 [History] Metoprolol Succinate [Toprol XL] 50 mg PO DAILY 10/13/16 [History] Multivitamin [Daily Doc] 1 each PO DAILY 10/13/16 [History] [place]-3/DHA/Epa/Fish Oil [[place] 3 500 Softgel] 1,000 mg PO BID 10/13/16 [History ] Spironolactone [Aldactone] 25 mg PO DAILY 10/13/16 [History] risperiDONE [Risperdal] 3 mg PO BEDTIME 10/13/16 [History] Insulin Aspart [NovoLOG] 4 unit SUBCUT TIDMEALS pen 11/30/16 [Rx] Lactulose [Cephulac] 20 gm PO DAILY cup 11/30/16 [Rx] Phytonadione [Vitamin K] 100 mcg PO DAILY tablet 11/30/16 [Rx] atorvaSTATin [Lipitor] 10 mg PO BEDTIME tablet 11/30/16 [Rx] Acetaminophen [Tylenol] 650 mg PO Q4H PRN 10/19/17 [History] Calcium Carbonate [Tums] 1,000 mg PO Q6H PRN 10/19/17 [History] Doxycycline [Doxycycline Hyclate] 100 mg PO DAILY 10/19/17 [History] Hydrocodone/Acetaminophen [[place] 10-325 Tablet] 1 each PO Q6H PRN 10/19/17 [ History] Loperamide HCl [Anti-Diarrheal] 2 mg PO Q2H PRN 10/19/17 [History] Melatonin 6 mg PO BEDTIME 10/19/17 [History] Metolazone 5 mg PO DAILY 10/19/17 [History] Sertraline HCl 100 mg PO DAILY 10/19/17 [History] guaiFENesin [Robitussin] 10 ml PO Q4H PRN 10/19/17 [History] Past Medical History Cardiovascular History: Reports: High Cholesterol, Hypertension Gastrointestinal History: Reports: Colon Polyp, Fecal Incontinence Genitourinary History: Reports: BPH Musculoskeletal History: Reports: Osteoarthritis, Other (See Below) Other Musculoskeletal History: chronic, RLS Neurological History: Reports: Other (See Below) Other Neuro History: mild intellectual disabilities Psychiatric History: Reports: Addiction, Depression Other Psychiatric History: alcoholism, avoidant personality disorder Endocrine/Metabolic History: Reports: Diabetes, Type II, Obesity/BMI 30+ Hematologic History: Reports: Other (See Below) Other Hematologic History: hyponatremia Dermatologic History: Reports: Venous Stasis Dermatitis Other Dermatologic History: Xerosis cutis - Past Surgical History GI Surgical History: Reports: Hernia Repair/Other Musculoskeletal Surgical History: Reports: Other (See Below) Social & Family History - Family History Family Medical History: Noncontributory - Tobacco Use Smoking Status *Q: Unknown Ever Smoked Second Hand Smoke Exposure: No - Caffeine Use Caffeine Use: Reports: None - Recreational Drug Use Recreational Drug Use: No - Living Situation & Occupation Living situation: Reports: Extended Care Facility ED ROS GENERAL - Review of Systems Review Of Systems: See Below Constitutional: Reports: No Symptoms HEENT: Reports: No Symptoms Respiratory: Reports: Shortness of Breath, Cough, Sputum Cardiovascular: Reports: No Symptoms GI/Abdominal: Reports: No Symptoms : Reports: No Symptoms Musculoskeletal: Reports: No Symptoms Skin: Reports: Other (abrasion right forehead ) Psychiatric: Reports: No Symptoms Hematologic/Lymphatic: Reports: No Symptoms Immunologic: Reports: No Symptoms ED EXAM, GENERAL - Physical Exam Exam: See Below Exam Limited By: No Limitations General Appearance: Alert, WD/WN, No Apparent Distress Head: Atraumatic, Normocephalic Neck: Normal Inspection, Supple, Non-Tender, Full Range of Motion Respiratory/Chest: Chest Non-Tender, Decreased Breath Sounds, Crackles. No: Rales, Rhonchi, Stridor, Retractions, Splinting, Prolonged Expiration Cardiovascular: Systolic Murmur GI/Abdominal: Normal Bowel Sounds, Soft, Non-Tender, No Distention, No Abnormal Bruit, No Mass Back Exam: Decreased Range of Motion, Vertebral Tenderness (lumbar region ) Extremities: Pedal Edema. No: Arm Pain, Sima's Sign, Leg Pain, Increased Warmth, Mottled, Pallor, Redness Neurological: Alert, Oriented, CN II-XII Intact, Normal Cognition Skin Exam: Warm, Dry, Intact, Normal Color Course - Vital Signs Last Recorded V/S: Last Vital Signs Temp 36.5 C 10/19/17 10:29 Pulse 74 10/19/17 12:48 Resp 16 10/19/17 12:48 BP 119/50 L 10/19/17 12:48 Pulse Ox 98 10/19/17 12:48 - Orders/Labs/Meds Labs: Laboratory Tests 10/19/17 10/19/17 10/19/17 Range/Units 10:52 10:52 10:52 WBC 7.0 (4.0-10.0) x10^3/uL RBC 3.34 L (4.5-6.0) x10^6/uL Hgb 10.7 L (14.0-18.0) g/dL Hct 32.4 L (40.0-52.0) % MCV 97.0 H (78.0-93.0) fL MCH 32.0 (26.0-32.0) pg MCHC 33.0 (32.0-36.0) g/dL RDW Coeff of Rupal 14.7 (10.0-15.0) % Plt Count 185 D (130-400) x10^3/uL Neut % (Auto) 69.9 (50.0-80.0) % Lymph % (Auto) 18.4 L (25.0-50.0) % [place] % (Auto) 9.7 (2.0-11.0) % Eos % (Auto) 1.7 (0.0-4.0) % Baso % (Auto) 0.3 (0.2-1.2) % PT (9.8-11.8) SEC INR (2.0-3.5) Sodium 140 (136-145) mmol/L Potassium 2.9 L* (3.5-5.1) mmol/L Chloride 103 (98-107) mmol/L Carbon Dioxide 23 (21-32) mmol/L BUN 35 H (7-18) mg/dL Creatinine 1.3 (0.70-1.30) mg/dL Est Cr Clr Drug Dosing 56.65 mL/min Estimated GFR (MDRD) 55 Glucose 146 H (74-106) mg/dL Lactic Acid 2.2 H* (0.4-2.0) mmol/L Calcium 7.7 L (8.5-10.1) mg/dL Corrected Calcium 8.74 (8.5-10.1) mg/dL Total Bilirubin 0.4 (0.2-1.0) mg/dL AST 21 (15-37) U/L ALT 19 (16-63) U/L Alkaline Phosphatase 99 (46-116) U/L NT-Pro-B Natriuret Pep 320 H (<=125) pg/mL Total Protein 6.2 L (6.4-8.2) g/dL Albumin 2.7 L (3.4-5.0) g/dL Globulin 3.5 Albumin/Globulin Ratio 0.77 10/19/17 Range/Units 10:52 WBC (4.0-10.0) x10^3/uL RBC (4.5-6.0) x10^6/uL Hgb (14.0-18.0) g/dL Hct (40.0-52.0) % MCV (78.0-93.0) fL MCH (26.0-32.0) pg MCHC (32.0-36.0) g/dL RDW Coeff of Urpal (10.0-15.0) % Plt Count (130-400) x10^3/uL Neut % (Auto) (50.0-80.0) % Lymph % (Auto) (25.0-50.0) % [place] % (Auto) (2.0-11.0) % Eos % (Auto) (0.0-4.0) % Baso % (Auto) (0.2-1.2) % PT 11.1 D (9.8-11.8) SEC INR 1.0 L (2.0-3.5) Sodium (136-145) mmol/L Potassium (3.5-5.1) mmol/L Chloride (98-107) mmol/L Carbon Dioxide (21-32) mmol/L BUN (7-18) mg/dL Creatinine (0.70-1.30) mg/dL Est Cr Clr Drug Dosing mL/min Estimated GFR (MDRD) Glucose (74-106) mg/dL Lactic Acid (0.4-2.0) mmol/L Calcium (8.5-10.1) mg/dL Corrected Calcium (8.5-10.1) mg/dL Total Bilirubin (0.2-1.0) mg/dL AST (15-37) U/L ALT (16-63) U/L Alkaline Phosphatase (46-116) U/L NT-Pro-B Natriuret Pep (<=125) pg/mL Total Protein (6.4-8.2) g/dL Albumin (3.4-5.0) g/dL Globulin Albumin/Globulin Ratio Meds: Medications Discontinued Medications Generic Name Dose Route Start Last Admin Trade Name Freq PRN Reason Stop Dose Admin Ceftriaxone Sodium 1 gm 10/19/17 12:59 Rocephin IM 10/19/17 13:00 ONETIME ONE Ceftriaxone Sodium 1 gm 10/19/17 13:15 10/19/17 13:11 Rocephin IVPUSH 1 gm DAILY SIGRID Administration Fentanyl 50 mcg 10/19/17 12:01 10/19/17 12:29 Sublimaze IVPUSH 50 mcg ASDIRECTED PRN Administration Pain Sodium Chloride 1,000 mls @ 250 mls/hr 10/19/17 10:34 10/19/17 11:45 Normal Saline IV 10/19/17 14:33 250 mls/hr ONETIME ONE Administration Iopamidol 100 ml 10/19/17 11:55 10/19/17 14:43 Isovue-300 (61%) IVPUSH 10/19/17 11:56 100 ml ONETIME ONE Administration Potassium Chloride 20 meq 10/19/17 12:38 10/19/17 12:45 Potassium Chloride Solution PO 10/19/17 12:39 20 meq ONETIME ONE Administration Sodium Chloride 10 ml 10/19/17 10:32 Saline Flush FLUSH ASDIRECTED PRN Keep Vein Open - Radiology Interpretation Free Text/Narrative:: CT results: Chest possible Right Hilar mass. CT with contrast ordered. Head CT-negative Lumbar CT- old T12-L1 fracture present - Re-Assessments/Exams Free Text/Narrative Re-Assessment/Exam: 10/19/17 12:44 contact made with his Guardian Millie Holt who states the pt is a DNR/ DNI. Discussed findings from exam and test. Pt and guardian agree they would like the pt to be hydrated and pain controlled but would not like further workup of Chest mass. They would also like to be [facility] the [facility]. Did discuss the low potassium and hydration and they both feel going back to the prison is what they would like. Did discuss that we will treat the low potassium in the ER and provide hydration but further discussion and treatment options will need to be discussed saturday with PCP if moving to comfort cares is the route they are looking at. Departure - Departure Time of Disposition: 14:00 Disposition: DC[facility] Condition: Fair Clinical Impression: Hyponatremia, Weakness Back pain Qualifiers: Back pain location: low back pain Chronicity: chronic Back pain laterality: midline Sciatica presence: without sciatica Qualified Code(s): M54.5 - Low back pain Pneumonia Qualifiers: Pneumonia type: due to unspecified organism Laterality: right Lung location: lower lobe of lung Qualified Code(s): J18.1 - Lobar pneumonia, unspecified organism - Discharge Information Instructions: Chronic Back Pain, Community-Acquired Pneumonia, Adult Referrals: Joao Kim MD [Primary Care Provider] - Forms: ED Department Discharge
[2017-10-19] MEDS ORDERED: Iopamidol 612 MG/ML 100 ML Bottle IVPUSH ONE (11:55)
[2017-10-19] MEDS ORDERED: fentaNYL 100 MCG/2 ML SDV IVPUSH PRN (12:01)
[2017-10-19] MEDS ORDERED: Potassium Chloride 10% 20 MEQ/15 ML Soln 15 ML UD Cup PO ONE (12:38)
[2017-10-19 12:50] VITALS: BP 119/50
[2017-10-19] MEDS ORDERED: cefTRIAXone 1 GM Vial IM ONE (12:59)
[2017-10-19] MEDS ORDERED: cefTRIAXone 1 GM Vial IVPUSH SCH (13:15)
== END 2017-10-19 13:30 ==
LOC: VM.ED 10:20
DX: J18.9 Pneumonia, unspecified organism (principal); E87.1 Hypo-osmolality and hyponatremia; M54.5 Low back pain; E78.00 Pure hypercholesterolemia, unspecified; I10 Essential (primary) hypertension; E11.9 Type 2 diabetes mellitus without complications; Z88.6 Allergy status to analgesic agent; Z79.4 Long term (current) use of insulin; Z79.899 Other long term (current) drug therapy
CPT/HCPCS: 36415; 70450; 71045; 71260; 72131; 80053; 83605; 83880; 85025; 85610; 87804; 93005; 96361; 96374; 96375; 99284; 99285; A9270; J0696; J3010; J7030; Q9967

== ENCOUNTER 2018-01-30 16:34 | Inpatient (IN) | payer MEDICARE, MEDICAID ==
[2018-01-30] MEDS ORDERED: Sodium Chloride 0.9% 10 ML Syringe FLUSH PRN (17:06)
[2018-01-30] MEDS ORDERED: Ondansetron 4 MG/2 ML SDV IV PRN (17:06)
[2018-01-30] MEDS: Lactated Ringers 1,000 ML IV SCH (17:28)
[2018-01-30] MEDS ORDERED: Bisacodyl 5 MG Tab PO PRN (19:21)
[2018-01-30] MEDS ORDERED: Loperamide 2 MG Cap PO PRN (19:21)
--- NOTE | 2018-01-30 19:43 | PCM.HP ---
H&P History of Present Illness - General Date of Service: 01/30/18 Admit Problem/Dx: Admission Diagnosis/Problem Admission Diagnosis/Problem Acute kidney injury Source of Information: Patient, [facility] Records - History of Present Illness Initial Comments - Free Text/Narative: 68 yo seen today in clinic for Lethargy. He had an increase in his Benzo in December for behaviors and has been having more difficulty with cares and transfers since. His Cr was 1 over a month ago and then 1.8 around 01/10 and today was 2.75 in clinic with BUN of 92. Bladder scan was low. He hasn't been incontinent. He has a hx of spinal fracture and then a wound infection after and is on doxycycline for life. Has not had any fevers and denies pain. History is limited from the patient. WBC was 11.9 but a couple weeks ago was 14.8. Blood cultures and UA was normal then on 01/10. Medical History: Type 2 diabetes since 06/26 Hx of DVT, on Coumadin until 12/03 Previous DX of hypertension, hyperlipidemia, osteoarthritis, morbid obesity, restless leg syndrome, depression, anxiety, benign prostatic hypertrophy, CKD 1 , cognitive impairment, hx of DVT, peripheral edema, dysphagia, mild to moderate aortic stenosis, EF 80 %. Surgical History: Colonoscopy with polypectomies 03/07 Hernia repair R Lumbar fusion for unstable fracture 10/01/16 Surgical debridement for wound infection 10/17/16 and 10/25/16 Family History: Had 4 brothers, 3 still living, one of those has diabetes type 2 and another has leukemia Social History: We only know that he had been in basic care in [facility] for a few years. Hx of alcohol dependence. Has a guardian. Onset of Symptoms: Reports: Gradual Duration of Symptoms: Reports: Day(s): - Related Data Allergies/Adverse Reactions: Allergies Allergy/AdvReac Type Severity Reaction Status Date / Time aspirin Allergy Other Verified 10/19/17 10:45 NSAIDS (Non-Steroidal Allergy Other Verified 10/19/17 10:45 Anti-Inflamma Home Medications: Home Meds Potassium Chloride 20 meq PO BID 08/28/16 [History] Bisacodyl [Dulcolax] 5 mg PO DAILY PRN 10/13/16 [History] Calcium Citrate/Vitamin D3 [Calcium Citrate - Vit D Caplet] 1 each PO BIDMEALS 10/13/16 [History] ClonazePAM [KlonoPIN] 2 mg PO BID 10/13/16 [History] Insulin Detemir [Levemir Flextouch] 12 unit SQ DAILY 10/13/16 [History] Liraglutide [Victoza] 0.6 mg SUBCUT BEDTIME 10/13/16 [History] Losartan [Cozaar] 100 mg PO DAILY 10/13/16 [History] Multivitamin [Daily Doc] 1 each PO DAILY 10/13/16 [History] [place]-3/DHA/Epa/Fish Oil [[place] 3 500 Softgel] 1,000 mg PO BID 10/13/16 [History ] Spironolactone [Aldactone] 50 mg PO DAILY 10/13/16 [History] risperiDONE [Risperdal] 3 mg PO BEDTIME 10/13/16 [History] Insulin Aspart [NovoLOG] 4 unit SUBCUT TIDMEALS pen 11/30/16 [Rx] Lactulose [Cephulac] 20 gm PO DAILY cup 11/30/16 [Rx] Phytonadione [Vitamin K] 100 mcg PO DAILY tablet 11/30/16 [Rx] atorvaSTATin [Lipitor] 10 mg PO BEDTIME tablet 11/30/16 [Rx] Acetaminophen [Tylenol] 650 mg PO Q4H PRN 10/19/17 [History] Doxycycline [Doxycycline Hyclate] 100 mg PO DAILY 10/19/17 [History] Loperamide HCl [Anti-Diarrheal] 2 mg PO Q2H PRN 10/19/17 [History] Melatonin 6 mg PO BEDTIME 10/19/17 [History] Metolazone 2.5 mg PO DAILY 10/19/17 [History] Sertraline HCl 100 mg PO DAILY 10/19/17 [History] Bumetanide [Bumex] 2 mg PO BID 01/30/18 [History] Past Medical History Cardiovascular History: Reports: High Cholesterol, Hypertension Other Cardiovascular History: edema, venous thrombosis and embolism Gastrointestinal History: Reports: Colon Polyp, Fecal Incontinence Other Gastrointestinal History: dysphagia, oropharyngeal Genitourinary History: Reports: BPH Musculoskeletal History: Reports: Osteoarthritis, Other (See Below) Other Musculoskeletal History: chronic, RLS Neurological History: Reports: Other (See Below) Other Neuro History: mild intellectual disabilities Psychiatric History: Reports: Addiction, Depression Other Psychiatric History: alcoholism, avoidant personality disorder Endocrine/Metabolic History: Reports: Diabetes, Type II, Obesity/BMI 30+ Hematologic History: Reports: Other (See Below) Other Hematologic History: hyponatremia Dermatologic History: Reports: Venous Stasis Dermatitis Other Dermatologic History: Xerosis cutis - Past Surgical History GI Surgical History: Reports: Hernia Repair/Other Musculoskeletal Surgical History: Reports: Other (See Below) Social & Family History - Family History Family Medical History: Noncontributory - Caffeine Use Caffeine Use: Reports: None - Living Situation & Occupation Living situation: Reports: Extended Care Facility H&P Review of Systems - Review of Systems: Review Of Systems: Unable To Obtain Exam - Exam Exam: See Below - Vital Signs Vital Signs: Last Vital Signs Temp 98.6 F 01/30/18 17:30 Pulse 100 01/30/18 17:30 Resp 16 01/30/18 17:30 BP 107/55 L 01/30/18 17:30 Pulse Ox 100 01/30/18 17:30 - Exam Quality Assessment: Supplemental Oxygen General: Lethargic HEENT: Conjunctiva Clear, EOMI Neck: Supple, Trachea Midline Lungs: Clear to Auscultation, Normal Respiratory Effort Cardiovascular: Regular Rate, Regular Rhythm, Systolic Murmur GI/Abdominal Exam: Normal Bowel Sounds, Soft, No Distention, No Mass, Tender. No: Guarding, Rebound, Mass Back Exam: Normal Inspection Extremities: Pedal Edema (1 + with klaudia wraps in place) Peripheral Pulses: 2+: Carotid (L), Carotid (R) Skin: Warm, Dry, Intact Neurological: No: Normal Gait Neuro Extensive - Mental Status: Slow Response to Commands. No: Oriented x3, Normal Cognition, Memory Intact Psychiatric: Normal Affect, Labile Mood - Patient Data Lab Results Last 24 hrs: Glucose 133, BUN 92, CR 2.75, NA 140, K 3.9, Chl 100, CO2 22, Ca 10.7, AST 98, ALT 35, Bili 0.4, GFR 28 WBC 11.9, HGB 11.9, Plt 301 - Problem List (1) ARF (acute renal failure) SNOMED Code(s): 04595925 ICD Code: N17.9 - ACUTE KIDNEY FAILURE, UNSPECIFIED Status: Acute Priority: High Current Visit: Yes Qualifiers: Acute renal failure type: unspecified Qualified Code(s): N17.9 - Acute kidney failure, unspecified (2) Hypercalcemia SNOMED Code(s): 25074525 ICD Code: E83.52 - HYPERCALCEMIA Status: Acute Priority: High Current Visit: Yes Problem List Initiated/Reviewed/Updated: Yes Orders Last 24hrs: Active Orders 24 hr Category Date Time Status Patient Status [ADT] Routine ADT 01/30/18 16:37 Active Accu Check [Blood Glucose Check, Bedside] [RC] Care 01/30/18 18:02 Active QIDACANDBED Bladder Scan [RC] Q8H Care 01/30/18 19:28 Active Intake and Output [RC] 06,18 Care 01/30/18 17:09 Active Oxygen Therapy [RC] .PRN Care 01/30/18 17:07 Active Up With Assistance [RC] ASDIRECTED Care 01/30/18 17:06 Active VTE/DVT Education [RC] .PRN Care 01/30/18 17:07 Active Vital Signs [RC] 06,10,14,18,22,02 Care 01/30/18 17:07 Active PT Evaluation and Treatment [CONS] Routine Cons 01/30/18 18:58 Active 2 Gram Sodium Diet [DIET] Diet 01/30/18 Dinner Active CULTURE MRSA SURVEY [RM] Routine Lab 01/30/18 17:00 Received UA W/MICROSCOPIC [URIN] Routine Lab 01/30/18 17:12 Ordered Acetaminophen [Tylenol] Med 01/30/18 19:21 Ordered 650 mg PO Q4H PRN Bisacodyl [Dulcolax] Med 01/30/18 19:21 Ordered 5 mg PO DAILY PRN Doxycycline [Vibramycin] Med 01/31/18 08:00 Ordered 100 mg PO DAILY Insulin Aspart [NovoLOG] Med 01/31/18 08:00 Ordered 4 unit SUBCUT TIDMEALS Insulin Detemir [Levemir] Med 01/31/18 08:00 Ordered 12 unit SUBCUT DAILY Lactated Ringers [Ringers, Lactated] 1,000 ml Med 01/30/18 17:15 Active IV ASDIRECTED Lactulose [Cephulac] Med 01/31/18 08:00 Ordered 20 gm PO DAILY Liraglutide [Victoza] Med 01/30/18 20:00 Ordered 0.6 mg SUBCUT BEDTIME Loperamide [Imodium] Med 01/30/18 19:21 Ordered 2 mg PO Q2H PRN Melatonin Med 01/30/18 20:00 Ordered 6 mg PO BEDTIME Ondansetron [Zofran] Med 01/30/18 17:06 Active 4 mg IV Q4H PRN Phytonadione [Vitamin K] Med 01/31/18 08:00 Ordered 100 mcg PO DAILY Sertraline [Zoloft] Med 01/31/18 08:00 Ordered 100 mg PO DAILY Sodium Chloride 0.9% [Saline Flush] Med 01/30/18 17:06 Active 10 ml FLUSH ASDIRECTED PRN atorvaSTATin [Lipitor] Med 01/30/18 20:00 Ordered 10 mg PO BEDTIME risperiDONE [Risperdal] Med 01/30/18 20:00 Ordered 3 mg PO BEDTIME Peripheral IV Insertion Adult [OM.PC] Routine Oth 01/30/18 17:06 Ordered Resuscitation Status Routine Resus Stat 01/30/18 17:06 Ordered Medication Orders Acetaminophen (Tylenol) 650 mg PO Q4H PRN PRN Reason: Pain Atorvastatin Calcium (Lipitor) 10 mg PO BEDTIME SIGRID Bisacodyl (Dulcolax) 5 mg PO DAILY PRN PRN Reason: Constipation Doxycycline Hyclate (Vibramycin) 100 mg PO DAILY SIGRID Lactated Ringer's (Ringers, Lactated) 1,000 mls @ 125 mls/hr IV ASDIRECTED SIGRID Last Admin: 01/30/18 17:28 Dose: 125 mls/hr Insulin Aspart (Novolog) 4 unit SUBCUT TIDMEALS [facility] Insulin Detemir (Levemir) 12 unit SUBCUT DAILY [facility] Lactulose (Cephulac) 20 gm PO DAILY SIGRID Loperamide HCl (Imodium) 2 mg PO Q2H PRN PRN Reason: Diarrhea Melatonin (Melatonin) 6 mg PO BEDTIME SIGRID Non-Formulary Medication (Liraglutide [Victoza]) 0.6 mg SUBCUT BEDTIME SIGRID Non-Formulary Medication (Risperidone [Risperdal]) 3 mg PO BEDTIME SIGRID Ondansetron HCl (Zofran) 4 mg IV Q4H PRN PRN Reason: Nausea/Vomiting Phytonadione (Vitamin K) 100 mcg PO DAILY SIGRID Sertraline HCl (Zoloft) 100 mg PO DAILY SIGRID Sodium Chloride (Saline Flush) 10 ml FLUSH ASDIRECTED PRN PRN Reason: Keep Vein Open Assessment/Plan Comment:: 1. Acute on Chronic renal failure but baseline in December prior to 01/10 was around 1 2. Hypercalcemia probably due to dehydration 3. Lethargy and poor oral intake likely due to recent increase in Klonopin 4. Diabetes 2 controlled with kidney complications on insulin longterm 5. Essential HTN hold Losartan due to ARF 6. Hx of spinal surgery and infection on Doxycycline 7. Mild anemia 8. Cognitive impairment with behavior disturbance, depression and anxiety 9. Morbid obesity with chronic edema 10. Mild to moderate aortic stenosis, EF 80 % Plan: Admit for IV fluids Repeat labs in AM Bladder scans Check UA Hold diuretics and ARB Decrease Klonopin Code 3 Heparin for dvt prophylaxis
[2018-01-30] MEDS ORDERED: ClonazePAM 0.5 MG Tab PO PRN (20:05)
[2018-01-30] MEDS: Melatonin 3 MG Tab PO SCH (20:50)
[2018-01-30] MEDS: atorvaSTATin 10 MG Tab PO SCH (20:51)
[2018-01-30] MEDS: risperiDONE 1 MG Tab PO SCH (20:55)
[2018-01-31] MEDS: Lactated Ringers 1,000 ML IV SCH ×3 (01:28→18:06)
[2018-01-31 07:26] LABS: CHLORIDE,CL 107 mmol/L (98-107); SODIUM,NA 146 mmol/L (136-145)
[2018-01-31] MEDS: Phytonadione 100 MCG Tab PO SCH (08:01)
[2018-01-31] MEDS: Lactulose Soln 10 GM/15 ML 30 ML UD Cup PO SCH (08:01)
[2018-01-31] MEDS: Heparin Sodium 5,000 Units/ML Vial SUBCUT SCH ×2 (08:01→20:29)
[2018-01-31] MEDS: Doxycycline 100 MG Cap PO SCH (08:01)
[2018-01-31] MEDS: Sertraline 100 MG Tab PO SCH (08:01)
[2018-01-31] MEDS: ClonazePAM 0.5 MG Tab PO SCH ×2 (08:01→20:30)
[2018-01-31] MEDS: Acetaminophen 325 MG Tab PO PRN (08:01)
[2018-01-31] MEDS: Insulin Detemir 100 Units/ML 3 ML Pen SUBCUT SCH (08:06)
[2018-01-31] MEDS: Insulin Aspart 100 Units/ML 3 ML Pen SUBCUT SCH ×3 (08:06→19:15)
[2018-01-31] MEDS: LIRAGLUTIDE 0.6 MG SUBCUT SCH ×2 (11:57→21:52)
[2018-01-31] MEDS: Potassium Chloride 10 MEQ Tab.ER PO SCH (12:55)
--- NOTE | 2018-01-31 19:12 | PN ---
Progress Note for ANTONINO HARRINGTON Date: 01/31/2018 Room #: VM.218 SUBJECTIVE: Hospital day #2 on a 68-year-old, admitted with acute renal failure yesterday. Initial bladder scans were showing nothing, overnight he was up to 400. He had a straight cath for UA which was normal. This morning, he is over 800. He has had history of urinary retention when he was previously admitted after a spine surgery. He states he is a little short of breath this morning, but no chest pain, no cough. He denies any abdominal pain. He needs to go to the bathroom, but was unable to void per the nurse on the first attempt while sitting in the chair. He states his butt is a little bit sore, no sores there per nursing They are having to use a ceiling lift. He has not had any significant leg swelling, but he has been on Bumex, metolazone, and Aldactone in the past for edema. Per his Primary Care, when diuretics are decreased, swelling gets worse; when they are increased, he has renal problems. OBJECTIVE: Vital Signs: He has been afebrile. Temperature 97.2; pulse 69; blood pressure 100/56; respiratory rate 18; and O2 94% on room air, repeat 97 on room air. General: He is in no acute distress. Heart: Regular rate and rhythm with murmur noted. Chest: Lung sounds are clear to auscultation bilaterally without crackles or wheezes. Abdomen: Nondistended and nontender. Extremities: Warm and dry. He has Rafy wraps in place. There is just trace edema in his ankles. Mental Status: He is alert, but he is not really able to give me any time or date questions or tell me the name of the hospital, but he is able to answer questions appropriately with yes or no. LABORATORY DATA: Otherwise, lab work does show his hemoglobin to be 10.7, yesterday it was 11.9, this could be some hemodilution. His white count is normal at 9.4 and platelets 261. Sodium 146, potassium 3.4, chloride 107, and bicarb 28. BUN improved from over 90 to 89, creatinine down to 2.3 from 2.75. His baseline was around 1, but a few weeks ago, it was 1.8. Glucose was 126; calcium is 9.7, corrected 10.5; and bilirubin 0.6. AST, which was mildly elevated yesterday is still elevated at 102, ALT 38. CRP 5. Albumin 2.9. ASSESSMENT: 1. Acute on chronic renal failure due to volume depletion from diuretics, possibly poor oral intake due to sedation from medications given for anxiety and agitation. Due to mild SOB will hold off on increasing fluids his lung and his oxygen saturations are good I do not feel a CXR is warranted. 2. Lethargy due to increase in Klonopin, which took place in December. We have decreased it to 1 mg twice daily. 3. Hypercalcemia, improved, probably due to dehydration. We will continue monitoring. 4. Type 2 diabetes, well controlled. He has kidney complications and is on long-term insulin. We will continue q.i.d. Accu-Cheks. Blood sugar was 125 last evening. 5. Urinary retention probably due to benign prostatic hyperplasia. We will place a Dunaway for strict in's and out's given his acute renal failure. 6. Essential hypertension. Losartan is on hold. Blood pressures are actually running lower. We will continue to monitor closely. 7. Mild to moderate aortic stenosis. 8. Morbid obesity with chronic edema. Ejection fraction is 80%. 9. Cognitive impairment with behavioral disturbance, depression, and anxiety. He will continue his home medications which include Risperdal, Zoloft, and decreased doses of Klonopin. 10.Deep vein thrombosis prophylaxis. He is on heparin. He has had a previous deep vein thrombosis by report. 11.Mild anemia. We will continue to monitor. PLAN: At this point, we will continue IV fluids. We will repeat lab work in the morning. We will place a Dunaway. Dr. Dillard to follow over the weekend unless the patient is stable to be returned back to the detention, but anticipate he will need at least one more night of acute stay. He is on doxycycline chronically for his history of spinal surgery with infection. No changes have been made there. Code 3. MKA: 01/31/2018 17:21:45 MODL: 01/31/2018 18:38:19 /[id number] MTDD
[2018-01-31] MEDS: risperiDONE 1 MG Tab PO SCH (20:29)
[2018-01-31] MEDS: Melatonin 3 MG Tab PO SCH (20:30)
[2018-01-31] MEDS: atorvaSTATin 10 MG Tab PO SCH (20:30)
[2018-02-01] MEDS: Lactated Ringers 1,000 ML IV SCH (02:00)
[2018-02-01] MEDS: Potassium Chloride 10 MEQ Tab.ER PO SCH (08:18)
[2018-02-01] MEDS: Insulin Aspart 100 Units/ML 3 ML Pen SUBCUT SCH ×3 (08:18→18:00)
[2018-02-01] MEDS: Insulin Detemir 100 Units/ML 3 ML Pen SUBCUT SCH (08:18)
[2018-02-01] MEDS: Sertraline 100 MG Tab PO SCH (08:18)
[2018-02-01] MEDS: Doxycycline 100 MG Cap PO SCH (08:18)
[2018-02-01] MEDS: Phytonadione 100 MCG Tab PO SCH (08:18)
[2018-02-01] MEDS: Lactulose Soln 10 GM/15 ML 30 ML UD Cup PO SCH (08:18)
[2018-02-01] MEDS: ClonazePAM 0.5 MG Tab PO SCH ×2 (08:18→21:03)
[2018-02-01] MEDS: Heparin Sodium 5,000 Units/ML Vial SUBCUT SCH ×2 (08:18→21:02)
--- NOTE | 2018-02-01 09:38 | PCM.PN ---
- General Info Date of Service: 02/01/18 Subjective Update: 68 yo male on hospital day #3 for acute on chronic renal failure. An indwelling urinary catheter was placed yesterday due to urinary retention and need for strict I/O. Mr. Tan reports he is feeling fine today. He denies any shortness of breath. He has not noticed if his legs are swollen. He denies any chest pain, cough, fever, or chills. He is slightly nauseous but has not vomited and denies any abdominal pain or bowel issues. - Review of Systems General: Reports: No Symptoms HEENT: Reports: No Symptoms Pulmonary: Reports: No Symptoms Cardiovascular: Reports: No Symptoms Gastrointestinal: Reports: No Symptoms Genitourinary: Reports: No Symptoms Musculoskeletal: Reports: No Symptoms Skin: Reports: No Symptoms - Patient Data Vitals - Most Recent: Last Vital Signs Temp 36.8 C 02/01/18 06:00 Pulse 58 L 02/01/18 06:00 Resp 18 02/01/18 06:00 BP 136/60 02/01/18 06:00 Pulse Ox 97 02/01/18 06:00 Weight - Most Recent: 128.457 kg I&O - Last 24 Hours: Intake & Output 01/31/18 02/01/18 02/01/18 22:59 06:59 14:59 Intake Total 2789 4433 360 Output Total 750 1950 Balance 2039 5153 360 Lab Results Last 24 Hours: Laboratory Results - last 24 hr 01/31/18 01/31/18 01/31/18 Range/Units 03:00 17:23 21:55 WBC (4.0-10.0) x10^3/uL RBC (4.5-6.0) x10^6/uL Hgb (14.0-18.0) g/dL Hct (40.0-52.0) % MCV (78.0-93.0) fL MCH (26.0-32.0) pg MCHC (32.0-36.0) g/dL RDW Coeff of Rupal (10.0-15.0) % Plt Count (130-400) x10^3/uL Neut % (Auto) (50.0-80.0) % Lymph % (Auto) (25.0-50.0) % Phelps % (Auto) (2.0-11.0) % Eos % (Auto) (0.0-4.0) % Baso % (Auto) (0.2-1.2) % Sodium (136-145) mmol/L Potassium (3.5-5.1) mmol/L Chloride (98-107) mmol/L Carbon Dioxide (21-32) mmol/L Anion Gap (10-20) mmol/L BUN (7-18) mg/dL Creatinine (0.70-1.30) mg/dL Est Cr Clr Drug Dosing mL/min Estimated GFR (MDRD) Glucose (74-106) mg/dL POC Glucose 116 H 198 H (74-106) mg/dL Calcium (8.5-10.1) mg/dL Corrected Calcium (8.5-10.1) mg/dL Magnesium (1.8-2.4) mg/dL Total Bilirubin (0.2-1.0) mg/dL AST (15-37) U/L ALT (16-63) U/L Alkaline Phosphatase (46-116) U/L Total Protein (6.4-8.2) g/dL Albumin (3.4-5.0) g/dL Globulin Albumin/Globulin Ratio Urine Color Yellow (YELLOW) Urine Appearance Clear (CLEAR) Urine pH 5.0 (5.0-8.0) Ur Specific [place] 1.010 Urine Protein Negative (NEGATIVE) mg/dL Urine Glucose (UA) Negative (NEGATIVE) mg/dL Urine Ketones Negative (NEGATIVE) mg/dL Urine Occult Blood Negative (NEGATIVE) Urine Nitrite Negative (NEGATIVE) Urine Bilirubin Negative (NEGATIVE) Urine Urobilinogen 0.2 (0.2) EU/dL Ur Leukocyte Esterase Negative (NEGATIVE) Urine RBC 0-5 (NOT SEEN) /HPF Urine WBC 0-5 (NOT SEEN) /HPF Ur Squamous Epith Cells Not seen (NEGATIVE) /HPF Urine Bacteria Rare (NEGATIVE) /HPF Urine Mucus Rare H (NEGATIVE) /LPF 02/01/18 02/01/18 02/01/18 Range/Units 06:41 07:09 07:09 WBC 7.6 (4.0-10.0) x10^3/uL RBC 3.26 L (4.5-6.0) x10^6/uL Hgb 10.3 L (14.0-18.0) g/dL Hct 32.0 L (40.0-52.0) % MCV 98.2 H (78.0-93.0) fL MCH 31.6 (26.0-32.0) pg MCHC 32.2 (32.0-36.0) g/dL RDW Coeff of Rupal 13.8 (10.0-15.0) % Plt Count 243 (130-400) x10^3/uL Neut % (Auto) 61.2 (50.0-80.0) % Lymph % (Auto) 25.3 (25.0-50.0) % Phelps % (Auto) 7.2 (2.0-11.0) % Eos % (Auto) 5.8 H (0.0-4.0) % Baso % (Auto) 0.5 (0.2-1.2) % Sodium 145 (136-145) mmol/L Potassium 3.2 L (3.5-5.1) mmol/L Chloride 107 (98-107) mmol/L Carbon Dioxide 26 (21-32) mmol/L Anion Gap 15.2 (10-20) mmol/L BUN 58 H D (7-18) mg/dL Creatinine 1.4 H (0.70-1.30) mg/dL Est Cr Clr Drug Dosing 51.90 mL/min Estimated GFR (MDRD) 51 Glucose 131 H (74-106) mg/dL POC Glucose 162 H (74-106) mg/dL Calcium 8.7 (8.5-10.1) mg/dL Corrected Calcium 9.90 (8.5-10.1) mg/dL Magnesium (1.8-2.4) mg/dL Total Bilirubin 0.5 (0.2-1.0) mg/dL AST 54 H (15-37) U/L ALT 30 (16-63) U/L Alkaline Phosphatase 90 (46-116) U/L Total Protein 6.2 L (6.4-8.2) g/dL Albumin 2.5 L (3.4-5.0) g/dL Globulin 3.7 Albumin/Globulin Ratio 0.68 Urine Color (YELLOW) Urine Appearance (CLEAR) Urine pH (5.0-8.0) Ur Specific [place] Urine Protein (NEGATIVE) mg/dL Urine Glucose (UA) (NEGATIVE) mg/dL Urine Ketones (NEGATIVE) mg/dL Urine Occult Blood (NEGATIVE) Urine Nitrite (NEGATIVE) Urine Bilirubin (NEGATIVE) Urine Urobilinogen (0.2) EU/dL Ur Leukocyte Esterase (NEGATIVE) Urine RBC (NOT SEEN) /HPF Urine WBC (NOT SEEN) /HPF Ur Squamous Epith Cells (NEGATIVE) /HPF Urine Bacteria (NEGATIVE) /HPF Urine Mucus (NEGATIVE) /LPF 02/01/18 Range/Units 07:09 WBC (4.0-10.0) x10^3/uL RBC (4.5-6.0) x10^6/uL Hgb (14.0-18.0) g/dL Hct (40.0-52.0) % MCV (78.0-93.0) fL MCH (26.0-32.0) pg MCHC (32.0-36.0) g/dL RDW Coeff of Rupal (10.0-15.0) % Plt Count (130-400) x10^3/uL Neut % (Auto) (50.0-80.0) % Lymph % (Auto) (25.0-50.0) % Phelps % (Auto) (2.0-11.0) % Eos % (Auto) (0.0-4.0) % Baso % (Auto) (0.2-1.2) % Sodium (136-145) mmol/L Potassium (3.5-5.1) mmol/L Chloride (98-107) mmol/L Carbon Dioxide (21-32) mmol/L Anion Gap (10-20) mmol/L BUN (7-18) mg/dL Creatinine (0.70-1.30) mg/dL Est Cr Clr Drug Dosing mL/min Estimated GFR (MDRD) Glucose (74-106) mg/dL POC Glucose (74-106) mg/dL Calcium (8.5-10.1) mg/dL Corrected Calcium (8.5-10.1) mg/dL Magnesium 1.7 L (1.8-2.4) mg/dL Total Bilirubin (0.2-1.0) mg/dL AST (15-37) U/L ALT (16-63) U/L Alkaline Phosphatase (46-116) U/L Total Protein (6.4-8.2) g/dL Albumin (3.4-5.0) g/dL Globulin Albumin/Globulin Ratio Urine Color (YELLOW) Urine Appearance (CLEAR) Urine pH (5.0-8.0) Ur Specific [place] Urine Protein (NEGATIVE) mg/dL Urine Glucose (UA) (NEGATIVE) mg/dL Urine Ketones (NEGATIVE) mg/dL Urine Occult Blood (NEGATIVE) Urine Nitrite (NEGATIVE) Urine Bilirubin (NEGATIVE) Urine Urobilinogen (0.2) EU/dL Ur Leukocyte Esterase (NEGATIVE) Urine RBC (NOT SEEN) /HPF Urine WBC (NOT SEEN) /HPF Ur Squamous Epith Cells (NEGATIVE) /HPF Urine Bacteria (NEGATIVE) /HPF Urine Mucus (NEGATIVE) /LPF [place] Results Last 24 Hours: Microbiology 01/30/18 17:00 MRSA Surveillance Culture - Final Nares, Unspecified NO MRSA ISOLATED Med Orders - Current: Current Medications Acetaminophen (Tylenol) 650 mg PO Q4H PRN PRN Reason: Pain Last Admin: 01/31/18 08:01 Dose: 650 mg Atorvastatin Calcium (Lipitor) 10 mg PO BEDTIME [facility] Last Admin: 01/31/18 20:30 Dose: 10 mg Bisacodyl (Dulcolax) 5 mg PO DAILY PRN PRN Reason: Constipation Last Admin: 01/30/18 20:51 Dose: 5 mg Clonazepam (Klonopin) 1 mg PO BID [facility] Last Admin: 02/01/18 08:18 Dose: 1 mg Clonazepam (Klonopin) 0.5 mg PO TID PRN PRN Reason: Anxiety Doxycycline Hyclate (Vibramycin) 100 mg PO DAILY [facility] Last Admin: 02/01/18 08:18 Dose: 100 mg Heparin Sodium (Porcine) (Heparin Sodium) 5,000 units SUBCUT Q12H [facility] Last Admin: 02/01/18 08:18 Dose: 5,000 units Insulin Aspart (Novolog) 4 unit SUBCUT TIDMEALS [facility] Last Admin: 02/01/18 08:18 Dose: 4 units Insulin Detemir (Levemir) 12 unit SUBCUT DAILY [facility] Last Admin: 02/01/18 08:18 Dose: 12 units Lactulose (Cephulac) 20 gm PO DAILY [facility] Last Admin: 02/01/18 08:18 Dose: 20 gm Loperamide HCl (Imodium) 2 mg PO Q2H PRN PRN Reason: Diarrhea Melatonin (Melatonin) 6 mg PO BEDTIME [facility] Last Admin: 01/31/18 20:30 Dose: 6 mg Liraglutide [Victoza ] 0.6 Mg (Own Supply ) 0.6 mg SUBCUT BEDTIME [facility] Last Admin: 01/31/18 21:52 Dose: Not Given Ondansetron HCl (Zofran) 4 mg IV Q4H PRN PRN Reason: Nausea/Vomiting Phytonadione (Vitamin K) 100 mcg PO DAILY [facility] Last Admin: 02/01/18 08:18 Dose: 100 mcg Potassium Chloride (Klor-Con 10) 20 meq PO WITHBREAKFAST [facility] Last Admin: 02/01/18 08:18 Dose: 20 meq Risperidone (Risperidal) 3 mg PO BEDTIME [facility] Last Admin: 01/31/18 20:29 Dose: 3 mg Sertraline HCl (Zoloft) 100 mg PO DAILY [facility] Last Admin: 02/01/18 08:18 Dose: 100 mg Sodium Chloride (Saline Flush) 10 ml FLUSH ASDIRECTED PRN PRN Reason: Keep Vein Open Discontinued Medications Lactated Ringer's (Ringers, Lactated) 1,000 mls @ 125 mls/hr IV ASDIRECTED [facility] Last Admin: 02/01/18 02:00 Dose: 125 mls/hr - Exam General: Alert, Cooperative, No Acute Distress HEENT: Mucous Membr. Moist/[place] Neck: Supple, Trachea Midline, No Thyromegaly. No: Lymphadenopathy Lungs: Normal Respiratory Effort, Crackles (at the bases bilaterally), Wheezing (at the bases bilaterally) Cardiovascular: Regular Rate, Regular Rhythm, Murmurs GI/Abdominal Exam: Normal Bowel Sounds, Soft, Non-Tender, No Organomegaly, No Distention, No Mass Extremities: Normal Inspection, Non-Tender, No Pedal Edema, Normal Capillary Refill Peripheral Pulses: 2+: Radial (L), Radial (R) Skin: Warm, Dry, Intact - Problem List & Annotations (1) Acute kidney injury SNOMED Code(s): 85153440 Code(s): N17.9 - ACUTE KIDNEY FAILURE, UNSPECIFIED Status: Acute Current Visit: Yes Annotation/Comment:: - Secondary to diuresis in the setting of poor PO intake. Potential contribution from urinary retention as well. Also complicated by being on losartan. - Patient has been receiving IV fluids and creatinine is now down nicely to 1.3 today. - Will d/c IV fluids today and encourage him to take PO's. - He has crackles and wheezing in the lower lung huber bilaterally but this is likely at least partially dependent and patient is not symptomatic or hypoxic; will monitor for now. - Will not be starting diuretics today as patient has no significant edema on exam today. - Catheter will remain in place today for strict I/O monitoring. Will plan to remove this tomorrow and do a voiding trial. (2) BPH (benign prostatic hypertrophy) SNOMED Code(s): 655352303 Code(s): N40.0 - BENIGN PROSTATIC HYPERPLASIA WITHOUT LOWER URINRY TRACT SYMP Status: Chronic Current Visit: No Qualifiers: Lower urinary tract symptom presence: symptoms present Lower urinary tract symptom detail: urinary retention Qualified Code(s): N40.1 - Benign prostatic hyperplasia with lower urinary tract symptoms; R33.8 - Other retention of urine Annotation/Comment:: - Catheter placed yesterday due to retention of 800 without sensation to void. - Likely some contribution from retention to VLADIMIR as well. - As above, will leave the catheter in place today and do a voiding trial tomorrow. - Patient has not had chronic issues with this as far as is known and the current issue may be related to the increase in clonazepam dose. (3) Altered mental status, unspecified SNOMED Code(s): 517233379 Code(s): R41.82 - ALTERED MENTAL STATUS, UNSPECIFIED Status: Acute Priority: Medium Current Visit: No Qualifiers: Altered mental status type: delirium Qualified Code(s): R41.0 - Disorientation, unspecified Annotation/Comment:: - Had increased somnolence after increase in clonazepam. - This was decreased on admission with PRN dosing available. - He is doing much better and is answering questions appropriately. He was even able to ambulate with nursing yesterday. (4) Peripheral edema SNOMED Code(s): 409447975 Code(s): R60.9 - EDEMA, UNSPECIFIED Status: Chronic Current Visit: Yes Annotation/Comment:: - Has had chronic issues with edema. Today's exam would suggest more lymphedema than venous; however, he does have a history of significant weight gain from fluid retention. - He has tolerated the fluid load well now and is not having any lower extremity edema at this time. - Will hold off on restarting any of his diuretics. - If he starts to retain fluid, will start the bumex first. (5) Hypertension SNOMED Code(s): 54307686 Code(s): I10 - ESSENTIAL (PRIMARY) HYPERTENSION Status: Chronic Current Visit: Yes Qualifiers: Hypertension type: essential hypertension Qualified Code(s): I10 - Essential (primary) hypertension Annotation/Comment:: - Blood pressures have been borderline. - Will continue to hold losartan. - If BP's start increasing and creatinine is stable/improved tomorrow, will plan to restart this. (6) Obesity SNOMED Code(s): 501297231, 003651630 Code(s): E66.9 - OBESITY, UNSPECIFIED Status: Chronic Current Visit: Yes Qualifiers: Obesity type: due to excess calories Obesity classification: adult class 3 (BMI >= 40) Serious obesity comorbidity presence: without serious comorbidity Body mass index: BMI 40.0-44.9 Qualified Code(s): E66.01 - Morbid (severe) obesity due to excess calories; Z68.41 - Body mass index (BMI) 40.0-44.9, adult Annotation/Comment:: - [place] also to be contributing to his edema. - Patient has lost some weight with being more active. (7) Anemia SNOMED Code(s): 348424281 Code(s): D64.9 - ANEMIA, UNSPECIFIED Status: Chronic Current Visit: Yes Qualifiers: Anemia type: unspecified type Qualified Code(s): D64.9 - Anemia, unspecified Annotation/Comment:: - Patient has chronic anemia. - Admission Hgb slightly lower than previous but now essentially stable. - If not already done, can be worked up further as an outpatient. - Will monitor daily. (8) Hypercalcemia SNOMED Code(s): 51310894 Code(s): E83.52 - HYPERCALCEMIA Status: Resolved Priority: High Current Visit: Yes Annotation/Comment:: - Present on admission and now resolved. - Likely secondary to dehydration given resolution with IV fluids alone. - Will recheck tomorrow. (9) Hypokalemia SNOMED Code(s): 93905584 Code(s): E87.6 - HYPOKALEMIA Status: Acute Current Visit: Yes Annotation/Comment:: - Potassium low on admission, likely from poor PO intake. - Is down to 3.2 today. - Will continue 20 MEQ daily and adjust as indicated based on labs tomorrow. - Anticipate he will eat better today now that he is more alert so hopefully this will help the potassium as well. (10) DM2 (diabetes mellitus, type 2) SNOMED Code(s): 45472992 Code(s): E11.9 - TYPE 2 DIABETES MELLITUS WITHOUT COMPLICATIONS Status: Chronic Current Visit: No Qualifiers: Diabetes mellitus residential insulin use: with terminologist use Diabetes mellitus complication status: with kidney complications Diabetes mellitus complication detail: with chronic kidney disease Chronic kidney disease stage : stage 3 (moderate) Qualified Code(s): E11.22 - Type 2 diabetes mellitus with diabetic chronic kidney disease; N18.3 - Chronic kidney disease, stage 3 ( moderate); Z79.4 - correction (current) use of insulin Annotation/Comment:: - Glucoses have been acceptable during admission. - Continue QID glucoses. - Home insulin regimen continued. (11) Anxiety SNOMED Code(s): 79465704 Code(s): F41.9 - ANXIETY DISORDER, UNSPECIFIED Status: Chronic Current Visit: Yes Annotation/Comment:: - Clonazepam dose decreased on admission and he seems to be tolerating this ok. - Otherwise, home medications continued. (12) Depression SNOMED Code(s): 59112285 Code(s): F32.9 - MAJOR DEPRESSIVE DISORDER, SINGLE EPISODE, UNSPECIFIED Status: Chronic Current Visit: No Qualifiers: Depression Type: major depressive disorder Major depression recurrence: recurrent Active/Remission status: in full remission Qualified Code(s): F33.42 - Major depressive disorder, recurrent, in full remission Annotation/Comment:: - Home medications continued. 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 He is asymptomatic and mentation has improved. Creatinine improved to 1.3 today. - Plan Plan:: See details under problems above. Given crackles on lung exam and improvement in creatinine to 1.3 today, IV fluids will be stopped. He will be encouraged to push PO fluids. Catheter to remain in place for accurate I/O monitoring and to avoid retention. Holding diuretics and losartan with dose reduction in his clonazepam. Other home medications continued. He is on heparin for VTE prophylaxis. Anticipate he will be admitted for another 2 nights to monitor I/O and adjust medications as indicated. He also will not be able to return to the retirement over the weekend. He is DNR/DNI.
[2018-02-01] MEDS: atorvaSTATin 10 MG Tab PO SCH (21:02)
[2018-02-01] MEDS: risperiDONE 1 MG Tab PO SCH (21:02)
[2018-02-01] MEDS: Melatonin 3 MG Tab PO SCH (21:02)
[2018-02-01] MEDS: LIRAGLUTIDE 0.6 MG SUBCUT SCH (21:03)
[2018-02-02] MEDS: Doxycycline 100 MG Cap PO SCH (07:36)
[2018-02-02] MEDS: Acetaminophen 325 MG Tab PO PRN (07:36)
[2018-02-02] MEDS: Potassium Chloride 10 MEQ Tab.ER PO SCH (07:36)
[2018-02-02] MEDS: Sertraline 100 MG Tab PO SCH (07:36)
[2018-02-02] MEDS: ClonazePAM 0.5 MG Tab PO SCH ×2 (07:36→20:55)
[2018-02-02] MEDS: Heparin Sodium 5,000 Units/ML Vial SUBCUT SCH ×2 (07:36→20:54)
[2018-02-02] MEDS: Phytonadione 100 MCG Tab PO SCH (07:36)
[2018-02-02] MEDS: Insulin Aspart 100 Units/ML 3 ML Pen SUBCUT SCH ×3 (07:37→17:48)
[2018-02-02] MEDS: Insulin Detemir 100 Units/ML 3 ML Pen SUBCUT SCH (07:37)
[2018-02-02] MEDS: Lactulose Soln 10 GM/15 ML 30 ML UD Cup PO SCH (07:49)
[2018-02-02 08:26] LABS: CHLORIDE,CL 107 mmol/L (98-107); SODIUM,NA 143 mmol/L (136-145)
--- NOTE | 2018-02-02 08:51 | PCM.PN ---
- General Info Date of Service: 02/02/18 Subjective Update: 68 yo male hospital day #4 for acute on chronic renal failure secondary to decreased PO intake in the setting of chronic diuretic and ARB use. Possibly some component of retention contributing as well given prominent creatinine improvement after catheter was placed. Patient feels well today. He denies any complaints. No shortness of breath or leg swelling. No pain. He is eating and drinking well. Nursing walked with him in the tee yesterday; although he did not like this, he was able to do it without any issues. - Review of Systems General: Reports: No Symptoms HEENT: Reports: No Symptoms Pulmonary: Reports: No Symptoms Cardiovascular: Reports: No Symptoms Gastrointestinal: Reports: No Symptoms Genitourinary: Reports: No Symptoms Musculoskeletal: Reports: No Symptoms Skin: Reports: No Symptoms - Patient Data Vitals - Most Recent: Last Vital Signs Temp 36.4 C 02/02/18 06:00 Pulse 68 02/02/18 06:00 Resp 18 02/02/18 06:00 BP 117/63 02/02/18 06:00 Pulse Ox 99 02/02/18 06:00 Weight - Most Recent: 128.457 kg I&O - Last 24 Hours: Intake & Output 02/01/18 02/02/18 02/02/18 22:59 06:59 14:59 Intake Total 2519 900 360 Output Total 450 1850 Balance 2069 -950 360 Lab Results Last 24 Hours: Laboratory Results - last 24 hr 02/01/18 02/01/18 02/01/18 Range/Units 11:07 17:02 21:16 WBC (4.0-10.0) x10^3/uL RBC (4.5-6.0) x10^6/uL Hgb (14.0-18.0) g/dL Hct (40.0-52.0) % MCV (78.0-93.0) fL MCH (26.0-32.0) pg MCHC (32.0-36.0) g/dL RDW Coeff of Rupal (10.0-15.0) % Plt Count (130-400) x10^3/uL Neut % (Auto) (50.0-80.0) % Lymph % (Auto) (25.0-50.0) % [place]lin % (Auto) (2.0-11.0) % Eos % (Auto) (0.0-4.0) % Baso % (Auto) (0.2-1.2) % Sodium (136-145) mmol/L Potassium (3.5-5.1) mmol/L Chloride (98-107) mmol/L Carbon Dioxide (21-32) mmol/L Anion Gap (10-20) mmol/L BUN (7-18) mg/dL Creatinine (0.70-1.30) mg/dL Est Cr Clr Drug Dosing mL/min Estimated GFR (MDRD) Glucose (74-106) mg/dL POC Glucose 229 H 111 H 212 H (74-106) mg/dL Calcium (8.5-10.1) mg/dL 02/02/18 02/02/18 02/02/18 Range/Units 06:13 07:09 07:09 WBC 9.6 (4.0-10.0) x10^3/uL RBC 3.30 L (4.5-6.0) x10^6/uL Hgb 10.3 L (14.0-18.0) g/dL Hct 32.2 L (40.0-52.0) % MCV 97.6 H (78.0-93.0) fL MCH 31.2 (26.0-32.0) pg MCHC 32.0 (32.0-36.0) g/dL RDW Coeff of Rupal 13.6 (10.0-15.0) % Plt Count 232 (130-400) x10^3/uL Neut % (Auto) 66.7 (50.0-80.0) % Lymph % (Auto) 21.3 L (25.0-50.0) % [place]lin % (Auto) 7.4 (2.0-11.0) % Eos % (Auto) 4.3 H (0.0-4.0) % Baso % (Auto) 0.3 (0.2-1.2) % Sodium 143 (136-145) mmol/L Potassium 3.5 (3.5-5.1) mmol/L Chloride 107 (98-107) mmol/L Carbon Dioxide 26 (21-32) mmol/L Anion Gap 13.5 (10-20) mmol/L BUN 31 H D (7-18) mg/dL Creatinine 1.1 (0.70-1.30) mg/dL Est Cr Clr Drug Dosing 66.06 mL/min Estimated GFR (MDRD) > 60 Glucose 129 H (74-106) mg/dL POC Glucose 141 H (74-106) mg/dL Calcium 8.2 L (8.5-10.1) mg/dL Med Orders - Current: Current Medications Acetaminophen (Tylenol) 650 mg PO Q4H PRN PRN Reason: Pain Last Admin: 02/02/18 07:36 Dose: 650 mg Atorvastatin Calcium (Lipitor) 10 mg PO BEDTIME [facility] Last Admin: 02/01/18 21:02 Dose: 10 mg Bisacodyl (Dulcolax) 5 mg PO DAILY PRN PRN Reason: Constipation Last Admin: 01/30/18 20:51 Dose: 5 mg Clonazepam (Klonopin) 1 mg PO BID [facility] Last Admin: 02/02/18 07:36 Dose: 1 mg Clonazepam (Klonopin) 0.5 mg PO TID PRN PRN Reason: Anxiety Doxycycline Hyclate (Vibramycin) 100 mg PO DAILY [facility] Last Admin: 02/02/18 07:36 Dose: 100 mg Heparin Sodium (Porcine) (Heparin Sodium) 5,000 units SUBCUT Q12H [facility] Last Admin: 02/02/18 07:36 Dose: 5,000 units Insulin Aspart (Novolog) 4 unit SUBCUT TIDMEALS [facility] Last Admin: 02/02/18 07:37 Dose: 4 units Insulin Detemir (Levemir) 12 unit SUBCUT DAILY [facility] Last Admin: 02/02/18 07:37 Dose: 12 units Lactulose (Cephulac) 20 gm PO DAILY [facility] Last Admin: 02/02/18 07:49 Dose: Not Given Loperamide HCl (Imodium) 2 mg PO Q2H PRN PRN Reason: Diarrhea Melatonin (Melatonin) 6 mg PO BEDTIME [facility] Last Admin: 02/01/18 21:02 Dose: 6 mg Liraglutide [Victoza ] 0.6 Mg (Own Supply ) 0.6 mg SUBCUT BEDTIME [facility] Last Admin: 02/01/18 21:03 Dose: Not Given Ondansetron HCl (Zofran) 4 mg IV Q4H PRN PRN Reason: Nausea/Vomiting Phytonadione (Vitamin K) 100 mcg PO DAILY [facility] Last Admin: 02/02/18 07:36 Dose: 100 mcg Potassium Chloride (Klor-Con 10) 20 meq PO WITHBREAKFAST [facility] Last Admin: 02/02/18 07:36 Dose: 20 meq Risperidone (Risperidal) 3 mg PO BEDTIME [facility] Last Admin: 02/01/18 21:02 Dose: 3 mg Sertraline HCl (Zoloft) 100 mg PO DAILY [facility] Last Admin: 02/02/18 07:36 Dose: 100 mg Sodium Chloride (Saline Flush) 10 ml FLUSH ASDIRECTED PRN PRN Reason: Keep Vein Open Discontinued Medications Lactated Ringer's (Ringers, Lactated) 1,000 mls @ 125 mls/hr IV ASDIRECTED [facility] Last Admin: 02/01/18 02:00 Dose: 125 mls/hr - Exam General: Alert, Cooperative, No Acute Distress HEENT: Mucous Membr. Moist/[place] Neck: Supple, Trachea Midline, No Thyromegaly. No: Lymphadenopathy Lungs: Clear to Auscultation, Normal Respiratory Effort Cardiovascular: Regular Rate, Regular Rhythm, No Murmurs GI/Abdominal Exam: Normal Bowel Sounds, Soft, Non-Tender, No Organomegaly, No Distention, No Mass Extremities: Normal Inspection, Non-Tender, No Pedal Edema, Normal Capillary Refill Peripheral Pulses: 2+: Radial (L), Radial (R) Skin: Warm, Dry, Intact - Problem List & Annotations (1) Acute kidney injury SNOMED Code(s): 10317063 Code(s): N17.9 - ACUTE KIDNEY FAILURE, UNSPECIFIED Status: Acute Current Visit: Yes Annotation/Comment:: - Secondary to diuresis in the setting of poor PO intake. Potential contribution from urinary retention as well. Also complicated by being on losartan. - IV fluids discontinued yesterday when creatinine down to 1.3. Creatinine further improved to 1.1 today. - No need for additional IV fluids. Patient will continue to push PO fluids. - Will hold off on restarting any of his diuretics or losartan for now as he has not had any fluid retention or elevated blood pressures. Lungs are clear today. - Catheter will be d/c'd today and we will proceed with a voiding trial. Bladder scan for postvoid residual or if not voided in 8 hours. (2) BPH (benign prostatic hypertrophy) SNOMED Code(s): 799242226 Code(s): N40.0 - BENIGN PROSTATIC HYPERPLASIA WITHOUT LOWER URINRY TRACT SYMP Status: Chronic Current Visit: No Qualifiers: Lower urinary tract symptom presence: symptoms present Lower urinary tract symptom detail: urinary retention Qualified Code(s): N40.1 - Benign prostatic hyperplasia with lower urinary tract symptoms; R33.8 - Other retention of urine Annotation/Comment:: - Catheter placed hospital day #2 due to retention of 800 without sensation to void. - As above, will d/c the catheter today and do a voiding trial. - Patient has not had chronic issues with this as far as is known and the current issue may be related to the increase in clonazepam dose. (3) Altered mental status, unspecified SNOMED Code(s): 760011648 Code(s): R41.82 - ALTERED MENTAL STATUS, UNSPECIFIED Status: Acute Priority: Medium Current Visit: No Qualifiers: Altered mental status type: delirium Qualified Code(s): R41.0 - Disorientation, unspecified Annotation/Comment:: - Had increased somnolence after increase in clonazepam. - This was decreased on admission with PRN dosing available. - He mentation has been appropriate these past 48 hours and he has not had any increase in behaviors. (4) Peripheral edema SNOMED Code(s): 833842885 Code(s): R60.9 - EDEMA, UNSPECIFIED Status: Chronic Current Visit: Yes Annotation/Comment:: - Has had chronic issues with edema. Today's exam would suggest more lymphedema than venous; however, he does have a history of significant weight gain from fluid retention. - He has tolerated the fluid load well and still is not having any lower extremity edema at this time. - He will get weighed today during his bath to make sure he has not gained an inappropriate amount of weight. Expect some increase with the IV fluids but want to ensure it is not above and beyond expected. - Will hold off on restarting any of his diuretics. - If he starts to retain fluid, will start the bumex first. (5) Hypertension SNOMED Code(s): 92363830 Code(s): I10 - ESSENTIAL (PRIMARY) HYPERTENSION Status: Chronic Current Visit: Yes Qualifiers: Hypertension type: essential hypertension Qualified Code(s): I10 - Essential (primary) hypertension Annotation/Comment:: - Blood pressures have been acceptable. - Will continue to hold losartan as he does not seem to need this right now. - If BP's start increasing now that his creatinine is normalized, will plan to restart this. (6) Obesity SNOMED Code(s): 054582415, 215579067 Code(s): E66.9 - OBESITY, UNSPECIFIED Status: Chronic Current Visit: Yes Qualifiers: Obesity type: due to excess calories Obesity classification: adult class 3 (BMI >= 40) Serious obesity comorbidity presence: without serious comorbidity Body mass index: BMI 40.0-44.9 Qualified Code(s): E66.01 - Morbid (severe) obesity due to excess calories; Z68.41 - Body mass index (BMI) 40.0-44.9, adult Annotation/Comment:: - [place] also to be contributing to his edema. - Patient has lost some weight with being more active. (7) Anemia SNOMED Code(s): 799202880 Code(s): D64.9 - ANEMIA, UNSPECIFIED Status: Chronic Current Visit: Yes Qualifiers: Anemia type: unspecified type Qualified Code(s): D64.9 - Anemia, unspecified Annotation/Comment:: - Patient has chronic anemia. - Admission Hgb slightly lower than previous but now stable. - If not already done, can be worked up further as an outpatient. (8) Hypercalcemia SNOMED Code(s): 01371089 Code(s): E83.52 - HYPERCALCEMIA Status: Resolved Priority: High Current Visit: Yes Annotation/Comment:: - Present on admission and now resolved. Remains normal/low today. - Likely secondary to dehydration given resolution with IV fluids alone. (9) Hypokalemia SNOMED Code(s): 92713177 Code(s): E87.6 - HYPOKALEMIA Status: Acute Current Visit: Yes Annotation/Comment:: - Potassium low on admission, likely from poor PO intake. - Now 3.5 today. - Will continue 20 MEQ daily and recheck tomorrow. (10) DM2 (diabetes mellitus, type 2) SNOMED Code(s): 88412616 Code(s): E11.9 - TYPE 2 DIABETES MELLITUS WITHOUT COMPLICATIONS Status: Chronic Current Visit: No Qualifiers: Diabetes mellitus halfway insulin use: with termite treater helper use Diabetes mellitus complication status: with kidney complications Diabetes mellitus complication detail: with chronic kidney disease Chronic kidney disease stage : stage 3 (moderate) Qualified Code(s): E11.22 - Type 2 diabetes mellitus with diabetic chronic kidney disease; N18.3 - Chronic kidney disease, stage 3 ( moderate); Z79.4 - intermediate (current) use of insulin Annotation/Comment:: - Glucoses have been acceptable during admission. - Continue QID glucoses. - Home insulin regimen continued. (11) Anxiety SNOMED Code(s): 85193281 Code(s): F41.9 - ANXIETY DISORDER, UNSPECIFIED Status: Chronic Current Visit: Yes Annotation/Comment:: - Clonazepam dose decreased on admission and he seems to be tolerating this ok. - Otherwise, home medications continued. (12) Depression SNOMED Code(s): 73529606 Code(s): F32.9 - MAJOR DEPRESSIVE DISORDER, SINGLE EPISODE, UNSPECIFIED Status: Chronic Current Visit: No Qualifiers: Depression Type: major depressive disorder Major depression recurrence: recurrent Active/Remission status: in full remission Qualified Code(s): F33.42 - Major depressive disorder, recurrent, in full remission Annotation/Comment:: - Home medications continued. 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 He is asymptomatic and mentation has improved. Creatinine has normalized today. - Plan Plan:: See details under problems above. Creatinine now normal; no evidence of fluid retention. He will be encouraged to push PO fluids. Catheter to be removed today with a subsequent voiding trial. Continue holding diuretics and losartan and dose reduction in his clonazepam. Other home medications continued. He is on heparin for VTE prophylaxis. Anticipate he will be prepared for dismissal back to the [facility] tomorrow. He is DNR/DNI.
[2018-02-02] MEDS ORDERED: Lactated Ringers 1,000 ML IV SCH (10:30)
[2018-02-02] MEDS: atorvaSTATin 10 MG Tab PO SCH (20:54)
[2018-02-02] MEDS: risperiDONE 1 MG Tab PO SCH (20:54)
[2018-02-02] MEDS: LIRAGLUTIDE 0.6 MG SUBCUT SCH (20:55)
[2018-02-02] MEDS: Melatonin 3 MG Tab PO SCH (20:55)
[2018-02-03] MEDS: Phytonadione 100 MCG Tab PO SCH (08:01)
[2018-02-03] MEDS: Sertraline 100 MG Tab PO SCH (08:01)
[2018-02-03] MEDS: ClonazePAM 0.5 MG Tab PO SCH (08:01)
[2018-02-03] MEDS: Heparin Sodium 5,000 Units/ML Vial SUBCUT SCH (08:01)
[2018-02-03] MEDS: Doxycycline 100 MG Cap PO SCH (08:01)
[2018-02-03] MEDS: Lactulose Soln 10 GM/15 ML 30 ML UD Cup PO SCH (08:01)
[2018-02-03 08:03] LABS: CHLORIDE,CL 107 mmol/L (98-107); SODIUM,NA 142 mmol/L (136-145)
[2018-02-03] MEDS: Insulin Detemir 100 Units/ML 3 ML Pen SUBCUT SCH (08:03)
[2018-02-03] MEDS: Insulin Aspart 100 Units/ML 3 ML Pen SUBCUT SCH (08:04)
[2018-02-03] MEDS: Potassium Chloride 10 MEQ Tab.ER PO SCH (09:14)
[2018-02-03 09:31] VITALS: BP 116/51
--- NOTE | 2018-02-03 20:54 | PCM.DCSUM1 ---
Discharge Summary - Hospital Course Free Text/Narrative:: Final Diagnoses: -Morbid obesity -Type 2 diabetes -Chronic leg edema -Hx stasis ulcers of lower legs, inactive -Acute kidney disease secondary to overdiuresis, improved Secondary Diagnoses: -Hypertension -Hyperlipidemia -Cognitive impairment -Hx of DVT, on Coumadin until 12/03 -Hx of lumbar fusion for unstable Fx, postop wound infection, surgical debridement Reason for Admission: Sent from [facility] with difficulty transferring, increased lethargy, rising creatinine. Initial Findings: -Creatinine up to 2.75, BUN 92 -Heart and lung exam OK -Only trace edema in his lower legs -Hypotensive, BP 100/56 Treatment and Course in Hospital: He was taken off of all of his diuretics, including Bumex, spironolactone, metolazone and he did not develop any recurrence of his ankle edema, creatinine fell gradually to 1.0, and he had only mild difficulty with transferring, did not show any sign of fluid overload. He even got some extra IV fluids the day prior to discharge because he was again hypotensive. I could not find a reason for him being on vitamin K so that was stopped on D/C. Condition on discharge -BP 116/51 -HR 80 -Abdomen soft and nontender -Lungs clear -He is fairly responsive, able to smile and converse a bit Discharge Plan: -Back to [facility], no longer on diuretics -We will need to watch for orthopnea and/or increased leg edema -I will see on rounds on 02/11/18 - Discharge Data Discharge Date: 02/03/18 Discharge Disposition: DC/Tfer to [facility] 03 Condition: Good - Patient Summary/Data Consults: Consultations 01/30/18 18:58 PT Evaluation and Treatment [CONS] Routine - Discharge Plan Home Medications: Home Meds Bisacodyl [Dulcolax] 5 mg PO DAILY PRN 10/13/16 [History] Calcium Citrate/Vitamin D3 [Calcium Citrate - Vit D Caplet] 1 tab PO BIDMEALS [History] ClonazePAM [KlonoPIN] 2 mg PO BID 10/13/16 [History] Insulin Detemir [Levemir Flextouch] 12 unit SQ DAILY 10/13/16 [History] Liraglutide [Victoza] 0.6 mg SUBCUT BEDTIME 10/13/16 [History] Multivitamin [Daily Doc] 1 each PO DAILY 10/13/16 [History] Commodore-3/DHA/Epa/Fish Oil [Commodore 3 500 Softgel] 1,000 mg PO BID 10/13/16 [History ] risperiDONE [Risperdal] 3 mg PO BEDTIME 10/13/16 [History] Insulin Aspart [NovoLOG] 4 unit SUBCUT TIDMEALS pen 11/30/16 [Rx] atorvaSTATin [Lipitor] 10 mg PO BEDTIME tablet 11/30/16 [Rx] Acetaminophen [Tylenol] 650 mg PO Q4H PRN 10/19/17 [History] Doxycycline [Vibramycin] 100 mg PO DAILY 10/19/17 [History] Loperamide HCl [Anti-Diarrheal] 2 mg PO ASDIRECTED PRN 10/19/17 [History] Melatonin 6 mg PO BEDTIME 10/19/17 [History] Sertraline HCl 100 mg PO DAILY 10/19/17 [History] - Patient Data Vitals - Most Recent: Last Vital Signs Temp 36.9 C 02/03/18 09:29 Pulse 80 02/03/18 09:29 Resp 16 02/03/18 09:29 BP 116/51 L 02/03/18 09:29 Pulse Ox 100 02/03/18 09:29 Weight - Most Recent: 118.977 kg I&O - Last 24 hours: Intake & Output 02/03/18 02/03/18 02/03/18 06:59 14:59 22:59 Intake Total 720 360 Output Total 600 Balance 120 360 Lab Results - Last 24 hrs: Laboratory Results - last 24 hr 02/02/18 02/03/18 02/03/18 Range/Units 21:04 06:18 07:25 Sodium 142 (136-145) mmol/L Potassium 3.7 (3.5-5.1) mmol/L Chloride 107 (98-107) mmol/L Carbon Dioxide 25 (21-32) mmol/L Anion Gap 13.7 (10-20) mmol/L BUN 20 H (7-18) mg/dL Creatinine 1.0 (0.70-1.30) mg/dL Est Cr Clr Drug Dosing 72.66 mL/min Estimated GFR (MDRD) > 60 Glucose 128 H (74-106) mg/dL POC Glucose 142 H 124 H (74-106) mg/dL Calcium 8.1 L (8.5-10.1) mg/dL Med Orders - Current: Current Medications Discontinued Medications Acetaminophen (Tylenol) 650 mg PO Q4H PRN PRN Reason: Pain Last Admin: 02/02/18 07:36 Dose: 650 mg Atorvastatin Calcium (Lipitor) 10 mg PO BEDTIME [facility] Last Admin: 02/02/18 20:54 Dose: 10 mg Bisacodyl (Dulcolax) 5 mg PO DAILY PRN PRN Reason: Constipation Last Admin: 01/30/18 20:51 Dose: 5 mg Clonazepam (Klonopin) 1 mg PO BID [facility] Last Admin: 02/03/18 08:01 Dose: 1 mg Clonazepam (Klonopin) 0.5 mg PO TID PRN PRN Reason: Anxiety Doxycycline Hyclate (Vibramycin) 100 mg PO DAILY [facility] Last Admin: 02/03/18 08:01 Dose: 100 mg Heparin Sodium (Porcine) (Heparin Sodium) 5,000 units SUBCUT Q12H [facility] Last Admin: 02/03/18 08:01 Dose: 5,000 units Lactated Ringer's (Ringers, Lactated) 1,000 mls @ 125 mls/hr IV ASDIRECTED [facility] Last Admin: 02/01/18 02:00 Dose: 125 mls/hr Lactated Ringer's (Ringers, Lactated) 1,000 mls @ 999 mls/hr IV ASDIRECTED [facility] Last Admin: 02/02/18 11:10 Dose: 999 mls/hr Insulin Aspart (Novolog) 4 unit SUBCUT TIDMEALS [facility] Last Admin: 02/03/18 08:04 Dose: 4 units Insulin Detemir (Levemir) 12 unit SUBCUT DAILY [facility] Last Admin: 02/03/18 08:03 Dose: 12 units Lactulose (Cephulac) 20 gm PO DAILY [facility] Last Admin: 02/03/18 08:01 Dose: Not Given Loperamide HCl (Imodium) 2 mg PO Q2H PRN PRN Reason: Diarrhea Melatonin (Melatonin) 6 mg PO BEDTIME [facility] Last Admin: 02/02/18 20:55 Dose: 6 mg Liraglutide [Victoza ] 0.6 Mg (Own Supply ) 0.6 mg SUBCUT BEDTIME [facility] Last Admin: 02/02/18 20:55 Dose: Not Given Ondansetron HCl (Zofran) 4 mg IV Q4H PRN PRN Reason: Nausea/Vomiting Phytonadione (Vitamin K) 100 mcg PO DAILY [facility] Last Admin: 02/03/18 08:01 Dose: 100 mcg Potassium Chloride (Klor-Con 10) 20 meq PO WITHBREAKFAST [facility] Last Admin: 02/03/18 09:14 Dose: Not Given Risperidone (Risperidal) 3 mg PO BEDTIME [facility] Last Admin: 02/02/18 20:54 Dose: 3 mg Sertraline HCl (Zoloft) 100 mg PO DAILY [facility] Last Admin: 02/03/18 08:01 Dose: 100 mg Sodium Chloride (Saline Flush) 10 ml FLUSH ASDIRECTED PRN PRN Reason: Keep Vein Open
== END 2018-02-03 10:25 | DRG 683 ==
LOC: VM.MS 16:37
PROVIDERS: ADMIT Internal Medicine; ATTEND Family Medicine
DX: N17.9 Acute kidney failure, unspecified (principal); F05 Delirium due to known physiological condition; Z68.41 Body mass index [BMI] 40.0-44.9, adult; E66.01 Morbid (severe) obesity due to excess calories; R60.0 Localized edema; T50.2X5A Adverse effect of carbonic-anhydrase inhibitors, benzothiadiazides and other diuretics, initial encounter; E78.5 Hyperlipidemia, unspecified; Z86.718 Personal history of other venous thrombosis and embolism; Z79.01 Long term (current) use of anticoagulants; Z98.1 Arthrodesis status; I95.9 Hypotension, unspecified; Z79.4 Long term (current) use of insulin; Z79.899 Other long term (current) drug therapy; E11.22 Type 2 diabetes mellitus with diabetic chronic kidney disease; I12.9 Hypertensive chronic kidney disease with stage 1 through stage 4 chronic kidney disease, or unspecified chronic kidney disease; M19.90 Unspecified osteoarthritis, unspecified site; G25.81 Restless legs syndrome; F41.9 Anxiety disorder, unspecified; F32.9 Major depressive disorder, single episode, unspecified; I35.0 Nonrheumatic aortic (valve) stenosis; Z88.8 Allergy status to other drugs, medicaments and biological substances; Z86.010 Personal history of colon polyps; R15.9 Full incontinence of feces; R13.12 Dysphagia, oropharyngeal phase; F70 Mild intellectual disabilities; F60.6 Avoidant personality disorder; I87.8 Other specified disorders of veins; L85.3 Xerosis cutis; F10.20 Alcohol dependence, uncomplicated; E83.52 Hypercalcemia; E86.0 Dehydration; R53.83 Other fatigue; T42.4X5A Adverse effect of benzodiazepines, initial encounter; D64.9 Anemia, unspecified; F91.9 Conduct disorder, unspecified; N40.1 Benign prostatic hyperplasia with lower urinary tract symptoms; R33.8 Other retention of urine; E87.6 Hypokalemia; N18.3 Chronic kidney disease, stage 3 (moderate); Z66 Do not resuscitate; E86.9 Volume depletion, unspecified
CPT/HCPCS: 36415; 51702; 51798; 80048; 80053; 81001; 82962; 83735; 85025; 85652; 86140; A9270-GY; J1644; J1815-GY; J7120